=== PATIENT | female | born 1935 | race Caucasian/White ===

== ENCOUNTER 2018-02-08 17:06 | Inpatient (IN) | payer MEDICARE, OTHER ==
--- NOTE | 2018-02-08 17:30 | ED Physician Chart ---
ED Chief Complaint/HPI - Patient Information Date Seen:: 02/08/18 Time Seen:: 17:00 Chief Complaint:: Agitation History of Present Illness:: onset x 3 days of agitation and hostile behavior; no SIs, trauma, H/as, neck pain, C/P, SOB, cough, Abd. Pain, A/N/V/D/C, fever, chills, or urinary s/s Allergies:: Allergies Allergy/AdvReac Type Severity Reaction Status Date / Time adhesive Allergy Verified 04/08/16 11:53 albuterol Allergy Verified 04/08/16 11:53 amiodarone Allergy Verified 04/08/16 11:53 bacitracin Allergy Verified 04/08/16 11:53 baclofen Allergy Verified 02/08/18 17:13 cephalexin Allergy Verified 04/08/16 11:53 doxycycline Allergy Verified 04/08/16 11:53 erythromycin base Allergy Verified 04/08/16 11:53 latex Allergy Verified 04/08/16 11:53 neomycin Allergy Verified 04/08/16 11:53 orphenadrine Allergy Verified 04/08/16 11:53 Penicillins [PCN] Allergy Verified 04/08/16 11:53 polymyxin B Allergy Verified 04/08/16 11:53 sulfamethoxazole Allergy Verified 04/08/16 11:53 [From Bactrim] tamsulosin Allergy Verified 04/08/16 11:53 tetracycline Allergy Verified 04/08/16 11:53 trimethoprim [From Bactrim] Allergy Verified 04/08/16 11:53 NATURAL RUBBER Allergy Uncoded 05/27/15 19:18 Historian:: Patient, EMS Review:: Nurse's Note Reviewed, Old Chart Reviewed, EMS run form Reviewed <Zachariah Canales - Last Filed: 02/08/18 17:25> - Patient Information Allergies:: Allergies Allergy/AdvReac Type Severity Reaction Status Date / Time adhesive Allergy Verified 04/08/16 11:53 albuterol Allergy Verified 04/08/16 11:53 amiodarone Allergy Verified 04/08/16 11:53 bacitracin Allergy Verified 04/08/16 11:53 baclofen Allergy Verified 02/08/18 17:13 cephalexin Allergy Verified 04/08/16 11:53 doxycycline Allergy Verified 04/08/16 11:53 erythromycin base Allergy Verified 04/08/16 11:53 latex Allergy Verified 04/08/16 11:53 neomycin Allergy Verified 04/08/16 11:53 orphenadrine Allergy Verified 04/08/16 11:53 Penicillins [PCN] Allergy Verified 04/08/16 11:53 polymyxin B Allergy Verified 04/08/16 11:53 sulfamethoxazole Allergy Verified 02/08/18 17:28 [From Bactrim] tamsulosin Allergy Verified 04/08/16 11:53 tetracycline Allergy Verified 04/08/16 11:53 trimethoprim [From Bactrim] Allergy Verified 02/08/18 17:28 NATURAL RUBBER Allergy Uncoded 05/27/15 19:18 Vitals:: Vital Signs - 8 hr 02/08/18 17:15 Temp 97.0 F HR 100 RR 21 BP 132/73 O2 Sat % 95 <Kurtis Haywood - Last Filed: 02/08/18 19:31> ED Review of Systems - Review of Systems General/Constitutional: No fever, No chills, No weight loss, No weakness, No diaphoresis, No edema, No loss of appetite Skin: No skin lesions, No rash, No bruising Head: No headache, No light-headedness Eyes: No loss of vision, No pain, No diplopia ENT: No earache, No nasal drainage, No sore throat, No tinnitus Neck: No neck pain, No swelling, No thyromegaly, No stiffness, No mass noted Cardio Vascular: No chest pain, No palpitations, No PND, No orthopnea, No edema Pulmonary: No SOB, No cough, No sputum, No wheezing GI: No nausea, No vomiting, No diarrhea, No pain, No melena, No hematochezia, No constipation, No hematemesis G/U: No dysuria, No frequency, No hematuria, No nacturia Electrical Prospector: No vaginal discharge, No abnormal vaginal bleed, No contraction Musculoskeletal: No bone or joint pain, No back pain, No muscle pain Endocrine: No polyuria, No polydipsia Psychiatric: Prior psych history, Depression, Anxiety, No suicidal ideation, No homicidal ideation, No auditory hallucination, No visual hallucination Hematopoietic: No bruising, No lymphadenopathy Allergic/Immuno: No urticaria, No angioedema Neurological: No syncope, No focal symptoms, No weakness, No paresthesia, No headache, No seizure, No dizziness, No confusion, No vertigo <Zachariah Canales - Last Filed: 02/08/18 17:25> ED Past Medical History - Past Medical History Obtainable: Yes Past Medical History: HTN, CAD, Dyslipidemia, Arthritis Family History: Heart disease, HTN Social History: Non Smoker, No Alcohol, No Drug Use, Single, Care Facility Surgical History: None Psychiatricy History: Depression, Bipolar Medication: Reviewed <AllyZachariah Last Filed: 02/08/18 17:25> Family Medical History - Family Member Brother History Unknown: Yes Ethnicity: Non- Living Status: Hx Family Cancer: Yes (SKIN CANCER) Hx Family Stroke: Yes Father History Unknown: Yes <Zachariah Canales Filed: 02/08/18 17:25> ED Physical Exam - Physical Examination General/Constitutional: Awake, Well-developed, well-nourished, Alert, No distress, GCS 15, Non-toxic appearing, Ambulatory Head: Atraumatic Eyes: Lids, conjuctiva normal, PERRL, EOMI Skin: Nl inspection, No rash, No skin lesions, No ecchymosis, Well hydrated, No lymphadenopathy ENMT: External ears, nose nl, TM canals nl, Nasal exam nl, Lips, teeth, gums nl , Oropharynx nl, Tonsils nl Neck: Nontender, Full ROM w/o pain, No JVD, No nuchal rigidity, No bruit, No mass, No stridor Respiratory: Nl effort/Exclusion, Clear to Auscultation, No Wheeze/Rhonchi/Rales Cardio Vascular: RRR, No murmur, gallop, rubs, NL S1 S2, Carotid/Femoral/Distal pulses equal bilaterally GI: No tenderness/rebounding/guarding, No organomegaly, No hernia, Normal BS's, Nondistended, No mass/bruits, No McBurney tenderness : No CVA tenderness Extremities: No tenderness or effusion, Full ROM, normal strength in all extremities, No edema, Normal digits & nails Neuro/Psych: Alert/oriented, DTR's symmetric, Normal sensory exam, Normal motor strength, Judgement/insight normal, Mood normal, Normal gait, No focal deficits Misc: Normal back, No paraspinal tenderness <AllyZachariah - Last Filed: 02/08/18 17:25> ED Assessment - Assessment General Assessment: Patient has had aggressive behavior for the last 5 days at her [facility] facility. 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 Surgeries hysterectomy and possible ankle surgery. Habits patient never smoked but may Use alcohol. Family history positive for hypertension. Patient is well- developed well-nourished no acute distress. She is loud, angry, uses profanity. When asked the correct year she states she knows but declined to say. Patient's well-developed well-nourished no acute distress. HEENT grossly normal. Patient is normally. Anterior chest clear to auscultate. Heart regular rhythm with no murmur or extra sound abdomen is protuberant, soft and without guarding.. <Kurtis Haywood - Last Filed: 02/08/18 19:31> ED Septic Shock - . Is Septic Shock (SBP<90, OR Lactate>4 mmol\L) present?: No <Zachariah Canales - Last Filed: 02/08/18 17:25> - <6hrs of presentation: Vital Signs: Vital Signs - 8 hr 02/08/18 17:15 Temp 97.0 F HR 100 RR 21 BP 132/73 O2 Sat % 95 <Kurtis Haywood - Last Filed: 02/08/18 19:31> ED Reassessment (Disposition) - Diagnosis Diagnosis:: Agitation; aggressive behavior - Patient Disposition Admitting Medical Physician:: Emiliano Ann Admitting Psych Physician:: Adelso Aldana <Kurtis Haywood - Last Filed: 02/08/18 19:31>
[2018-02-08] MEDS ORDERED: Haloperidol Lactate 5 mg/mL 1mL Vial IM STA ×2 (17:39→19:37)
[2018-02-08] MEDS ORDERED: Haloperidol Lactate 5 mg/mL 1mL Vial ONE ×2 (17:44→19:22)
[2018-02-08 22:19] LABS: % BASOPHILS 0.6 % (0.0-2.0); % LYMPHOCYTES 24.1 % (20.0-50.0); % MONOCYTES 12.1 % (2.0-10.0); % NEUTROPHILS 60.2 % (40.0-80.0); EOSINOPHILE ABSOLUTE 0.2 Th/cmm (0.1-0.4); HEMATOCRIT 37.9 % (41.0-60); HEMOGLOBIN 12.5 gm/dL (12-16); LYMPHOCYTE ABSOLUTE 1.9 Th/cmm (1.5-3.0); MEAN CELL VOLUME 88.8 fl (81-100); MEAN CORPUSCULAR HEMOGLOBIN 29.3 pg (27.0-31.0); MEAN PLATELET VOLUME 9.6 fl; MONOCYTE ABSOLUTE 0.9 Th/cmm (0.3-1.0); NEUTROPHILE ABSOLUTE 4.8 Th/cmm (1.8-8.0); PLATELET COUNT 151 Th/cmm (150-400); RED BLOOD COUNT 4.27 Mil/cmm (3.80-5.20); RED CELL DISTRIBUTION WIDTH 13.1 % (11.5-20.0); WHITE BLOOD COUNT 7.8 Th/cmm (4.8-10.8)
[2018-02-08 22:38] LABS: ACETAMINOPHEN < 10.0 ug/mL (10.0-30.0); ALB/GLOB RATIO 1.2 (1.0-1.8); ALBUMIN 3.4 gm/dL (3.7-5.3); ALKALINE PHOSPHATASE 88 U/L (34-104); ANION GAP 11.1 (7.0-16.0); BILIRUBIN,TOTAL 0.5 mg/dL (0.3-1.0); BUN - UREA NITROGEN 33 mg/dL (7-25); CARBON DIOXIDE 25.9 mEq/L (21.0-31.0); CHLORIDE 100 mEq/L (98-107); CHOLESTEROL 120 mg/dL (<200); CREATININE - SERUM 1.3 mg/dL (0.6-1.2); GLUCOSE 138 mg/dL (70-105); HDL -HIGH DENSITY LIPOPROTEIN 34 mg/dL (23-92); SALICYLATES (ASPIRIN) < 25.0 mg/L (30.0-100.0); SGOT 13 U/L (13-39); SGPT/ALT 11 U/L (7-52); SODIUM SERUM 133 mEq/L (136-145); TOTAL PROTEIN,SERUM 6.3 gm/dL (6.0-8.3); TRIGLYCERIDES 107 mg/dL (<150)
[2018-02-09 01:46] VITALS: BP 119/90
[2018-02-09] MEDS ORDERED: Maalox 30 mL Cup PO PRN (01:57)
[2018-02-09] MEDS ORDERED: APAP/Oxycodone 5/325mg Oral Tab PO PRN ×2 (01:57→03:18)
[2018-02-09] MEDS ORDERED: Ipratropium Neb 0.5 mg/2.5 mL UD HHN PRN (06:45)
[2018-02-09] MEDS ORDERED: Diltiazem CD 120 mg 24H PO SCH (07:30)
[2018-02-09] MEDS ORDERED: INSULIN ASPART, RECOMBINANT 100 UNITS/ML SUBQ SCH (07:30)
[2018-02-09] MEDS: Aspirin 81mg Chewable Tab PO SCH (08:00)
[2018-02-09] MEDS: Diltiazem 30 mg Tab PO SCH ×2 (08:00→16:05)
[2018-02-09] MEDS: Fish Oil 1,000 MG SGL PO SCH ×2 (08:00→16:05)
[2018-02-09] MEDS: Pantoprazole 40 mg EC Tab PO SCH (08:01)
[2018-02-09] MEDS: Multivitamin w/ Minerals Tab PO SCH (08:01)
--- NOTE | 2018-02-09 09:22 | History and Physical ---
History of Present Illness - HPI Chief Complaint: Increased in agitation HPI: Patient is a permanent resident of a SNF, she was send for evaluation due to increased in agitation. 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 OPERATOR: Report: No Pertinent Hx GI: Report: No Pertinent Hx Psych: Report: Psychosis, Schizophrenia Musculoskeletal: Report: No Pertinent Hx Rheumatologic: Report: No pertinent Hx Infectious Disease: Report: No Pertinent Hx Renal/: Report: No Pertinent Hx Endocrine: Report: Diabetes, Hypothyroidism Dermatology: Report: No Pertinent Hx - Past Surgical History Past Surgical History: No pertinent Hx Family Medical History - Family Member Brother History Unknown: Yes Ethnicity: Unknown Living Status: Unknown Hx Family Cancer: Yes (SKIN CANCER) Hx Family Stroke: Yes Father History Unknown: Yes Ethnicity: Unknown Living Status: Unknown Social History Smoke: No Alcohol: None Drugs: None Lives: Shelter Domestic Violence: Negative - Medications Home Medications: Home Medication Medication Instructions Recorded Type Aspirin [Aspirin Chewable] 81 mg PO DAILY 05/27/15 History Carvedilol [Coreg] 3.125 mg PO BID 05/27/15 History Docusate Sodium [Colace] 100 mg PO DAILY 05/27/15 History Furosemide [Lasix] 20 mg PO DAILY 05/27/15 History Insulin Glargine, Recombinan 40 units SUBQ Q12HR 05/27/15 History [Lantus] Lactobac/Bifidobac/Glob Pr Con 1 each PO QPM #0 05/27/15 History [Ultra Alannah Plus Capsule] Cyanocobalamin/Folic Acid [Vitamin 1,000 mcg PO DAILY 04/16/16 History Q27-Xelig Acid Tablet] Fluocinonide 0.05% Cream [Lidex 1 appl TP Q12HR PRN 04/16/16 History 0.05%] APAP/Oxycodone 5/325mg Oraltab 1 tab PO Q6H PRN #0 tab 04/21/16 Rx [Percocet 5/325Mg Oral Tab] Lorazepam [Ativan] 0.5 mg PO Q6H PRN #0 tab 04/21/16 Rx Diltiazem [Cardizem*] 60 mg PO DAILY #0 tab 04/27/16 Rx Atorvastatin Calcium [Lipitor] 40 mg PO HS 02/08/18 History Cranberry Fruit Extract [Cranberry] 425 mg PO DAILY 02/08/[address] [Depakote DR] 125 mg PO BID 02/08/18 History Fish Oil [Kaplan 3] 1,000 mg PO BID 02/08/18 History Folic Acid 0.8 mg PO DAILY 02/08/18 History Gabapentin [Neurontin] 400 mg PO Q8HR 02/08/18 History Insulin Aspart, Recombinant 5 units SUBQ ACHS 02/08/18 History [NovoLOG] Ipratropium Neb 0.5 mg/2.5 mL 0.5 mg HHN Q6HR PRN 02/08/18 History [Atrovent Neb 0.5MG/2.5ML] Losartan Potassium [Cozaar] 50 mg PO DAILY 02/08/18 History Magnesium Oxide [Mag-Oxide] 500 mg PO DAILY 02/08/18 History Montelukast [Singulair] 10 mg PO HS 02/08/18 History Multivitamin w/ Minerals 1 tab PO DAILY 02/08/18 History [Theragran M] Pantoprazole Sodium 40 mg PO DAILY 02/08/18 History Propafenone HCl [Rythmol] 325 mg PO Q12H 02/08/18 History QUEtiapine Fumarate [SEROquel] 150 mg PO BID 02/08/18 History Spironolactone [Aldactone] 25 mg PO DAILY 02/08/18 History - Allergies Allergies/Adverse Reactions: Allergies Allergy/AdvReac Type Severity Reaction Status Date / Time adhesive Allergy Verified 04/08/16 11:53 albuterol Allergy Verified 04/08/16 11:53 amiodarone Allergy Verified 04/08/16 11:53 bacitracin Allergy Verified 04/08/16 11:53 baclofen Allergy Verified 02/08/18 17:13 cephalexin Allergy Verified 04/08/16 11:53 doxycycline Allergy Verified 04/08/16 11:53 erythromycin base Allergy Verified 04/08/16 11:53 latex Allergy Verified 04/08/16 11:53 neomycin Allergy Verified 04/08/16 11:53 orphenadrine Allergy Verified 04/08/16 11:53 Penicillins [PCN] Allergy Verified 04/08/16 11:53 polymyxin B Allergy Verified 04/08/16 11:53 sulfamethoxazole Allergy Verified 02/08/18 17:28 [From Bactrim] tamsulosin Allergy Verified 04/08/16 11:53 tetracycline Allergy Verified 04/08/16 11:53 trimethoprim [From Bactrim] Allergy Verified 02/08/18 17:28 NATURAL RUBBER Allergy Uncoded 05/27/15 19:18 Review of Systems - Review of Systems Constitutional: Report: Weakness Eyes: Report: No Significant ENT: Report: No Significant Respiratory: Report: No Significant Cardiovascular: Report: No Significant Gastrointestinal: Report: No Significant Genitourinary: Report: No Significant Musculoskeletal: Report: No Significant Skin: Report: No Significant Neurological: Report: No Significant Physical Exam - Physical Exam HEENT: Report: Ears Nose Throat within normal limits Neck: Report: Within normal limits Cardiovascular Systems: Report: Regular, Rate and Rhythm Respiratory: Report: Breath Sounds are within normal limits Abdomen: Report: Non-tender to palpation Back: Report: Inspection of back is within normal limits. Extremities: Report: Non-tender to palpation. Skin: Report: Color of skin is within normal limits, Warm, Dry Neuro/Psych: Report: Disoriented to name time or place - Lab Results All Lab Results last 24 hours: Laboratory Results - last 24 hr 02/08/18 02/08/18 02/08/18 21:54 21:54 21:54 WBC 7.8 RBC 4.27 Hgb 12.5 Hct 37.9 L MCV 88.8 MCH 29.3 MCHC Differential 33.0 RDW 13.1 Plt Count 151 MPV 9.6 Neutrophils % 60.2 Lymphocytes % 24.1 Monocytes % 12.1 H Eosinophils % 3.0 Basophils % 0.6 Sodium 133 L Potassium 4.0 Chloride 100 Carbon Dioxide 25.9 Anion Gap 11.1 BUN 33 H Creatinine 1.3 H Est GFR ( Amer) TNP Est GFR (Non-Af Amer) TNP BUN/Creatinine Ratio 25.4 Glucose 138 H Calcium 9.0 Total Bilirubin 0.5 AST 13 ALT 11 Alkaline Phosphatase 88 Total Protein 6.3 Albumin 3.4 L Globulin 2.9 Albumin/Globulin Ratio 1.2 Triglycerides 107 Cholesterol 120 LDL Cholesterol Direct 68 L HDL Cholesterol 34 TSH 4.07 Salicylates < 25.0 L Acetaminophen < 10.0 L Valproic Acid Ethyl Alcohol < 10 02/08/18 21:54 WBC RBC Hgb Hct MCV MCH MCHC Differential RDW Plt Count MPV Neutrophils % Lymphocytes % Monocytes % Eosinophils % Basophils % Sodium Potassium Chloride Carbon Dioxide Anion Gap BUN Creatinine Est GFR ( Amer) Est GFR (Non-Af Amer) BUN/Creatinine Ratio Glucose Calcium Total Bilirubin AST ALT Alkaline Phosphatase Total Protein Albumin Globulin Albumin/Globulin Ratio Triglycerides Cholesterol LDL Cholesterol Direct HDL Cholesterol TSH Salicylates Acetaminophen Valproic Acid < 10.0 L Ethyl Alcohol - Assessment Assessment: Patient is awake, alert, confused, not oriented. Dx: Increased in agitation, schizophrenia, DM, CAD, A-fib, HTN - Plan Plan: Patient under psychiatric care, will continue with SNF meds.
[2018-02-09] MEDS: Insulin Detemir 100 units/mL 10mL Vial SUBQ SCH ×2 (10:37→20:51)
[2018-02-09] MEDS: INSULIN ASPART SLIDING SCALE 100 UNITS/ML UNIT SUBQ SCH ×3 (11:07→20:50)
[2018-02-09] MEDS ORDERED: Haloperidol Lactate 5 mg/mL 1mL Vial IM ONE (16:02)
[2018-02-09] MEDS ORDERED: Haloperidol Lactate 5 mg/mL 1mL Vial ONE (16:03)
--- NOTE | 2018-02-09 19:40 | Psychosocial Evaluation ---
DATE OF SERVICE: 02/09/2018 IDENTIFYING DATA: The patient is an 82-year-old woman, resident of [facility]. Information obtained by directly interviewing the patient as well as reviewing the admission papers and they are reliable. DISPOSITION HOSPITALIZATION: The patient is admitted 5150 as a danger to others and being gravely disabled. CHIEF COMPLAINT: "I should not be in here to get me out of here." HISTORY OF PRESENT ILLNESS: This is one of multiple psychiatric hospitalizations for this patient who was under my care in 2016. The patient is reported to have been diagnosed to have psychosis and is out of control, screaming and yelling. The patient has been yelling, screaming and striking out at the staff members. On that basis, the patient has been placed on a 5150 and admitted over here for stabilization. PAST PSYCHIATRIC HISTORY: Sleep and appetite prior to the hospitalization are reported to be poor. The patient is reported to have been having major problem for the past 1B and could not be contained at a lower level of care. PAST PSYCHIATRIC HISTORY: The patient has a long history of psychiatric problems and patient had been medicated in the past. MEDICAL HISTORY AND PHYSICAL EXAMINATION: Requested to be done by Dr. Ann. SUBSTANCE ABUSE HISTORY: None. PHYSICAL OR SEXUAL ABUSE HISTORY: None. LEGAL PROBLEMS: None at this time. 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 The patient is reporting that her a long time ago. The patient has three adopted children, all of them are trying to kill her for no reason. MENTAL STATUS EXAMINATION: The patient is an 82-year-old woman looking her stated age, superficially cooperative. Eye contact is poor. Mood is irritable. Affect is constricted. The patient has been screaming and yelling and has been verbally abusive towards the staff members. The patient is alert and awake. Insight and judgment are very much impaired. Impulse control is very poor. The patient has paranoia, but denies any command hallucinations. The patient has no impulse control at this time. The patient's short term memory is noted to be poor. Long-term memory seems to be fair. DIAGNOSTIC IMPRESSION: AXIS I: Psychotic disorder, not otherwise specified. AXIS II: None. AXIS III: As per Dr. Ann. IMMEDIATE TREATMENT PLAN: The patient is going to be observed on inpatient unit, provided with supportive psychotherapy. The patient is going to be closely monitored. We encouraged to participate in the groups and verbalize the concerns. The patient is going to be continued on her valproic acid 120 mg twice a day and the patient is going to be continued with the Seroquel, which is going to be 50 mg twice a day, which is going to be gradually increased. Estimated length of stay 5-7 days. DISCHARGE CRITERIA: When she no longer a threat to self or others and be able to cope up with the stress. Please note that the patient is to be discharged to a lower level of care yet. [facility]# [id number]
[2018-02-09 20:13] LABS: A1C % 9.5 % (4.0-6.0)
[2018-02-10] MEDS: INSULIN ASPART SLIDING SCALE 100 UNITS/ML UNIT SUBQ SCH ×4 (06:29→21:08)
[2018-02-10] MEDS: Aspirin 81mg Chewable Tab PO SCH (08:15)
[2018-02-10] MEDS: Diltiazem 30 mg Tab PO SCH ×2 (08:16→17:24)
[2018-02-10] MEDS: Fish Oil 1,000 MG SGL PO SCH ×2 (08:16→17:25)
[2018-02-10] MEDS: Pantoprazole 40 mg EC Tab PO SCH (08:17)
[2018-02-10] MEDS: Insulin Detemir 100 units/mL 10mL Vial SUBQ SCH ×2 (08:17→21:09)
[2018-02-10] MEDS: Multivitamin w/ Minerals Tab PO SCH (08:17)
--- NOTE | 2018-02-10 09:51 | General Progress Note ---
Subjective - Review of Systems Service Date: 02/10/18 Subjective: Confused Objective - Results Result Diagrams: 02/08/18 21:54 02/08/18 21:54 Recent Labs: Laboratory Last Values WBC 7.8 Th/cmm (4.8-10.8) 02/08/18 21:54 RBC 4.27 Mil/cmm (3.80-5.20) 02/08/18 21:54 Hgb 12.5 gm/dL (12-16) 02/08/18 21:54 Hct 37.9 % (41.0-60) L 02/08/18 21:54 MCV 88.8 fl (81-100) 02/08/18 21:54 MCH 29.3 pg (27.0-31.0) 02/08/18 21:54 MCHC Differential 33.0 pg (28.0-36.0) 02/08/18 21:54 RDW 13.1 % (11.5-20.0) 02/08/18 21:54 Plt Count 151 Th/cmm (150-400) 02/08/18 21:54 MPV 9.6 fl 02/08/18 21:54 Neutrophils % 60.2 % (40.0-80.0) 02/08/18 21:54 Lymphocytes % 24.1 % (20.0-50.0) 02/08/18 21:54 Monocytes % 12.1 % (2.0-10.0) H 02/08/18 21:54 Eosinophils % 3.0 % (0.0-5.0) 02/08/18 21:54 Basophils % 0.6 % (0.0-2.0) 02/08/18 21:54 Sodium 133 mEq/L (136-145) L 02/08/18 21:54 Potassium 4.0 mEq/L (3.5-5.1) 02/08/18 21:54 Chloride 100 mEq/L (98-107) 02/08/18 21:54 Carbon Dioxide 25.9 mEq/L (21.0-31.0) 02/08/18 21:54 Anion Gap 11.1 (7.0-16.0) 02/08/18 21:54 BUN 33 mg/dL (7-25) H 02/08/18 21:54 Creatinine 1.3 mg/dL (0.6-1.2) H 02/08/18 21:54 Est GFR ( Amer) TNP 02/08/18 21:54 Est GFR (Non-Af Amer) TNP 02/08/18 21:54 BUN/Creatinine Ratio 25.4 02/08/18 21:54 Glucose 138 mg/dL (70-105) H 02/08/18 21:54 POC Glucose 221 MG/DL (70 - 105) H 02/10/18 05:51 Hemoglobin A1c % 9.5 % (4.0-6.0) H 02/08/18 21:54 Calcium 9.0 mg/dL (8.6-10.3) 02/08/18 21:54 Total Bilirubin 0.5 mg/dL (0.3-1.0) 02/08/18 21:54 AST 13 U/L (13-39) 02/08/18 21:54 ALT 11 U/L (7-52) 02/08/18 21:54 Alkaline Phosphatase 88 U/L (34-104) 02/08/18 21:54 Total Protein 6.3 gm/dL (6.0-8.3) 02/08/18 21:54 Albumin 3.4 gm/dL (3.7-5.3) L 02/08/18 21:54 Globulin 2.9 gm/dL 02/08/18 21:54 Albumin/Globulin Ratio 1.2 (1.0-1.8) 02/08/18 21:54 Triglycerides 107 mg/dL (<150) 02/08/18 21:54 Cholesterol 120 mg/dL (<200) 02/08/18 21:54 LDL Cholesterol Direct 68 mg/dL (75-193) L 02/08/18 21:54 HDL Cholesterol 34 mg/dL (23-92) 02/08/18 21:54 TSH 4.07 uIU/ml (0.34-5.60) 02/08/18 21:54 Salicylates < 25.0 mg/L (30.0-100.0) L 02/08/18 21:54 Acetaminophen < 10.0 ug/mL (10.0-30.0) L 02/08/18 21:54 Valproic Acid < 10.0 ug/mL (50.0-100.0) L 02/08/18 21:54 Ethyl Alcohol < 10 mg/dL (0-10) 02/08/18 21:54 - Physical Exam Vitals and I&O: Vital Signs Temp 97.2 F 02/09/18 14:00 Pulse 84 02/10/18 07:03 Resp 20 02/10/18 07:03 BP 108/66 02/09/18 14:00 Pulse Ox 95 02/10/18 07:03 Intake & Output 02/09/18 02/10/18 02/10/18 18:59 06:59 18:59 Intake Total 900 120 Balance 900 120 Intake: Oral 900 120 Other: # Voids 3 3 # Bowel Movements 1 Active Medications: Current Medications Acetaminophen (Tylenol) 650 mg PO Q4HR PRN PRN Reason: Mild Pain / Temp above 100 Stop: 04/10/18 01:56 Al Hydrox/Mg Hydrox/Simethicone (Maalox) 30 ml PO Q4HR PRN PRN Reason: GI DISTRESS Stop: 04/10/18 01:56 Aspirin (Aspirin Chewable) 81 mg PO DAILY [facility] Stop: 04/10/18 08:59 Last Admin: 02/10/18 08:15 Dose: Not Given Atorvastatin Calcium (Lipitor) 40 mg PO HS [facility] PRN Reason: Protocol Stop: 04/10/18 20:59 Last Admin: 02/09/18 20:50 Dose: Not Given Carvedilol (Coreg) 3.125 mg PO BID [facility] Stop: 04/10/18 08:59 Last Admin: 02/10/18 08:15 Dose: Not Given Diltiazem HCl (Cardizem) 30 mg PO BID [facility] Stop: 04/10/18 08:59 Last Admin: 02/10/18 08:16 Dose: Not Given Divalproex Sodium (Depakote Dr) 125 mg PO BID [facility] PRN Reason: Protocol Stop: 04/10/18 08:59 Last Admin: 02/10/18 08:16 Dose: Not Given Docusate Sodium (Colace) 100 mg PO DAILY [facility] Stop: 04/10/18 08:59 Last Admin: 02/10/18 08:16 Dose: Not Given Fish Oil ([place] 3) 1,000 mg PO BID [facility] Stop: 04/10/18 08:59 Last Admin: 02/10/18 08:16 Dose: Not Given Folic Acid (Folate) 1 mg PO DAILY [facility] Stop: 04/10/18 08:59 Last Admin: 02/10/18 08:17 Dose: Not Given Furosemide (Lasix) 20 mg PO DAILY [facility] Stop: 04/10/18 08:59 Last Admin: 02/10/18 08:17 Dose: Not Given Gabapentin (Neurontin) 400 mg PO Q8H [facility] Stop: 04/10/18 01:59 Last Admin: 02/10/18 02:00 Dose: Not Given Insulin Aspart (Novolog Insulin Sliding Scale) 0 units SUBQ ACHS [facility] PRN Reason: Protocol Stop: 04/10/18 11:29 Last Admin: 02/10/18 06:29 Dose: 4 units Insulin Detemir (Levemir Insulin) 40 units SUBQ Q12HR [facility] PRN Reason: Protocol Stop: 04/10/18 08:59 Last Admin: 02/10/18 08:17 Dose: Not Given Ipratropium [place] (Atrovent Neb 0.5mg/2.5ml) 0.5 mg HHN Q6HRT PRN PRN Reason: Shortness of Breath Stop: 04/10/18 06:44 Lorazepam (Ativan) 0.5 mg PO Q6HR PRN; Protocol PRN Reason: Anxiety Stop: 03/11/18 01:56 Losartan Potassium (Cozaar) 50 mg PO DAILY [facility] Stop: 04/10/18 08:59 Last Admin: 02/10/18 08:17 Dose: Not Given Magnesium Oxide (Mag-Oxide) 400 mg PO DAILY [facility] Stop: 04/10/18 08:59 Last Admin: 02/10/18 08:17 Dose: Not Given Montelukast Sodium (Singulair) 10 mg PO HS [facility] Stop: 04/10/18 20:59 Last Admin: 02/09/18 20:52 Dose: Not Given Oxycodone/Acetaminophen (Percocet 5/325mg Oral Tab) 1 tab PO Q6H PRN PRN Reason: moderate pain 4-6 Stop: 04/10/18 03:14 Pantoprazole Sodium (Protonix) 40 mg PO DAILY [facility] Stop: 04/10/18 08:59 Last Admin: 02/10/18 08:17 Dose: Not Given Propafenone HCl (Rythmol) 225 mg PO Q8HR [facility] Stop: 04/10/18 12:59 Last Admin: 02/10/18 05:45 Dose: Not Given Quetiapine Fumarate (Seroquel) 50 mg PO BID [facility] PRN Reason: Protocol Stop: 04/10/18 08:59 Last Admin: 02/10/18 08:17 Dose: Not Given Spironolactone (Aldactone) 25 mg PO DAILY [facility] Stop: 04/10/18 08:59 Last Admin: 02/10/18 08:17 Dose: Not Given Zolpidem Tartrate (Ambien) 5 mg PO PRN PRN Reason: Insomnia Stop: 04/10/18 01:56 General: Alert, No acute distress HEENT: Atraumatic Neck: Supple Cardiovascular: Regular rate Lungs: Clear to auscultation Abdomen: Bowel sounds, Soft Extremities: Other (No edema) Neurological: Other (Unstable gait) Skin: Other (warm and dry) Psych/Mental Status: Other (Confused, not oriented) - Procedures Procedures: Procedures Procedure Code Date DRAINAGE OF RIGHT AXILLA, OPEN APPROACH [id number] 04/21/16 DRAINAGE OF SKIN ABSCESS 03303 04/21/16 OTHER GROUP THERAPY 94.44 05/27/15 Assessment/Plan - Assessment Assessment: Patient is awake, alert, confused, not oriented. Dx: Increased in agitation, schizophrenia, DM, CAD, A-fib, HTN - Plan Plan: Patient under psychiatric care, will continue with SNF meds.
--- NOTE | 2018-02-10 20:54 | Progress Notes ---
DATE: 02/10/2018 SUBJECTIVE: Staff was spoken to. The patient is interviewed. Mood is irritable. Affect is constricted. Coping skills at this time are noted to be very poor. The patient has been screaming and yelling and is insisting that she should be discharged. The patient has paranoid delusions. Mood swings are still noted. Coping skills are noted to be very poor. The patient has been stating that there is no reason for her to be in here. The patient has been noted to have both short and long-term memory deficits. ASSESSMENT: The patient is still psychotic and impulsive. PLAN: To continue the patient with the current medications. I encouraged the patient to verbalize the concerns rather than to act out. [facility]# [id number]
[2018-02-11] MEDS: INSULIN ASPART SLIDING SCALE 100 UNITS/ML UNIT SUBQ SCH ×4 (06:58→20:23)
[2018-02-11 07:47] LABS: % BASOPHILS 0.6 % (0.0-2.0); % LYMPHOCYTES 23.9 % (20.0-50.0); % MONOCYTES 10.7 % (2.0-10.0); % NEUTROPHILS 57.8 % (40.0-80.0); EOSINOPHILE ABSOLUTE 0.5 Th/cmm (0.1-0.4); LYMPHOCYTE ABSOLUTE 1.6 Th/cmm (1.5-3.0); MEAN CELL VOLUME 87.2 fl (81-100); MEAN CORPUSCULAR HEMOGLOBIN 29.7 pg (27.0-31.0); MEAN PLATELET VOLUME 9.2 fl; MONOCYTE ABSOLUTE 0.7 Th/cmm (0.3-1.0); NEUTROPHILE ABSOLUTE 3.7 Th/cmm (1.8-8.0); PLATELET COUNT 178 Th/cmm (150-400); RED BLOOD COUNT 4.36 Mil/cmm (3.80-5.20); RED CELL DISTRIBUTION WIDTH 13.2 % (11.5-20.0); WHITE BLOOD COUNT 6.5 Th/cmm (4.8-10.8)
[2018-02-11 08:09] LABS: ALB/GLOB RATIO 1.1 (1.0-1.8); ALBUMIN 3.6 gm/dL (3.7-5.3); ALKALINE PHOSPHATASE 95 U/L (34-104); ANION GAP 10.1 (7.0-16.0); BILIRUBIN,TOTAL 0.7 mg/dL (0.3-1.0); BUN - UREA NITROGEN 20 mg/dL (7-25); CALCIUM SERUM 9.2 mg/dL (8.6-10.3); CARBON DIOXIDE 26.3 mEq/L (21.0-31.0); CHLORIDE 103 mEq/L (98-107); CREATININE - SERUM 0.9 mg/dL (0.6-1.2); GLUCOSE 213 mg/dL (70-105); POTASSIUM SERUM 3.4 mEq/L (3.5-5.1); SGOT 12 U/L (13-39); SGPT/ALT 9 U/L (7-52); SODIUM SERUM 136 mEq/L (136-145); TOTAL PROTEIN,SERUM 6.9 gm/dL (6.0-8.3)
--- NOTE | 2018-02-11 08:54 | General Progress Note ---
Subjective - Review of Systems Service Date: 02/11/18 Subjective: Confused Objective - Results Result Diagrams: 02/11/18 07:17 02/11/18 07:17 Recent Labs: Laboratory Last Values WBC 6.5 Th/cmm (4.8-10.8) 02/11/18 07:17 RBC 4.36 Mil/cmm (3.80-5.20) 02/11/18 07:17 Hgb 13.0 gm/dL (12-16) 02/11/18 07:17 Hct 38.0 % (41.0-60) L 02/11/18 07:17 MCV 87.2 fl (81-100) 02/11/18 07:17 MCH 29.7 pg (27.0-31.0) 02/11/18 07:17 MCHC Differential 34.0 pg (28.0-36.0) 02/11/18 07:17 RDW 13.2 % (11.5-20.0) 02/11/18 07:17 Plt Count 178 Th/cmm (150-400) 02/11/18 07:17 MPV 9.2 fl 02/11/18 07:17 Neutrophils % 57.8 % (40.0-80.0) 02/11/18 07:17 Lymphocytes % 23.9 % (20.0-50.0) 02/11/18 07:17 Monocytes % 10.7 % (2.0-10.0) H 02/11/18 07:17 Eosinophils % 7.0 % (0.0-5.0) H 02/11/18 07:17 Basophils % 0.6 % (0.0-2.0) 02/11/18 07:17 Sodium 136 mEq/L (136-145) 02/11/18 07:17 Potassium 3.4 mEq/L (3.5-5.1) L 02/11/18 07:17 Chloride 103 mEq/L (98-107) 02/11/18 07:17 Carbon Dioxide 26.3 mEq/L (21.0-31.0) 02/11/18 07:17 Anion Gap 10.1 (7.0-16.0) 02/11/18 07:17 BUN 20 mg/dL (7-25) 02/11/18 07:17 Creatinine 0.9 mg/dL (0.6-1.2) 02/11/18 07:17 Est GFR ( Amer) TNP 02/11/18 07:17 Est GFR (Non-Af Amer) TNP 02/11/18 07:17 BUN/Creatinine Ratio 22.2 02/11/18 07:17 Glucose 213 mg/dL (70-105) H 02/11/18 07:17 POC Glucose 199 MG/DL (70 - 105) H 02/11/18 06:08 Hemoglobin A1c % 9.5 % (4.0-6.0) H 02/08/18 21:54 Calcium 9.2 mg/dL (8.6-10.3) 02/11/18 07:17 Total Bilirubin 0.7 mg/dL (0.3-1.0) 02/11/18 07:17 AST 12 U/L (13-39) L 02/11/18 07:17 ALT 9 U/L (7-52) 02/11/18 07:17 Alkaline Phosphatase 95 U/L (34-104) 02/11/18 07:17 Total Protein 6.9 gm/dL (6.0-8.3) 02/11/18 07:17 Albumin 3.6 gm/dL (3.7-5.3) L 02/11/18 07:17 Globulin 3.3 gm/dL 02/11/18 07:17 Albumin/Globulin Ratio 1.1 (1.0-1.8) 02/11/18 07:17 Triglycerides 107 mg/dL (<150) 02/08/18 21:54 Cholesterol 120 mg/dL (<200) 02/08/18 21:54 LDL Cholesterol Direct 68 mg/dL (75-193) L 02/08/18 21:54 HDL Cholesterol 34 mg/dL (23-92) 02/08/18 21:54 TSH 4.07 uIU/ml (0.34-5.60) 02/08/18 21:54 Salicylates < 25.0 mg/L (30.0-100.0) L 02/08/18 21:54 Acetaminophen < 10.0 ug/mL (10.0-30.0) L 02/08/18 21:54 Valproic Acid < 10.0 ug/mL (50.0-100.0) L 02/08/18 21:54 Ethyl Alcohol < 10 mg/dL (0-10) 02/08/18 21:54 RPR NONREACTIVE (NONREACTIVE) 02/08/18 21:54 - Physical Exam Vitals and I&O: Vital Signs Temp 97.3 F 02/10/18 14:30 Pulse 74 02/11/18 07:36 Resp 20 02/11/18 07:36 BP 132/75 02/10/18 17:24 Pulse Ox 95 02/11/18 07:36 Active Medications: Current Medications Acetaminophen (Tylenol) 650 mg PO Q4HR PRN PRN Reason: Mild Pain / Temp above 100 Stop: 04/10/18 01:56 Al Hydrox/Mg Hydrox/Simethicone (Maalox) 30 ml PO Q4HR PRN PRN Reason: GI DISTRESS Stop: 04/10/18 01:56 Last Admin: 02/10/18 12:08 Dose: 30 ml Aspirin (Aspirin Chewable) 81 mg PO DAILY [facility] Stop: 04/10/18 08:59 Last Admin: 02/10/18 08:15 Dose: Not Given Atorvastatin Calcium (Lipitor) 40 mg PO [facility] PRN Reason: Protocol Stop: 04/10/18 20:59 Last Admin: 02/10/18 21:04 Dose: 40 mg Carvedilol (Coreg) 3.125 mg PO BID [facility] Stop: 04/10/18 08:59 Last Admin: 02/10/18 17:24 Dose: 3.125 mg Diltiazem HCl (Cardizem) 30 mg PO BID [facility] Stop: 04/10/18 08:59 Last Admin: 02/10/18 17:24 Dose: 30 mg Divalproex Sodium (Depakote Dr) 125 mg PO BID [facility] PRN Reason: Protocol Stop: 04/10/18 08:59 Last Admin: 02/10/18 17:25 Dose: 125 mg Docusate Sodium (Colace) 100 mg PO DAILY [facility] Stop: 04/10/18 08:59 Last Admin: 02/10/18 08:16 Dose: Not Given Fish Oil ([place] 3) 1,000 mg PO BID [facility] Stop: 04/10/18 08:59 Last Admin: 02/10/18 17:25 Dose: 1,000 mg Folic Acid (Folate) 1 mg PO DAILY [facility] Stop: 04/10/18 08:59 Last Admin: 02/10/18 08:17 Dose: Not Given Furosemide (Lasix) 20 mg PO DAILY [facility] Stop: 04/10/18 08:59 Last Admin: 02/10/18 08:17 Dose: Not Given Gabapentin (Neurontin) 400 mg PO Q8H [facility] Stop: 04/10/18 01:59 Last Admin: 02/11/18 02:00 Dose: Not Given Insulin Aspart (Novolog Insulin Sliding Scale) 0 units SUBQ ACHS [facility] PRN Reason: Protocol Stop: 04/10/18 11:29 Last Admin: 02/11/18 06:58 Dose: Not Given Insulin Detemir (Levemir Insulin) 40 units SUBQ Q12HR [facility] PRN Reason: Protocol Stop: 04/10/18 08:59 Last Admin: 02/10/18 21:09 Dose: 40 units Ipratropium [place] (Atrovent Neb 0.5mg/2.5ml) 0.5 mg HHN Q6HRT PRN PRN Reason: Shortness of Breath Stop: 04/10/18 06:44 Lorazepam (Ativan) 0.5 mg PO Q6HR PRN; Protocol PRN Reason: Anxiety Stop: 03/11/18 01:56 Last Admin: 02/10/18 22:00 Dose: 0.5 mg Losartan Potassium (Cozaar) 50 mg PO DAILY [facility] Stop: 04/10/18 08:59 Last Admin: 02/10/18 08:17 Dose: Not Given Magnesium Oxide (Mag-Oxide) 400 mg PO DAILY [facility] Stop: 04/10/18 08:59 Last Admin: 02/10/18 08:17 Dose: Not Given Montelukast Sodium (Singulair) 10 mg PO HS [facility] Stop: 04/10/18 20:59 Last Admin: 02/10/18 21:05 Dose: 10 mg Oxycodone/Acetaminophen (Percocet 5/325mg Oral Tab) 1 tab PO Q6H PRN PRN Reason: moderate pain 4-6 Stop: 04/10/18 03:14 Pantoprazole Sodium (Protonix) 40 mg PO DAILY [facility] Stop: 04/10/18 08:59 Last Admin: 02/10/18 08:17 Dose: Not Given Propafenone HCl (Rythmol) 225 mg PO Q8HR [facility] Stop: 04/10/18 12:59 Last Admin: 02/11/18 06:00 Dose: 225 mg Quetiapine Fumarate (Seroquel) 50 mg PO BID [facility] PRN Reason: Protocol Stop: 04/10/18 08:59 Last Admin: 02/10/18 17:24 Dose: 50 mg Spironolactone (Aldactone) 25 mg PO DAILY [facility] Stop: 04/10/18 08:59 Last Admin: 02/10/18 08:17 Dose: Not Given Zolpidem Tartrate (Ambien) 5 mg PO PRN PRN Reason: Insomnia Stop: 04/10/18 01:56 Last Admin: 02/10/18 21:00 Dose: 5 mg General: Alert, No acute distress HEENT: Atraumatic Neck: Supple Cardiovascular: Regular rate Lungs: Clear to auscultation Abdomen: Bowel sounds, Soft Extremities: Other (No edema) Neurological: Other (Unstable gait) Skin: Other (warm and dry) Psych/Mental Status: Other (Confused, not oriented) - Procedures Procedures: Procedures Procedure Code Date DRAINAGE OF RIGHT AXILLA, OPEN APPROACH [id number] 04/21/16 DRAINAGE OF SKIN ABSCESS 13125 04/21/16 OTHER GROUP THERAPY 94.44 05/27/15 Assessment/Plan - Assessment Assessment: Patient is awake, alert, confused, not oriented. Dx: Increased in agitation, schizophrenia, DM, CAD, A-fib, HTN - Plan Plan: Patient under psychiatric care, will continue with SNF meds.
[2018-02-11] MEDS: Pantoprazole 40 mg EC Tab PO SCH (10:37)
[2018-02-11] MEDS: Aspirin 81mg Chewable Tab PO SCH (10:37)
[2018-02-11] MEDS: Multivitamin w/ Minerals Tab PO SCH (10:38)
[2018-02-11] MEDS: Fish Oil 1,000 MG SGL PO SCH ×2 (10:38→17:19)
[2018-02-11] MEDS: Insulin Detemir 100 units/mL 10mL Vial SUBQ SCH ×2 (10:58→20:22)
[2018-02-11] MEDS: Diltiazem 30 mg Tab PO SCH ×2 (10:58→17:18)
--- NOTE | 2018-02-12 03:43 | Progress Notes ---
DATE: 02/11/2018 PSYCHIATRIC PROGRESS NOTE Staff was spoken to. Patient is interviewed. Mood is noted irritable. Affect is constricted. Insight and judgment at this time are noted to be impaired. Impulse control seems to be poor. Coping skills are also noted to be very poor. The patient is currently on Seroquel and Depakote and has been able to tolerate the medication. The patient continues to be verbally abusive and agitated and the patient is not ready to be discharged to a lower level of care yet. JOB# [id number]
[2018-02-12] MEDS: INSULIN ASPART SLIDING SCALE 100 UNITS/ML UNIT SUBQ SCH ×4 (06:34→21:12)
[2018-02-12] MEDS: Multivitamin w/ Minerals Tab PO SCH (09:00)
--- NOTE | 2018-02-12 09:32 | General Progress Note ---
Subjective - Review of Systems Service Date: 02/12/18 Subjective: Confused Objective - Results Result Diagrams: 02/11/18 07:17 02/11/18 07:17 Recent Labs: Laboratory Last Values WBC 6.5 Th/cmm (4.8-10.8) 02/11/18 07:17 RBC 4.36 Mil/cmm (3.80-5.20) 02/11/18 07:17 Hgb 13.0 gm/dL (12-16) 02/11/18 07:17 Hct 38.0 % (41.0-60) L 02/11/18 07:17 MCV 87.2 fl (81-100) 02/11/18 07:17 MCH 29.7 pg (27.0-31.0) 02/11/18 07:17 MCHC Differential 34.0 pg (28.0-36.0) 02/11/18 07:17 RDW 13.2 % (11.5-20.0) 02/11/18 07:17 Plt Count 178 Th/cmm (150-400) 02/11/18 07:17 MPV 9.2 fl 02/11/18 07:17 Neutrophils % 57.8 % (40.0-80.0) 02/11/18 07:17 Lymphocytes % 23.9 % (20.0-50.0) 02/11/18 07:17 Monocytes % 10.7 % (2.0-10.0) H 02/11/18 07:17 Eosinophils % 7.0 % (0.0-5.0) H 02/11/18 07:17 Basophils % 0.6 % (0.0-2.0) 02/11/18 07:17 Sodium 136 mEq/L (136-145) 02/11/18 07:17 Potassium 3.4 mEq/L (3.5-5.1) L 02/11/18 07:17 Chloride 103 mEq/L (98-107) 02/11/18 07:17 Carbon Dioxide 26.3 mEq/L (21.0-31.0) 02/11/18 07:17 Anion Gap 10.1 (7.0-16.0) 02/11/18 07:17 BUN 20 mg/dL (7-25) 02/11/18 07:17 Creatinine 0.9 mg/dL (0.6-1.2) 02/11/18 07:17 Est GFR ( Amer) TNP 02/11/18 07:17 Est GFR (Non-Af Amer) TNP 02/11/18 07:17 BUN/Creatinine Ratio 22.2 02/11/18 07:17 Glucose 213 mg/dL (70-105) H 02/11/18 07:17 POC Glucose 118 MG/DL (70 - 105) H 02/12/18 05:55 Hemoglobin A1c % 9.5 % (4.0-6.0) H 02/08/18 21:54 Calcium 9.2 mg/dL (8.6-10.3) 02/11/18 07:17 Total Bilirubin 0.7 mg/dL (0.3-1.0) 02/11/18 07:17 AST 12 U/L (13-39) L 02/11/18 07:17 ALT 9 U/L (7-52) 02/11/18 07:17 Alkaline Phosphatase 95 U/L (34-104) 02/11/18 07:17 Total Protein 6.9 gm/dL (6.0-8.3) 02/11/18 07:17 Albumin 3.6 gm/dL (3.7-5.3) L 02/11/18 07:17 Globulin 3.3 gm/dL 02/11/18 07:17 Albumin/Globulin Ratio 1.1 (1.0-1.8) 02/11/18 07:17 Triglycerides 107 mg/dL (<150) 02/08/18 21:54 Cholesterol 120 mg/dL (<200) 02/08/18 21:54 LDL Cholesterol Direct 68 mg/dL (75-193) L 02/08/18 21:54 HDL Cholesterol 34 mg/dL (23-92) 02/08/18 21:54 TSH 4.07 uIU/ml (0.34-5.60) 02/08/18 21:54 Salicylates < 25.0 mg/L (30.0-100.0) L 02/08/18 21:54 Acetaminophen < 10.0 ug/mL (10.0-30.0) L 02/08/18 21:54 Valproic Acid < 10.0 ug/mL (50.0-100.0) L 02/08/18 21:54 Ethyl Alcohol < 10 mg/dL (0-10) 02/08/18 21:54 RPR NONREACTIVE (NONREACTIVE) 02/08/18 21:54 - Physical Exam Vitals and I&O: Vital Signs Temp 97.9 F 02/11/18 20:10 Pulse 67 02/12/18 08:05 Resp 14 02/12/18 08:05 BP 107/66 02/11/18 20:10 Pulse Ox 97 02/12/18 08:05 Intake & Output 02/11/18 02/12/18 02/12/18 18:59 06:59 18:59 Intake Total 850 240 Balance 850 240 Intake: Oral 850 240 Other: # Voids 4 1 # Bowel Movements 1 Active Medications: Current Medications Acetaminophen (Tylenol) 650 mg PO Q4HR PRN PRN Reason: Mild Pain / Temp above 100 Stop: 04/10/18 01:56 Al Hydrox/Mg Hydrox/Simethicone (Maalox) 30 ml PO Q4HR PRN PRN Reason: GI DISTRESS Stop: 04/10/18 01:56 Last Admin: 02/10/18 12:08 Dose: 30 ml Aspirin (Aspirin Chewable) 81 mg PO DAILY [facility] Stop: 04/10/18 08:59 Last Admin: 02/11/18 10:37 Dose: 81 mg Atorvastatin Calcium (Lipitor) 40 mg PO HS [facility] PRN Reason: Protocol Stop: 04/10/18 20:59 Last Admin: 02/11/18 20:19 Dose: 40 mg Carvedilol (Coreg) 3.125 mg PO BID [facility] Stop: 04/10/18 08:59 Last Admin: 02/11/18 17:18 Dose: Not Given Diltiazem HCl (Cardizem) 30 mg PO BID [facility] Stop: 04/10/18 08:59 Last Admin: 02/11/18 17:18 Dose: Not Given Divalproex Sodium (Depakote Dr) 125 mg PO BID [facility] PRN Reason: Protocol Stop: 04/10/18 08:59 Last Admin: 02/11/18 17:19 Dose: 125 mg Docusate Sodium (Colace) 100 mg PO DAILY [facility] Stop: 04/10/18 08:59 Last Admin: 02/11/18 10:37 Dose: 100 mg Fish Oil ([place] 3) 1,000 mg PO BID [facility] Stop: 04/10/18 08:59 Last Admin: 02/11/18 17:19 Dose: 1,000 mg Folic Acid (Folate) 1 mg PO DAILY [facility] Stop: 04/10/18 08:59 Last Admin: 02/11/18 10:37 Dose: 1 mg Furosemide (Lasix) 20 mg PO DAILY [facility] Stop: 04/10/18 08:59 Last Admin: 02/11/18 10:41 Dose: 20 mg Gabapentin (Neurontin) 400 mg PO Q8H [facility] Stop: 04/10/18 01:59 Last Admin: 02/12/18 03:00 Dose: Not Given Insulin Aspart (Novolog Insulin Sliding Scale) 0 units SUBQ ACHS [facility] PRN Reason: Protocol Stop: 04/10/18 11:29 Last Admin: 02/12/18 06:34 Dose: Not Given Insulin Detemir (Levemir Insulin) 40 units SUBQ Q12HR [facility] PRN Reason: Protocol Stop: 04/10/18 08:59 Last Admin: 02/11/18 20:22 Dose: 40 units Ipratropium [place] (Atrovent Neb 0.5mg/2.5ml) 0.5 mg HHN Q6HRT PRN PRN Reason: Shortness of Breath Stop: 04/10/18 06:44 Lorazepam (Ativan) 0.5 mg PO Q6HR PRN; Protocol PRN Reason: Anxiety Stop: 03/11/18 01:56 Last Admin: 02/11/18 20:20 Dose: 0.5 mg Losartan Potassium (Cozaar) 50 mg PO DAILY [facility] Stop: 04/10/18 08:59 Last Admin: 02/11/18 10:40 Dose: 50 mg Magnesium Oxide (Mag-Oxide) 400 mg PO DAILY [facility] Stop: 04/10/18 08:59 Last Admin: 02/11/18 10:36 Dose: 400 mg Montelukast Sodium (Singulair) 10 mg PO HS [facility] Stop: 04/10/18 20:59 Last Admin: 02/11/18 20:20 Dose: 10 mg Oxycodone/Acetaminophen (Percocet 5/325mg Oral Tab) 1 tab PO Q6H PRN PRN Reason: moderate pain 4-6 Stop: 04/10/18 03:14 Pantoprazole Sodium (Protonix) 40 mg PO DAILY [facility] Stop: 04/10/18 08:59 Last Admin: 02/11/18 10:37 Dose: 40 mg Propafenone HCl (Rythmol) 225 mg PO Q8HR [facility] Stop: 04/10/18 12:59 Last Admin: 02/12/18 06:33 Dose: Not Given Quetiapine Fumarate (Seroquel) 50 mg PO BID [facility] PRN Reason: Protocol Stop: 04/10/18 08:59 Last Admin: 02/11/18 17:19 Dose: 50 mg Spironolactone (Aldactone) 25 mg PO DAILY [facility] Stop: 04/10/18 08:59 Last Admin: 02/11/18 10:41 Dose: 25 mg Zolpidem Tartrate (Ambien) 5 mg PO HS PRN PRN Reason: Insomnia Stop: 04/10/18 01:56 Last Admin: 02/11/18 20:20 Dose: 5 mg General: Alert, No acute distress HEENT: Atraumatic Neck: Supple Cardiovascular: Regular rate Lungs: Clear to auscultation Abdomen: Bowel sounds, Soft Extremities: Other (No edema) Neurological: Other (Unstable gait) Skin: Other (warm and dry) Psych/Mental Status: Other (Confused, not oriented) - Procedures Procedures: Procedures Procedure Code Date DRAINAGE OF RIGHT AXILLA, OPEN APPROACH [id number] 04/21/16 DRAINAGE OF SKIN ABSCESS 23593 04/21/16 OTHER GROUP THERAPY 94.44 05/27/15 Assessment/Plan - Assessment Assessment: Patient is awake, alert, confused, not oriented. Dx: Increased in agitation, schizophrenia, DM, CAD, A-fib, HTN - Plan Plan: Patient under psychiatric care, will continue with SNF meds.
--- NOTE | 2018-02-12 10:15 | Consultation ---
DATE OF CONSULTATION: 02/11/2018 REQUESTING PHYSICIAN: Adelso Aldana M.D. TYPE OF CONSULTATION: Psychology. HISTORY OF PRESENT ILLNESS: The patient is an 82-year-old female who is a resident of [facility]. The following is by review of the medical record and by the patient's self report. The patient is being admitted on a 5150 hold as being gravely disabled and a possible danger to others. According to record review, the patient has had previous psychiatric hospitalizations and this patient is also known to this senior mortgage underwriter from those previous hospitalizations. The patient presents as actively psychotic as well as screaming and yelling and striking out at staff members. The staff at the patient's facility corroborated this behavior and that the patient has been uncontrollable. The patient stated that she wanted to be discharged and to "get me out of here." The patient was unable to verbally contract for safety. The patient did not answer questions about suicidal ideation, plan or intention. PAST MEDICAL HISTORY: Please see history and physical by Dr. Ann. PAST PSYCHIATRIC HISTORY: The patient has had multiple previous hospitalizations and a long history of severe mental illness. The patient is under the care of a psychiatrist at [facility]. The patient is known to this senior mortgage underwriter from previous hospitalizations. SUBSTANCE ABUSE HISTORY: None. CURRENT MEDICATIONS: Please see admission medication reconciliation. PSYCHOSOCIAL HISTORY: The patient is a resident of [facility]. The patient did not answer questions about anglican affiliation or about any legal problems. The patient denies history of physical and sexual abuse. 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 The patient states that her many years ago and that she has 3 children. The patient stated that all of her family have been trying to kill her for no reason. MENTAL STATUS EXAMINATION: The patient appears to be her stated age. The patient's attitude is mostly uncooperative. Mood is irritable. Affect is constricted. The patient has had episodes of screaming and yelling and verbally abusive towards staff members on the unit thus far. The patient denied any auditory or visual hallucinations. Thought process shows to be perseverating and fixated on being discharged. The patient is verbalizing paranoid ideation and is guarded and resistant to the clinical interview questions. Impulse control is inadequate. Concentration is poor. The patient's immediate memory is intact. Short term memory is impaired. Long-term memory seems to be grossly intact. Sensorium is alert and oriented to person and place, but not date or time. The patient did not participate in the interpretation of proverbs. Insight is impaired. Judgment is impaired. DIAGNOSTIC IMPRESSION: AXIS I: Psychotic disorder, not otherwise specified. AXIS II: Deferred. AXIS III: Please see history and physical by Dr. Ann. PLAN: The patient has been seen by Dr. Aldana for psychiatric evaluation and for the management of the patient's psychotropic medications. The patient is being observed very closely. We will provide a simple de-escalation skill for the patient to respond to both cognitive and behavioral redirection while on the unit. We will provide limit setting regarding the patient's striking out behaviors. We will encourage the patient to verbalize her concerns versus acting out and striking out. We will provide reality orientation, reality integration, and reality differentiation. We will provide coping strategies for chronic long-term illness. We will encourage the patient through motivational enhancement to become compliant and stay compliant with all aspects of her care and treatment. According to Dr. Aldana, the patient is continued on valproic acid 120 mg twice a day and continued with Seroquel at 50 mg twice a day. We will encourage the patient to verbally contract for no self-harm or harm to others. Thank you, Dr. Aldana for this consult and the opportunity to participate with you in this patient's care. [facility]# [id number] HIRAM
[2018-02-12] MEDS: Aspirin 81mg Chewable Tab PO SCH (10:42)
[2018-02-12] MEDS: Insulin Detemir 100 units/mL 10mL Vial SUBQ SCH ×2 (10:43→21:05)
[2018-02-12] MEDS: Fish Oil 1,000 MG SGL PO SCH ×2 (10:45→17:13)
[2018-02-12] MEDS: Diltiazem 30 mg Tab PO SCH ×2 (10:45→17:15)
[2018-02-12] MEDS: Pantoprazole 40 mg EC Tab PO SCH (13:00)
--- NOTE | 2018-02-12 16:29 | Progress Notes ---
DATE: 02/12/2018 PSYCHIATRIC PROGRESS NOTE SUBJECTIVE: Staff was spoken to. The patient is interviewed. Mood is noted to be irritable. Affect is constricted. Coping skills are noted to be still poor. The patient has been having acute mood swings. Insight and judgment are also noted to be very much impaired. The patient has been currently on a low dose of the day valproic acid 125 mg, which is going to be increased to 250 mg twice a day and the patient is going to be closely monitored. The patient is also on low dose of Seroquel and has been able to tolerate the medication. ASSESSMENT: The patient is still having acute mood swings. PLAN: To continue the patient with the supportive therapy and continue the patient with a 250 mg twice a day of the Depakote and 50 mg twice a day of the Seroquel, and follow the patient up with the supportive therapy. JOB# [id number]
[2018-02-13] MEDS: INSULIN ASPART SLIDING SCALE 100 UNITS/ML UNIT SUBQ SCH ×2 (07:03→20:58)
[2018-02-13] MEDS: Insulin Detemir 100 units/mL 10mL Vial SUBQ SCH ×2 (08:54→21:04)
[2018-02-13] MEDS: Fish Oil 1,000 MG SGL PO SCH ×2 (09:53→17:14)
[2018-02-13] MEDS: Multivitamin w/ Minerals Tab PO SCH (09:53)
[2018-02-13] MEDS: Aspirin 81mg Chewable Tab PO SCH (09:55)
[2018-02-13] MEDS: Pantoprazole 40 mg EC Tab PO SCH (09:56)
[2018-02-13] MEDS: Diltiazem 30 mg Tab PO SCH ×2 (09:57→17:14)
--- NOTE | 2018-02-13 11:48 | General Progress Note ---
Subjective - Review of Systems Service Date: 02/13/18 Subjective: Confused Objective - Results Result Diagrams: 02/11/18 07:17 02/11/18 07:17 Recent Labs: Laboratory Last Values WBC 6.5 Th/cmm (4.8-10.8) 02/11/18 07:17 RBC 4.36 Mil/cmm (3.80-5.20) 02/11/18 07:17 Hgb 13.0 gm/dL (12-16) 02/11/18 07:17 Hct 38.0 % (41.0-60) L 02/11/18 07:17 MCV 87.2 fl (81-100) 02/11/18 07:17 MCH 29.7 pg (27.0-31.0) 02/11/18 07:17 MCHC Differential 34.0 pg (28.0-36.0) 02/11/18 07:17 RDW 13.2 % (11.5-20.0) 02/11/18 07:17 Plt Count 178 Th/cmm (150-400) 02/11/18 07:17 MPV 9.2 fl 02/11/18 07:17 Neutrophils % 57.8 % (40.0-80.0) 02/11/18 07:17 Lymphocytes % 23.9 % (20.0-50.0) 02/11/18 07:17 Monocytes % 10.7 % (2.0-10.0) H 02/11/18 07:17 Eosinophils % 7.0 % (0.0-5.0) H 02/11/18 07:17 Basophils % 0.6 % (0.0-2.0) 02/11/18 07:17 Sodium 136 mEq/L (136-145) 02/11/18 07:17 Potassium 3.4 mEq/L (3.5-5.1) L 02/11/18 07:17 Chloride 103 mEq/L (98-107) 02/11/18 07:17 Carbon Dioxide 26.3 mEq/L (21.0-31.0) 02/11/18 07:17 Anion Gap 10.1 (7.0-16.0) 02/11/18 07:17 BUN 20 mg/dL (7-25) 02/11/18 07:17 Creatinine 0.9 mg/dL (0.6-1.2) 02/11/18 07:17 Est GFR ( Amer) TNP 02/11/18 07:17 Est GFR (Non-Af Amer) TNP 02/11/18 07:17 BUN/Creatinine Ratio 22.2 02/11/18 07:17 Glucose 213 mg/dL (70-105) H 02/11/18 07:17 POC Glucose 191 MG/DL (70 - 105) H 02/13/18 06:59 Hemoglobin A1c % 9.5 % (4.0-6.0) H 02/08/18 21:54 Calcium 9.2 mg/dL (8.6-10.3) 02/11/18 07:17 Total Bilirubin 0.7 mg/dL (0.3-1.0) 02/11/18 07:17 AST 12 U/L (13-39) L 02/11/18 07:17 ALT 9 U/L (7-52) 02/11/18 07:17 Alkaline Phosphatase 95 U/L (34-104) 02/11/18 07:17 Total Protein 6.9 gm/dL (6.0-8.3) 02/11/18 07:17 Albumin 3.6 gm/dL (3.7-5.3) L 02/11/18 07:17 Globulin 3.3 gm/dL 02/11/18 07:17 Albumin/Globulin Ratio 1.1 (1.0-1.8) 02/11/18 07:17 Triglycerides 107 mg/dL (<150) 02/08/18 21:54 Cholesterol 120 mg/dL (<200) 02/08/18 21:54 LDL Cholesterol Direct 68 mg/dL (75-193) L 02/08/18 21:54 HDL Cholesterol 34 mg/dL (23-92) 02/08/18 21:54 TSH 4.07 uIU/ml (0.34-5.60) 02/08/18 21:54 Salicylates < 25.0 mg/L (30.0-100.0) L 02/08/18 21:54 Acetaminophen < 10.0 ug/mL (10.0-30.0) L 02/08/18 21:54 Valproic Acid < 10.0 ug/mL (50.0-100.0) L 02/08/18 21:54 Ethyl Alcohol < 10 mg/dL (0-10) 02/08/18 21:54 RPR NONREACTIVE (NONREACTIVE) 02/08/18 21:54 - Physical Exam Vitals and I&O: Vital Signs Temp 98 F 02/12/18 20:00 Pulse 82 02/13/18 09:57 Resp 14 02/13/18 07:27 BP 112/74 02/13/18 09:56 Pulse Ox 98 02/13/18 07:27 Intake & Output 02/12/18 02/13/18 02/13/18 18:59 06:59 18:59 Intake Total 480 120 Output Total 0 Balance 480 120 Intake: Oral 480 120 Output: Urine 0 Other: # Voids 3 Active Medications: Current Medications Acetaminophen (Tylenol) 650 mg PO Q4HR PRN PRN Reason: Mild Pain / Temp above 100 Stop: 04/10/18 01:56 Al Hydrox/Mg Hydrox/Simethicone (Maalox) 30 ml PO Q4HR PRN PRN Reason: GI DISTRESS Stop: 04/10/18 01:56 Last Admin: 02/10/18 12:08 Dose: 30 ml Aspirin (Aspirin Chewable) 81 mg PO DAILY [facility] Stop: 04/10/18 08:59 Last Admin: 02/13/18 09:55 Dose: 81 mg Atorvastatin Calcium (Lipitor) 40 mg PO HS [facility] PRN Reason: Protocol Stop: 04/10/18 20:59 Last Admin: 02/12/18 20:56 Dose: 40 mg Carvedilol (Coreg) 3.125 mg PO BID [facility] Stop: 04/10/18 08:59 Last Admin: 02/13/18 09:53 Dose: 3.125 mg Diltiazem HCl (Cardizem) 30 mg PO BID [facility] Stop: 04/10/18 08:59 Last Admin: 02/13/18 09:57 Dose: 30 mg Divalproex Sodium (Depakote Dr) 250 mg PO BID [facility] PRN Reason: Protocol Stop: 04/13/18 16:59 Last Admin: 02/13/18 09:53 Dose: 250 mg Docusate Sodium (Colace) 100 mg PO DAILY [facility] Stop: 04/10/18 08:59 Last Admin: 02/13/18 09:53 Dose: 100 mg Fish Oil ([place] 3) 1,000 mg PO BID [facility] Stop: 04/10/18 08:59 Last Admin: 02/13/18 09:53 Dose: 1,000 mg Folic Acid (Folate) 1 mg PO DAILY [facility] Stop: 04/10/18 08:59 Last Admin: 02/13/18 09:55 Dose: 1 mg Furosemide (Lasix) 20 mg PO DAILY [facility] Stop: 04/10/18 08:59 Last Admin: 02/13/18 09:54 Dose: 20 mg Gabapentin (Neurontin) 400 mg PO Q8H [facility] Stop: 04/14/18 05:59 Last Admin: 02/13/18 06:44 Dose: 400 mg Insulin Aspart (Novolog Insulin Sliding Scale) 0 units SUBQ ACHS [facility] PRN Reason: Protocol Stop: 04/10/18 11:29 Last Admin: 02/13/18 07:03 Dose: 2 units Insulin Detemir (Levemir Insulin) 40 units SUBQ Q12HR [facility] PRN Reason: Protocol Stop: 04/10/18 08:59 Last Admin: 02/12/18 21:05 Dose: 40 units Ipratropium [place] (Atrovent Neb 0.5mg/2.5ml) 0.5 mg HHN Q6HRT PRN PRN Reason: Shortness of Breath Stop: 04/10/18 06:44 Lorazepam (Ativan) 0.5 mg PO Q6HR PRN; Protocol PRN Reason: Anxiety Stop: 03/11/18 01:56 Last Admin: 02/12/18 20:57 Dose: 0.5 mg Losartan Potassium (Cozaar) 50 mg PO DAILY [facility] Stop: 04/10/18 08:59 Last Admin: 02/13/18 09:56 Dose: 50 mg Magnesium Oxide (Mag-Oxide) 400 mg PO DAILY [facility] Stop: 04/10/18 08:59 Last Admin: 02/13/18 09:56 Dose: 400 mg Montelukast Sodium (Singulair) 10 mg PO HS [facility] Stop: 04/10/18 20:59 Last Admin: 02/12/18 20:57 Dose: 10 mg Oxycodone/Acetaminophen (Percocet 5/325mg Oral Tab) 1 tab PO Q6H PRN PRN Reason: moderate pain 4-6 Stop: 04/10/18 03:14 Pantoprazole Sodium (Protonix) 40 mg PO DAILY [facility] Stop: 04/10/18 08:59 Last Admin: 02/13/18 09:56 Dose: 40 mg Propafenone HCl (Rythmol) 225 mg PO Q8HR [facility] Stop: 04/10/18 12:59 Last Admin: 02/13/18 06:00 Dose: 225 mg Quetiapine Fumarate (Seroquel) 50 mg PO BID [facility] PRN Reason: Protocol Stop: 04/10/18 08:59 Last Admin: 02/13/18 09:55 Dose: 50 mg Spironolactone (Aldactone) 25 mg PO DAILY [facility] Stop: 04/10/18 08:59 Last Admin: 02/13/18 09:56 Dose: 25 mg Zolpidem Tartrate (Ambien) 5 mg PO HS PRN PRN Reason: Insomnia Stop: 04/10/18 01:56 Last Admin: 02/12/18 20:57 Dose: 5 mg General: Alert, No acute distress HEENT: Atraumatic Neck: Supple Cardiovascular: Regular rate Lungs: Clear to auscultation Abdomen: Bowel sounds, Soft Extremities: Other (No edema) Neurological: Other (Unstable gait) Skin: Other (warm and dry) Psych/Mental Status: Other (Confused, not oriented) - Procedures Procedures: Procedures Procedure Code Date DRAINAGE OF RIGHT AXILLA, OPEN APPROACH [id number] 04/21/16 DRAINAGE OF SKIN ABSCESS 26359 04/21/16 OTHER GROUP THERAPY 94.44 05/27/15 Assessment/Plan - Assessment Assessment: Patient is awake, alert, confused, not oriented. Dx: Increased in agitation, schizophrenia, DM, CAD, A-fib, HTN. - Plan Plan: Patient under psychiatric care, will continue with SNF meds. Nutritional Asmnt/Malnutr-PDOC - Dietary Evaluation Malnutrition Findings (Please click <Entered> for more info): Nutritional Asmnt/Malnutrition Start: 02/12/18 14: 02 Text: Status: Active Freq: Document 02/12/18 14:02 BECKY (Rec: 02/12/18 14:12 [email or web address]) Nutritional Asmnt/Malnutrition Patient General Information Nutritional Screening Moderate Risk Diagnosis psychosis Pertinent Medical Hx/Surgical Hx CAD, CHF, HTN, psychosis, schizophrenia, DM, hypothyroidism Subjective Information Pt seen sitting up in bed having lunch, awake and alert. Pt reported good appetite and no known food allergy. Per EMR, PO intake 75-100%. Current Diet Order/ Nutrition Support cardiac Pertinent Medications colace, omega 3, folate, lasix , novolog, levemir, mag-oxide, protonix, seroquel Pertinent Labs 02/11 K 3.4, glucose 213, POC 98 -118 4/3 glucose 138, POC 152, A1c 9.5 Nutritional Hx/Data Height 1.73 m Height (Calculated Centimeters) 172.7 Current Weight (lbs) 95.254 kg Weight (Calculated Kilograms) 95.3 Weight (Calculated Grams) 31559.4 [place] Body Weight 140 Body Mass Index (BMI) 31.9 Weight Status Obese GI Symptoms GI Symptoms None Last BM 02/11 Difficult in: None Usual diet at home pt stated no diet restriction. But pt came from care facility noted from H&P. Skin Integrity/Comment: intact, dryness, bruises Current %PO Good (75-100%) Estimated Nutritional Goals BEE in Kcals: Adj wt of IBW Calories/Kcals/Kg 25-30 Kcals Calculated 6119-6846 Protein: Adj wt of IBW Protein g/k-1.2 Protein Calculated 72-86 Fluid: ml 1800-2160ml (1ml/kcal) Nutritional Problem 1. Problem Problem altered nutrition related lab values Etiology hx of DM Signs/Symptoms: glucose 138-213, POC 98-347, A1c 9.5 Malnutrition Alert Protein-Calorie Malnutrition N/A Is there a minimum of two criteria No selected? Query Text:Check all the applicable criteria. A minimum of two criteria are recommended for diagnosis of either severe or non-severe malnutrition. Intervention/Recommendation Comments 1. Recommend adding CCHO-60gm diet for better glycemic control. RN notified. Explained diabetic diet to pt and pt is willing to follow it . 2. Monitor PO intake, wt, labs and skin integrity 3. F/U as moderate risk in 3-5 days, 02/15-02/17 Expected Outcomes/Goals Expected Outcomes/Goals 1. PO intake to meet at least 75% of nutritional needs. 2. Wt stability, skin to remain intact, labs to approach WNL.
--- NOTE | 2018-02-13 17:06 | Progress Notes ---
DATE: 02/13/2018 SUBJECTIVE: Staff was spoken to. The patient is interviewed. Mood is noted to be irritable. Affect is constricted. Mood swings are still a problem. The patient tends to scream and yell and the patient's coping skills are noted to be poor. Sleep is noted to be improving. Appetite is noted to be fair at this time. No side effects to the medications are noted. ASSESSMENT: The patient is still having confusion and mood swings. PLAN: To continue the patient with the current medications and follow. JOB# [id number]
[2018-02-14] MEDS: INSULIN ASPART SLIDING SCALE 100 UNITS/ML UNIT SUBQ SCH ×4 (06:34→21:21)
--- NOTE | 2018-02-14 08:47 | General Progress Note ---
Subjective - Review of Systems Service Date: 02/14/18 Subjective: Confused Objective - Results Result Diagrams: 02/11/18 07:17 02/11/18 07:17 Recent Labs: Laboratory Last Values WBC 6.5 Th/cmm (4.8-10.8) 02/11/18 07:17 RBC 4.36 Mil/cmm (3.80-5.20) 02/11/18 07:17 Hgb 13.0 gm/dL (12-16) 02/11/18 07:17 Hct 38.0 % (41.0-60) L 02/11/18 07:17 MCV 87.2 fl (81-100) 02/11/18 07:17 MCH 29.7 pg (27.0-31.0) 02/11/18 07:17 MCHC Differential 34.0 pg (28.0-36.0) 02/11/18 07:17 RDW 13.2 % (11.5-20.0) 02/11/18 07:17 Plt Count 178 Th/cmm (150-400) 02/11/18 07:17 MPV 9.2 fl 02/11/18 07:17 Neutrophils % 57.8 % (40.0-80.0) 02/11/18 07:17 Lymphocytes % 23.9 % (20.0-50.0) 02/11/18 07:17 Monocytes % 10.7 % (2.0-10.0) H 02/11/18 07:17 Eosinophils % 7.0 % (0.0-5.0) H 02/11/18 07:17 Basophils % 0.6 % (0.0-2.0) 02/11/18 07:17 Sodium 136 mEq/L (136-145) 02/11/18 07:17 Potassium 3.4 mEq/L (3.5-5.1) L 02/11/18 07:17 Chloride 103 mEq/L (98-107) 02/11/18 07:17 Carbon Dioxide 26.3 mEq/L (21.0-31.0) 02/11/18 07:17 Anion Gap 10.1 (7.0-16.0) 02/11/18 07:17 BUN 20 mg/dL (7-25) 02/11/18 07:17 Creatinine 0.9 mg/dL (0.6-1.2) 02/11/18 07:17 Est GFR ( Amer) TNP 02/11/18 07:17 Est GFR (Non-Af Amer) TNP 02/11/18 07:17 BUN/Creatinine Ratio 22.2 02/11/18 07:17 Glucose 213 mg/dL (70-105) H 02/11/18 07:17 POC Glucose 222 MG/DL (70-105) H 02/14/18 05:59 Hemoglobin A1c % 9.5 % (4.0-6.0) H 02/08/18 21:54 Calcium 9.2 mg/dL (8.6-10.3) 02/11/18 07:17 Total Bilirubin 0.7 mg/dL (0.3-1.0) 02/11/18 07:17 AST 12 U/L (13-39) L 02/11/18 07:17 ALT 9 U/L (7-52) 02/11/18 07:17 Alkaline Phosphatase 95 U/L (34-104) 02/11/18 07:17 Total Protein 6.9 gm/dL (6.0-8.3) 02/11/18 07:17 Albumin 3.6 gm/dL (3.7-5.3) L 02/11/18 07:17 Globulin 3.3 gm/dL 02/11/18 07:17 Albumin/Globulin Ratio 1.1 (1.0-1.8) 02/11/18 07:17 Triglycerides 107 mg/dL (<150) 02/08/18 21:54 Cholesterol 120 mg/dL (<200) 02/08/18 21:54 LDL Cholesterol Direct 68 mg/dL (75-193) L 02/08/18 21:54 HDL Cholesterol 34 mg/dL (23-92) 02/08/18 21:54 TSH 4.07 uIU/ml (0.34-5.60) 02/08/18 21:54 Salicylates < 25.0 mg/L (30.0-100.0) L 02/08/18 21:54 Acetaminophen < 10.0 ug/mL (10.0-30.0) L 02/08/18 21:54 Valproic Acid < 10.0 ug/mL (50.0-100.0) L 02/08/18 21:54 Ethyl Alcohol < 10 mg/dL (0-10) 02/08/18 21:54 RPR NONREACTIVE (NONREACTIVE) 02/08/18 21:54 - Physical Exam Vitals and I&O: Vital Signs Temp 96.8 F 02/14/18 06:24 Pulse 75 02/14/18 08:38 Resp 16 02/14/18 08:38 BP 132/61 02/14/18 06:24 Pulse Ox 96 02/14/18 08:38 Intake & Output 02/13/18 02/14/18 02/14/18 18:59 06:59 18:59 Intake Total 240 Balance 240 Weight (lbs) 95.254 kg Intake: Oral 240 Other: # Voids 3 # Bowel Movements 0 Weight Source Bedscale Active Medications: Current Medications Acetaminophen (Tylenol) 650 mg PO Q4HR PRN PRN Reason: Mild Pain / Temp above 100 Stop: 04/10/18 01:56 Al Hydrox/Mg Hydrox/Simethicone (Maalox) 30 ml PO Q4HR PRN PRN Reason: GI DISTRESS Stop: 04/10/18 01:56 Last Admin: 02/10/18 12:08 Dose: 30 ml Aspirin (Aspirin Chewable) 81 mg PO DAILY [facility] Stop: 04/10/18 08:59 Last Admin: 02/13/18 09:55 Dose: 81 mg Atorvastatin Calcium (Lipitor) 40 mg PO HS [facility] PRN Reason: Protocol Stop: 04/10/18 20:59 Last Admin: 02/13/18 20:59 Dose: 40 mg Carvedilol (Coreg) 3.125 mg PO BID [facility] Stop: 04/10/18 08:59 Last Admin: 02/13/18 17:16 Dose: 3.125 mg Diltiazem HCl (Cardizem) 30 mg PO BID [facility] Stop: 04/10/18 08:59 Last Admin: 02/13/18 17:14 Dose: 30 mg Divalproex Sodium (Depakote Dr) 250 mg PO BID [facility] PRN Reason: Protocol Stop: 04/13/18 16:59 Last Admin: 02/13/18 17:16 Dose: 250 mg Docusate Sodium (Colace) 100 mg PO DAILY [facility] Stop: 04/10/18 08:59 Last Admin: 02/13/18 09:53 Dose: 100 mg Fish Oil ([place] 3) 1,000 mg PO BID [facility] Stop: 04/10/18 08:59 Last Admin: 02/13/18 17:14 Dose: 1,000 mg Folic Acid (Folate) 1 mg PO DAILY [facility] Stop: 04/10/18 08:59 Last Admin: 02/13/18 09:55 Dose: 1 mg Furosemide (Lasix) 20 mg PO DAILY [facility] Stop: 04/10/18 08:59 Last Admin: 02/13/18 09:54 Dose: 20 mg Gabapentin (Neurontin) 400 mg PO Q8H [facility] Stop: 04/14/18 05:59 Last Admin: 02/14/18 05:13 Dose: Not Given Insulin Aspart (Novolog Insulin Sliding Scale) 0 units SUBQ ACHS [facility] PRN Reason: Protocol Stop: 04/10/18 11:29 Last Admin: 02/14/18 06:34 Dose: Not Given Insulin Detemir (Levemir Insulin) 40 units SUBQ Q12HR [facility] PRN Reason: Protocol Stop: 04/10/18 08:59 Last Admin: 02/13/18 21:04 Dose: 40 units Ipratropium [place] (Atrovent Neb 0.5mg/2.5ml) 0.5 mg HHN Q6HRT PRN PRN Reason: Shortness of Breath Stop: 04/10/18 06:44 Lorazepam (Ativan) 0.5 mg PO Q6HR PRN; Protocol PRN Reason: Anxiety Stop: 03/11/18 01:56 Last Admin: 02/13/18 21:02 Dose: 0.5 mg Losartan Potassium (Cozaar) 50 mg PO DAILY [facility] Stop: 04/10/18 08:59 Last Admin: 02/13/18 09:56 Dose: 50 mg Magnesium Oxide (Mag-Oxide) 400 mg PO DAILY [facility] Stop: 04/10/18 08:59 Last Admin: 02/13/18 09:56 Dose: 400 mg Montelukast Sodium (Singulair) 10 mg PO HS [facility] Stop: 04/10/18 20:59 Last Admin: 02/13/18 20:59 Dose: 10 mg Oxycodone/Acetaminophen (Percocet 5/325mg Oral Tab) 1 tab PO Q6H PRN PRN Reason: moderate pain 4-6 Stop: 04/10/18 03:14 Pantoprazole Sodium (Protonix) 40 mg PO DAILY [facility] Stop: 04/10/18 08:59 Last Admin: 02/13/18 09:56 Dose: 40 mg Propafenone HCl (Rythmol) 225 mg PO Q8HR [facility] Stop: 04/10/18 12:59 Last Admin: 02/14/18 05:12 Dose: Not Given Quetiapine Fumarate (Seroquel) 50 mg PO BID [facility] PRN Reason: Protocol Stop: 04/10/18 08:59 Last Admin: 02/13/18 17:15 Dose: 50 mg Spironolactone (Aldactone) 25 mg PO DAILY [facility] Stop: 04/10/18 08:59 Last Admin: 02/13/18 09:56 Dose: 25 mg Zolpidem Tartrate (Ambien) 5 mg PO HS PRN PRN Reason: Insomnia Stop: 04/10/18 01:56 Last Admin: 02/13/18 21:02 Dose: 5 mg General: Alert, No acute distress HEENT: Atraumatic Neck: Supple Cardiovascular: Regular rate Lungs: Clear to auscultation Abdomen: Bowel sounds, Soft Extremities: Other (No edema) Neurological: Other (Unstable gait) Skin: Other (warm and dry) Psych/Mental Status: Other (Confused, not oriented) - Procedures Procedures: Procedures Procedure Code Date DRAINAGE OF RIGHT AXILLA, OPEN APPROACH [id number] 04/21/16 DRAINAGE OF SKIN ABSCESS 75122 04/21/16 OTHER GROUP THERAPY 94.44 05/27/15 Assessment/Plan - Assessment Assessment: Patient is awake, alert, confused, not oriented. Dx: Increased in agitation, schizophrenia, DM, CAD, A-fib, HTN. - Plan Plan: Patient under psychiatric care, will continue with SNF meds. Nutritional Asmnt/Malnutr-PDOC - Dietary Evaluation Malnutrition Findings (Please click <Entered> for more info): Nutritional Asmnt/Malnutrition Start: 02/12/18 14: 02 Text: Status: Active Freq: Document 02/12/18 14:02 BECKY (Rec: 02/12/18 14:12 [email or web address]) Nutritional Asmnt/Malnutrition Patient General Information Nutritional Screening Moderate Risk Diagnosis psychosis Pertinent Medical Hx/Surgical Hx CAD, CHF, HTN, psychosis, schizophrenia, DM, hypothyroidism Subjective Information Pt seen sitting up in bed having lunch, awake and alert. Pt reported good appetite and no known food allergy. Per EMR, PO intake 75-100%. Current Diet Order/ Nutrition Support cardiac Pertinent Medications colace, omega 3, folate, lasix , novolog, levemir, mag-oxide, protonix, seroquel Pertinent Labs 02/11 K 3.4, glucose 213, POC 98 -118 4/ glucose 138, POC 152, A1c 9.5 Nutritional Hx/Data Height 1.73 m Height (Calculated Centimeters) 172.7 Current Weight (lbs) 95.254 kg Weight (Calculated Kilograms) 95.3 Weight (Calculated Grams) 49014.4 [place] Body Weight 140 Body Mass Index (BMI) 31.9 Weight Status Obese GI Symptoms GI Symptoms None Last BM / Difficult in: None Usual diet at home pt stated no diet restriction. But pt came from care facility noted from H&P. Skin Integrity/Comment: intact, dryness, bruises Current %PO Good (75-100%) Estimated Nutritional Goals BEE in Kcals: Adj wt of IBW Calories/Kcals/Kg 25-30 Kcals Calculated 4733-3824 Protein: Adj wt of IBW Protein g/k-1.2 Protein Calculated 72-86 Fluid: ml 1800-2160ml (1ml/kcal) Nutritional Problem 1. Problem Problem altered nutrition related lab values Etiology hx of DM Signs/Symptoms: glucose 138-213, POC 98-347, A1c 9.5 Malnutrition Alert Protein-Calorie Malnutrition N/A Is there a minimum of two criteria No selected? Query Text:Check all the applicable criteria. A minimum of two criteria are recommended for diagnosis of either severe or non-severe malnutrition. Intervention/Recommendation Comments 1. Recommend adding CCHO-60gm diet for better glycemic control. RN notified. Explained diabetic diet to pt and pt is willing to follow it . 2. Monitor PO intake, wt, labs and skin integrity 3. F/U as moderate risk in 3-5 days, 02/15-02/17 Expected Outcomes/Goals Expected Outcomes/Goals 1. PO intake to meet at least 75% of nutritional needs. 2. Wt stability, skin to remain intact, labs to approach WNL.
[2018-02-14] MEDS: Fish Oil 1,000 MG SGL PO SCH ×2 (08:51→16:28)
[2018-02-14] MEDS: Pantoprazole 40 mg EC Tab PO SCH (08:51)
[2018-02-14] MEDS: Aspirin 81mg Chewable Tab PO SCH (08:51)
[2018-02-14] MEDS: Multivitamin w/ Minerals Tab PO SCH (08:54)
[2018-02-14] MEDS: Insulin Detemir 100 units/mL 10mL Vial SUBQ SCH ×2 (08:56→21:24)
[2018-02-14] MEDS: Diltiazem 30 mg Tab PO SCH ×2 (08:56→17:07)
--- NOTE | 2018-02-15 01:58 | Progress Notes ---
DATE: 02/14/2018 SUBJECTIVE: Staff was spoken to. The patient is interviewed. Mood is noted to be anxious. The patient is isolative and withdrawn today. The patient's insight and judgment are noted to be still impaired. Impulse control is noted to be poor. Screaming and yelling still continues. Also, the effect of the medications are noted. Mood swings are noted, but the patient is very quiet today. Paranoia is noted, but no command hallucinations are reported. ASSESSMENT: The patient is still impulsive and having mood swings. PLAN: To continue the patient with the supportive therapy. I encouraged the patient to verbalize the concerns rather than to act out. JOB# [id number]
[2018-02-15] MEDS: INSULIN ASPART SLIDING SCALE 100 UNITS/ML UNIT SUBQ SCH ×5 (06:42→20:50)
--- NOTE | 2018-02-15 08:38 | General Progress Note ---
Subjective - Review of Systems Service Date: 02/15/18 Subjective: Confused Objective - Results Result Diagrams: 02/11/18 07:17 02/11/18 07:17 Recent Labs: Laboratory Last Values WBC 6.5 Th/cmm (4.8-10.8) 02/11/18 07:17 RBC 4.36 Mil/cmm (3.80-5.20) 02/11/18 07:17 Hgb 13.0 gm/dL (12-16) 02/11/18 07:17 Hct 38.0 % (41.0-60) L 02/11/18 07:17 MCV 87.2 fl (81-100) 02/11/18 07:17 MCH 29.7 pg (27.0-31.0) 02/11/18 07:17 MCHC Differential 34.0 pg (28.0-36.0) 02/11/18 07:17 RDW 13.2 % (11.5-20.0) 02/11/18 07:17 Plt Count 178 Th/cmm (150-400) 02/11/18 07:17 MPV 9.2 fl 02/11/18 07:17 Neutrophils % 57.8 % (40.0-80.0) 02/11/18 07:17 Lymphocytes % 23.9 % (20.0-50.0) 02/11/18 07:17 Monocytes % 10.7 % (2.0-10.0) H 02/11/18 07:17 Eosinophils % 7.0 % (0.0-5.0) H 02/11/18 07:17 Basophils % 0.6 % (0.0-2.0) 02/11/18 07:17 Sodium 136 mEq/L (136-145) 02/11/18 07:17 Potassium 3.4 mEq/L (3.5-5.1) L 02/11/18 07:17 Chloride 103 mEq/L (98-107) 02/11/18 07:17 Carbon Dioxide 26.3 mEq/L (21.0-31.0) 02/11/18 07:17 Anion Gap 10.1 (7.0-16.0) 02/11/18 07:17 BUN 20 mg/dL (7-25) 02/11/18 07:17 Creatinine 0.9 mg/dL (0.6-1.2) 02/11/18 07:17 Est GFR ( Amer) TNP 02/11/18 07:17 Est GFR (Non-Af Amer) TNP 02/11/18 07:17 BUN/Creatinine Ratio 22.2 02/11/18 07:17 Glucose 213 mg/dL (70-105) H 02/11/18 07:17 POC Glucose 198 MG/DL (70 - 105) H 02/15/18 06:39 Hemoglobin A1c % 9.5 % (4.0-6.0) H 02/08/18 21:54 Calcium 9.2 mg/dL (8.6-10.3) 02/11/18 07:17 Total Bilirubin 0.7 mg/dL (0.3-1.0) 02/11/18 07:17 AST 12 U/L (13-39) L 02/11/18 07:17 ALT 9 U/L (7-52) 02/11/18 07:17 Alkaline Phosphatase 95 U/L (34-104) 02/11/18 07:17 Total Protein 6.9 gm/dL (6.0-8.3) 02/11/18 07:17 Albumin 3.6 gm/dL (3.7-5.3) L 02/11/18 07:17 Globulin 3.3 gm/dL 02/11/18 07:17 Albumin/Globulin Ratio 1.1 (1.0-1.8) 02/11/18 07:17 Triglycerides 107 mg/dL (<150) 02/08/18 21:54 Cholesterol 120 mg/dL (<200) 02/08/18 21:54 LDL Cholesterol Direct 68 mg/dL (75-193) L 02/08/18 21:54 HDL Cholesterol 34 mg/dL (23-92) 02/08/18 21:54 TSH 4.07 uIU/ml (0.34-5.60) 02/08/18 21:54 Salicylates < 25.0 mg/L (30.0-100.0) L 02/08/18 21:54 Acetaminophen < 10.0 ug/mL (10.0-30.0) L 02/08/18 21:54 Valproic Acid < 10.0 ug/mL (50.0-100.0) L 02/08/18 21:54 Ethyl Alcohol < 10 mg/dL (0-10) 02/08/18 21:54 RPR NONREACTIVE (NONREACTIVE) 02/08/18 21:54 - Physical Exam Vitals and I&O: Vital Signs Temp 96.9 F 02/15/18 06:20 Pulse 72 02/15/18 06:20 Resp 18 02/15/18 06:20 BP 123/56 02/15/18 06:20 Pulse Ox 98 02/15/18 06:20 Intake & Output 02/14/18 02/15/18 02/15/18 18:59 06:59 18:59 Intake Total 800 120 Balance 800 120 Weight (lbs) 95.254 kg Intake: Oral 800 120 Other: # Voids 4 3 # Bowel Movements 1 0 Weight Source Bedscale Active Medications: Current Medications Acetaminophen (Tylenol) 650 mg PO Q4HR PRN PRN Reason: Mild Pain / Temp above 100 Stop: 04/10/18 01:56 Al Hydrox/Mg Hydrox/Simethicone (Maalox) 30 ml PO Q4HR PRN PRN Reason: GI DISTRESS Stop: 04/10/18 01:56 Last Admin: 02/10/18 12:08 Dose: 30 ml Aspirin (Aspirin Chewable) 81 mg PO DAILY [facility] Stop: 04/10/18 08:59 Last Admin: 02/14/18 08:51 Dose: 81 mg Atorvastatin Calcium (Lipitor) 40 mg PO HS [facility] PRN Reason: Protocol Stop: 04/10/18 20:59 Last Admin: 02/14/18 21:14 Dose: 40 mg Carvedilol (Coreg) 3.125 mg PO BID [facility] Stop: 04/10/18 08:59 Last Admin: 02/14/18 16:27 Dose: 3.125 mg Diltiazem HCl (Cardizem) 30 mg PO BID [facility] Stop: 04/10/18 08:59 Last Admin: 02/14/18 17:07 Dose: Not Given Divalproex Sodium (Depakote Dr) 250 mg PO BID [facility] PRN Reason: Protocol Stop: 04/13/18 16:59 Last Admin: 02/14/18 16:28 Dose: 250 mg Docusate Sodium (Colace) 100 mg PO DAILY [facility] Stop: 04/10/18 08:59 Last Admin: 02/14/18 08:51 Dose: 100 mg Fish Oil (Backus 3) 1,000 mg PO BID [facility] Stop: 04/10/18 08:59 Last Admin: 02/14/18 16:28 Dose: 1,000 mg Folic Acid (Folate) 1 mg PO DAILY [facility] Stop: 04/10/18 08:59 Last Admin: 02/14/18 08:52 Dose: 1 mg Furosemide (Lasix) 20 mg PO DAILY [facility] Stop: 04/10/18 08:59 Last Admin: 02/14/18 08:54 Dose: 20 mg Gabapentin (Neurontin) 400 mg PO Q8H [facility] Stop: 04/14/18 05:59 Last Admin: 02/15/18 06:11 Dose: 400 mg Insulin Aspart (Novolog Insulin Sliding Scale) 0 units SUBQ ACHS [facility] PRN Reason: Protocol Stop: 04/10/18 11:29 Last Admin: 02/15/18 06:42 Dose: 2 units Insulin Detemir (Levemir Insulin) 40 units SUBQ Q12HR [facility] PRN Reason: Protocol Stop: 04/10/18 08:59 Last Admin: 02/14/18 21:24 Dose: 40 units Ipratropium [place] (Atrovent Neb 0.5mg/2.5ml) 0.5 mg HHN Q6HRT PRN PRN Reason: Shortness of Breath Stop: 04/10/18 06:44 Lorazepam (Ativan) 0.5 mg PO Q6HR PRN; Protocol PRN Reason: Anxiety Stop: 03/11/18 01:56 Last Admin: 02/14/18 21:42 Dose: 0.5 mg Losartan Potassium (Cozaar) 50 mg PO DAILY [facility] Stop: 04/10/18 08:59 Last Admin: 02/14/18 08:55 Dose: 50 mg Magnesium Oxide (Mag-Oxide) 400 mg PO DAILY [facility] Stop: 04/10/18 08:59 Last Admin: 02/14/18 08:52 Dose: 400 mg Montelukast Sodium (Singulair) 10 mg PO HS [facility] Stop: 04/10/18 20:59 Last Admin: 02/14/18 21:15 Dose: 10 mg Oxycodone/Acetaminophen (Percocet 5/325mg Oral Tab) 1 tab PO Q6H PRN PRN Reason: moderate pain 4-6 Stop: 04/10/18 03:14 Pantoprazole Sodium (Protonix) 40 mg PO DAILY [facility] Stop: 04/10/18 08:59 Last Admin: 02/14/18 08:51 Dose: 40 mg Propafenone HCl (Rythmol) 225 mg PO Q8HR [facility] Stop: 04/10/18 12:59 Last Admin: 02/15/18 04:11 Dose: 225 mg Quetiapine Fumarate (Seroquel) 50 mg PO BID [facility] PRN Reason: Protocol Stop: 04/10/18 08:59 Last Admin: 02/14/18 16:28 Dose: 50 mg Spironolactone (Aldactone) 25 mg PO DAILY [facility] Stop: 04/10/18 08:59 Last Admin: 02/14/18 08:55 Dose: 25 mg Zolpidem Tartrate (Ambien) 5 mg PO HS PRN PRN Reason: Insomnia Stop: 04/10/18 01:56 Last Admin: 02/14/18 21:16 Dose: 5 mg General: Alert, No acute distress HEENT: Atraumatic Neck: Supple Cardiovascular: Regular rate Lungs: Clear to auscultation Abdomen: Bowel sounds, Soft Extremities: Other (No edema) Neurological: Other (Unstable gait) Skin: Other (warm and dry) Psych/Mental Status: Other (Confused, not oriented) - Procedures Procedures: Procedures Procedure Code Date DRAINAGE OF RIGHT AXILLA, OPEN APPROACH [id number] 04/21/16 DRAINAGE OF SKIN ABSCESS 72587 04/21/16 OTHER GROUP THERAPY 94.44 05/27/15 Assessment/Plan - Assessment Assessment: Patient is awake, alert, confused, not oriented. Dx: Increased in agitation, schizophrenia, DM, CAD, A-fib, HTN. - Plan Plan: Patient under psychiatric care, will continue with SNF meds. Nutritional Asmnt/Malnutr-PDOC - Dietary Evaluation Malnutrition Findings (Please click <Entered> for more info): Nutritional Asmnt/Malnutrition Start: 02/12/18 14: 02 Text: Status: Active Freq: Document 02/12/18 14:02 [email or web address] (Rec: 02/12/18 14:12 [email or web address] Nutritional Asmnt/Malnutrition Patient General Information Nutritional Screening Moderate Risk Diagnosis psychosis Pertinent Medical Hx/Surgical Hx CAD, CHF, HTN, psychosis, schizophrenia, DM, hypothyroidism Subjective Information Pt seen sitting up in bed having lunch, awake and alert. Pt reported good appetite and no known food allergy. Per EMR, PO intake 75-100%. Current Diet Order/ Nutrition Support cardiac Pertinent Medications colace, omega 3, folate, lasix , novolog, levemir, mag-oxide, protonix, seroquel Pertinent Labs 02/11 K 3.4, glucose 213, POC 98 -118 02/08 glucose 138, POC 152, A1c 9.5 Nutritional Hx/Data Height 1.73 m Height (Calculated Centimeters) 172.7 Current Weight (lbs) 95.254 kg Weight (Calculated Kilograms) 95.3 Weight (Calculated Grams) 60837.4 [place] Body Weight 140 Body Mass Index (BMI) 31.9 Weight Status Obese GI Symptoms GI Symptoms None Last BM 02/11 Difficult in: None Usual diet at home pt stated no diet restriction. But pt came from care facility noted from H&P. Skin Integrity/Comment: intact, dryness, bruises Current %PO Good (75-100%) Estimated Nutritional Goals BEE in Kcals: Adj wt of IBW Calories/Kcals/Kg 25-30 Kcals Calculated 3883-9224 Protein: Adj wt of IBW Protein g/k-1.2 Protein Calculated 72-86 Fluid: ml 1800-2160ml (1ml/kcal) Nutritional Problem 1. Problem Problem altered nutrition related lab values Etiology hx of DM Signs/Symptoms: glucose 138-213, POC 98-347, A1c 9.5 Malnutrition Alert Protein-Calorie Malnutrition N/A Is there a minimum of two criteria No selected? Query Text:Check all the applicable criteria. A minimum of two criteria are recommended for diagnosis of either severe or non-severe malnutrition. Intervention/Recommendation Comments 1. Recommend adding CCHO-60gm diet for better glycemic control. RN notified. Explained diabetic diet to pt and pt is willing to follow it . 2. Monitor PO intake, wt, labs and skin integrity 3. F/U as moderate risk in 3-5 days, 02/15-02/17 Expected Outcomes/Goals Expected Outcomes/Goals 1. PO intake to meet at least 75% of nutritional needs. 2. Wt stability, skin to remain intact, labs to approach WNL.
[2018-02-15] MEDS: Fish Oil 1,000 MG SGL PO SCH ×2 (08:48→16:46)
[2018-02-15] MEDS: Multivitamin w/ Minerals Tab PO SCH (08:49)
[2018-02-15] MEDS: Pantoprazole 40 mg EC Tab PO SCH (08:49)
[2018-02-15] MEDS: Aspirin 81mg Chewable Tab PO SCH (08:51)
[2018-02-15] MEDS: Diltiazem 30 mg Tab PO SCH ×2 (08:54→16:48)
[2018-02-15] MEDS: Insulin Detemir 100 units/mL 10mL Vial SUBQ SCH ×2 (08:56→20:51)
--- NOTE | 2018-02-15 20:48 | Progress Notes ---
DATE: 02/15/2018 SUBJECTIVE: Staff was spoken to. The patient is interviewed. Mood is noted to be irritable. Affect is constricted. Insight and judgment are noted to be still impaired. Coping skills are noted to be poor. The patient has been having difficult time to cope with the stress. No side effects to the medications are noted. The patient is isolative and withdrawn. The patient does not want to be bothered for most of the time. The patient gets frustrated when asked a question. The patient has been having acute mood swings and paranoia. The patient has been currently on 250 mg twice a day of the Depakote and is also on 50 mg twice a day of the Seroquel. PLAN: To continue the patient with the supportive therapy. I encouraged the patient to verbalize the concerns rather than to act out. JOB# [id number]
[2018-02-16] MEDS: INSULIN ASPART SLIDING SCALE 100 UNITS/ML UNIT SUBQ SCH ×5 (06:39→20:42)
[2018-02-16] MEDS: Insulin Detemir 100 units/mL 10mL Vial SUBQ SCH ×2 (08:49→20:51)
[2018-02-16] MEDS: Fish Oil 1,000 MG SGL PO SCH ×2 (08:53→16:27)
[2018-02-16] MEDS: Multivitamin w/ Minerals Tab PO SCH (08:53)
[2018-02-16] MEDS: Aspirin 81mg Chewable Tab PO SCH (08:55)
[2018-02-16] MEDS: APAP/Oxycodone 5/325mg Oral Tab PO PRN ×2 (08:56→20:12)
[2018-02-16] MEDS: Pantoprazole 40 mg EC Tab PO SCH (08:56)
--- NOTE | 2018-02-16 09:11 | General Progress Note ---
Subjective - Review of Systems Service Date: 02/16/18 Subjective: Confused Objective - Results Result Diagrams: 02/11/18 07:17 02/11/18 07:17 Recent Labs: Laboratory Last Values WBC 6.5 Th/cmm (4.8-10.8) 02/11/18 07:17 RBC 4.36 Mil/cmm (3.80-5.20) 02/11/18 07:17 Hgb 13.0 gm/dL (12-16) 02/11/18 07:17 Hct 38.0 % (41.0-60) L 02/11/18 07:17 MCV 87.2 fl (81-100) 02/11/18 07:17 MCH 29.7 pg (27.0-31.0) 02/11/18 07:17 MCHC Differential 34.0 pg (28.0-36.0) 02/11/18 07:17 RDW 13.2 % (11.5-20.0) 02/11/18 07:17 Plt Count 178 Th/cmm (150-400) 02/11/18 07:17 MPV 9.2 fl 02/11/18 07:17 Neutrophils % 57.8 % (40.0-80.0) 02/11/18 07:17 Lymphocytes % 23.9 % (20.0-50.0) 02/11/18 07:17 Monocytes % 10.7 % (2.0-10.0) H 02/11/18 07:17 Eosinophils % 7.0 % (0.0-5.0) H 02/11/18 07:17 Basophils % 0.6 % (0.0-2.0) 02/11/18 07:17 Sodium 136 mEq/L (136-145) 02/11/18 07:17 Potassium 3.4 mEq/L (3.5-5.1) L 02/11/18 07:17 Chloride 103 mEq/L (98-107) 02/11/18 07:17 Carbon Dioxide 26.3 mEq/L (21.0-31.0) 02/11/18 07:17 Anion Gap 10.1 (7.0-16.0) 02/11/18 07:17 BUN 20 mg/dL (7-25) 02/11/18 07:17 Creatinine 0.9 mg/dL (0.6-1.2) 02/11/18 07:17 Est GFR ( Amer) TNP 02/11/18 07:17 Est GFR (Non-Af Amer) TNP 02/11/18 07:17 BUN/Creatinine Ratio 22.2 02/11/18 07:17 Glucose 213 mg/dL (70-105) H 02/11/18 07:17 POC Glucose 142 MG/DL (70 - 105) H 02/16/18 05:44 Hemoglobin A1c % 9.5 % (4.0-6.0) H 02/08/18 21:54 Calcium 9.2 mg/dL (8.6-10.3) 02/11/18 07:17 Total Bilirubin 0.7 mg/dL (0.3-1.0) 02/11/18 07:17 AST 12 U/L (13-39) L 02/11/18 07:17 ALT 9 U/L (7-52) 02/11/18 07:17 Alkaline Phosphatase 95 U/L (34-104) 02/11/18 07:17 Total Protein 6.9 gm/dL (6.0-8.3) 02/11/18 07:17 Albumin 3.6 gm/dL (3.7-5.3) L 02/11/18 07:17 Globulin 3.3 gm/dL 02/11/18 07:17 Albumin/Globulin Ratio 1.1 (1.0-1.8) 02/11/18 07:17 Triglycerides 107 mg/dL (<150) 02/08/18 21:54 Cholesterol 120 mg/dL (<200) 02/08/18 21:54 LDL Cholesterol Direct 68 mg/dL (75-193) L 02/08/18 21:54 HDL Cholesterol 34 mg/dL (23-92) 02/08/18 21:54 TSH 4.07 uIU/ml (0.34-5.60) 02/08/18 21:54 Salicylates < 25.0 mg/L (30.0-100.0) L 02/08/18 21:54 Acetaminophen < 10.0 ug/mL (10.0-30.0) L 02/08/18 21:54 Valproic Acid < 10.0 ug/mL (50.0-100.0) L 02/08/18 21:54 Ethyl Alcohol < 10 mg/dL (0-10) 02/08/18 21:54 RPR NONREACTIVE (NONREACTIVE) 02/08/18 21:54 - Physical Exam Vitals and I&O: Vital Signs Temp 96.9 F 02/16/18 06:11 Pulse 60 02/16/18 08:55 Resp 18 02/16/18 07:51 BP 132/69 02/16/18 08:55 Pulse Ox 96 02/16/18 07:51 Intake & Output 02/15/18 02/16/18 02/16/18 18:59 06:59 18:59 Intake Total 800 420 Balance 800 420 Intake: Oral 800 420 Other: # Voids 3 2 # Bowel Movements 1 1 Active Medications: Current Medications Acetaminophen (Tylenol) 650 mg PO Q4HR PRN PRN Reason: Mild Pain / Temp above 100 Stop: 04/10/18 01:56 Al Hydrox/Mg Hydrox/Simethicone (Maalox) 30 ml PO Q4HR PRN PRN Reason: GI DISTRESS Stop: 04/10/18 01:56 Last Admin: 02/10/18 12:08 Dose: 30 ml Aspirin (Aspirin Chewable) 81 mg PO DAILY [facility] Stop: 04/10/18 08:59 Last Admin: 02/16/18 08:55 Dose: 81 mg Atorvastatin Calcium (Lipitor) 40 mg PO HS [facility] PRN Reason: Protocol Stop: 04/10/18 20:59 Last Admin: 02/15/18 20:51 Dose: 40 mg Carvedilol (Coreg) 3.125 mg PO BID [facility] Stop: 04/10/18 08:59 Last Admin: 02/16/18 08:55 Dose: 3.125 mg Diltiazem HCl (Cardizem) 30 mg PO BID [facility] Stop: 04/10/18 08:59 Last Admin: 02/15/18 16:48 Dose: 30 mg Divalproex Sodium (Depakote Dr) 250 mg PO BID [facility] PRN Reason: Protocol Stop: 04/13/18 16:59 Last Admin: 02/16/18 08:55 Dose: 250 mg Docusate Sodium (Colace) 100 mg PO DAILY [facility] Stop: 04/10/18 08:59 Last Admin: 02/16/18 08:56 Dose: 100 mg Fish Oil ([place] 3) 1,000 mg PO BID [facility] Stop: 04/10/18 08:59 Last Admin: 02/16/18 08:53 Dose: 1,000 mg Folic Acid (Folate) 1 mg PO DAILY [facility] Stop: 04/10/18 08:59 Last Admin: 02/16/18 08:56 Dose: 1 mg Furosemide (Lasix) 20 mg PO DAILY [facility] Stop: 04/10/18 08:59 Last Admin: 02/16/18 08:53 Dose: 20 mg Gabapentin (Neurontin) 400 mg PO Q8H [facility] Stop: 04/14/18 05:59 Last Admin: 02/16/18 06:39 Dose: 400 mg Insulin Aspart (Novolog Insulin Sliding Scale) 0 units SUBQ ACHS [facility] PRN Reason: Protocol Stop: 04/10/18 11:29 Last Admin: 02/16/18 06:39 Dose: Not Given Insulin Detemir (Levemir Insulin) 40 units SUBQ Q12HR [facility] PRN Reason: Protocol Stop: 04/10/18 08:59 Last Admin: 02/16/18 08:49 Dose: 40 units Ipratropium [place] (Atrovent Neb 0.5mg/2.5ml) 0.5 mg HHN Q6HRT PRN PRN Reason: Shortness of Breath Stop: 04/10/18 06:44 Lorazepam (Ativan) 0.5 mg PO Q6HR PRN; Protocol PRN Reason: Anxiety Stop: 03/11/18 01:56 Last Admin: 02/15/18 20:53 Dose: 0.5 mg Losartan Potassium (Cozaar) 50 mg PO DAILY [facility] Stop: 04/10/18 08:59 Last Admin: 02/16/18 08:53 Dose: 50 mg Magnesium Oxide (Mag-Oxide) 400 mg PO DAILY [facility] Stop: 04/10/18 08:59 Last Admin: 02/15/18 08:52 Dose: 400 mg Montelukast Sodium (Singulair) 10 mg PO HS [facility] Stop: 04/10/18 20:59 Last Admin: 02/15/18 20:51 Dose: 10 mg Oxycodone/Acetaminophen (Percocet 5/325mg Oral Tab) 1 tab PO Q6H PRN PRN Reason: moderate pain 4-6 Stop: 04/10/18 03:14 Last Admin: 02/16/18 08:56 Dose: 1 tab Pantoprazole Sodium (Protonix) 40 mg PO DAILY [facility] Stop: 04/10/18 08:59 Last Admin: 02/16/18 08:56 Dose: 40 mg Propafenone HCl (Rythmol) 225 mg PO Q8HR [facility] Stop: 04/10/18 12:59 Last Admin: 02/16/18 05:32 Dose: Not Given Quetiapine Fumarate (Seroquel) 50 mg PO BID [facility] Stop: 04/16/18 16:59 Last Admin: 02/16/18 08:53 Dose: 50 mg Spironolactone (Aldactone) 25 mg PO DAILY [facility] Stop: 04/10/18 08:59 Last Admin: 02/16/18 08:55 Dose: 25 mg Zolpidem Tartrate (Ambien) 5 mg PO HS PRN PRN Reason: Insomnia Stop: 04/10/18 01:56 Last Admin: 02/14/18 21:16 Dose: 5 mg General: Alert, No acute distress HEENT: Atraumatic Neck: Supple Cardiovascular: Regular rate Lungs: Clear to auscultation Abdomen: Bowel sounds, Soft Extremities: Other (No edema) Neurological: Other (Unstable gait) Skin: Other (warm and dry) Psych/Mental Status: Other (Confused, not oriented) - Procedures Procedures: Procedures Procedure Code Date DRAINAGE OF RIGHT AXILLA, OPEN APPROACH [id number] 04/21/16 DRAINAGE OF SKIN ABSCESS 62029 04/21/16 OTHER GROUP THERAPY 94.44 05/27/15 Assessment/Plan - Assessment Assessment: Patient is awake, alert, confused, not oriented. Dx: Increased in agitation, schizophrenia, DM, CAD, A-fib, HTN. - Plan Plan: Patient under psychiatric care, will continue with SNF meds. Nutritional Asmnt/Malnutr-PDOC - Dietary Evaluation Malnutrition Findings (Please click <Entered> for more info): Nutritional Asmnt/Malnutrition Start: 02/12/18 14: 02 Text: Status: Active Freq: Document 02/12/18 14:02 [email or web address] (Rec: 02/12/18 14:12 [email or web address]) Nutritional Asmnt/Malnutrition Patient General Information Nutritional Screening Moderate Risk Diagnosis psychosis Pertinent Medical Hx/Surgical Hx CAD, CHF, HTN, psychosis, schizophrenia, DM, hypothyroidism Subjective Information Pt seen sitting up in bed having lunch, awake and alert. Pt reported good appetite and no known food allergy. Per EMR, PO intake 75-100%. Current Diet Order/ Nutrition Support cardiac Pertinent Medications colace, omega 3, folate, lasix , novolog, levemir, mag-oxide, protonix, seroquel Pertinent Labs 02/11 K 3.4, glucose 213, POC 98 -118 02/08 glucose 138, POC 152, A1c 9.5 Nutritional Hx/Data Height 1.73 m Height (Calculated Centimeters) 172.7 Current Weight (lbs) 95.254 kg Weight (Calculated Kilograms) 95.3 Weight (Calculated Grams) 93029.4 [place] Body Weight 140 Body Mass Index (BMI) 31.9 Weight Status Obese GI Symptoms GI Symptoms None Last BM 02/11 Difficult in: None Usual diet at home pt stated no diet restriction. But pt came from care facility noted from H&P. Skin Integrity/Comment: intact, dryness, bruises Current %PO Good (75-100%) Estimated Nutritional Goals BEE in Kcals: Adj wt of IBW Calories/Kcals/Kg 25-30 Kcals Calculated 2764-1036 Protein: Adj wt of IBW Protein g/k-1.2 Protein Calculated 72-86 Fluid: ml 1800-2160ml (1ml/kcal) Nutritional Problem 1. Problem Problem altered nutrition related lab values Etiology hx of DM Signs/Symptoms: glucose 138-213, POC 98-347, A1c 9.5 Malnutrition Alert Protein-Calorie Malnutrition N/A Is there a minimum of two criteria No selected? Query Text:Check all the applicable criteria. A minimum of two criteria are recommended for diagnosis of either severe or non-severe malnutrition. Intervention/Recommendation Comments 1. Recommend adding CCHO-60gm diet for better glycemic control. RN notified. Explained diabetic diet to pt and pt is willing to follow it . 2. Monitor PO intake, wt, labs and skin integrity 3. F/U as moderate risk in 3-5 days, 02/15-02/17 Expected Outcomes/Goals Expected Outcomes/Goals 1. PO intake to meet at least 75% of nutritional needs. 2. Wt stability, skin to remain intact, labs to approach WNL.
[2018-02-16] MEDS: Diltiazem 30 mg Tab PO SCH ×2 (10:39→16:28)
--- NOTE | 2018-02-17 05:13 | Progress Notes ---
DATE: 02/16/2018 SUBJECTIVE: Staff was spoken to. The patient is interviewed. Mood is noted to be irritable. Affect is constricted. The patient is still having difficult time to cope with the stress. The patient is currently on 250 mg of the Depakote and 50 mg twice a day of the Seroquel and has been able to tolerate the medications. No side effects to the medications are noted. ASSESSMENT: The patient has mood swings that is the major concern at this time. PLAN: To continue the patient with supportive therapy. I encouraged the patient to verbalize the concerns rather than to act out. JOB# [id number]
[2018-02-17] MEDS: INSULIN ASPART SLIDING SCALE 100 UNITS/ML UNIT SUBQ SCH ×4 (06:37→21:53)
[2018-02-17] MEDS: Insulin Detemir 100 units/mL 10mL Vial SUBQ SCH ×2 (10:06→21:55)
[2018-02-17] MEDS: Fish Oil 1,000 MG SGL PO SCH ×2 (10:07→16:56)
[2018-02-17] MEDS: Multivitamin w/ Minerals Tab PO SCH (10:09)
[2018-02-17] MEDS: Aspirin 81mg Chewable Tab PO SCH (10:09)
[2018-02-17] MEDS: Pantoprazole 40 mg EC Tab PO SCH (10:09)
[2018-02-17] MEDS: Diltiazem 30 mg Tab PO SCH ×2 (10:10→16:58)
--- NOTE | 2018-02-17 14:34 | General Progress Note ---
Subjective - Review of Systems Service Date: 02/17/18 Subjective: Confused Objective - Results Result Diagrams: 02/11/18 07:17 02/11/18 07:17 Recent Labs: Laboratory Last Values WBC 6.5 Th/cmm (4.8-10.8) 02/11/18 07:17 RBC 4.36 Mil/cmm (3.80-5.20) 02/11/18 07:17 Hgb 13.0 gm/dL (12-16) 02/11/18 07:17 Hct 38.0 % (41.0-60) L 02/11/18 07:17 MCV 87.2 fl (81-100) 02/11/18 07:17 MCH 29.7 pg (27.0-31.0) 02/11/18 07:17 MCHC Differential 34.0 pg (28.0-36.0) 02/11/18 07:17 RDW 13.2 % (11.5-20.0) 02/11/18 07:17 Plt Count 178 Th/cmm (150-400) 02/11/18 07:17 MPV 9.2 fl 02/11/18 07:17 Neutrophils % 57.8 % (40.0-80.0) 02/11/18 07:17 Lymphocytes % 23.9 % (20.0-50.0) 02/11/18 07:17 Monocytes % 10.7 % (2.0-10.0) H 02/11/18 07:17 Eosinophils % 7.0 % (0.0-5.0) H 02/11/18 07:17 Basophils % 0.6 % (0.0-2.0) 02/11/18 07:17 Sodium 136 mEq/L (136-145) 02/11/18 07:17 Potassium 3.4 mEq/L (3.5-5.1) L 02/11/18 07:17 Chloride 103 mEq/L (98-107) 02/11/18 07:17 Carbon Dioxide 26.3 mEq/L (21.0-31.0) 02/11/18 07:17 Anion Gap 10.1 (7.0-16.0) 02/11/18 07:17 BUN 20 mg/dL (7-25) 02/11/18 07:17 Creatinine 0.9 mg/dL (0.6-1.2) 02/11/18 07:17 Est GFR ( Amer) TNP 02/11/18 07:17 Est GFR (Non-Af Amer) TNP 02/11/18 07:17 BUN/Creatinine Ratio 22.2 02/11/18 07:17 Glucose 213 mg/dL (70-105) H 02/11/18 07:17 POC Glucose 219 MG/DL (70 - 105) H 02/16/18 11:14 Hemoglobin A1c % 9.5 % (4.0-6.0) H 02/08/18 21:54 Calcium 9.2 mg/dL (8.6-10.3) 02/11/18 07:17 Total Bilirubin 0.7 mg/dL (0.3-1.0) 02/11/18 07:17 AST 12 U/L (13-39) L 02/11/18 07:17 ALT 9 U/L (7-52) 02/11/18 07:17 Alkaline Phosphatase 95 U/L (34-104) 02/11/18 07:17 Total Protein 6.9 gm/dL (6.0-8.3) 02/11/18 07:17 Albumin 3.6 gm/dL (3.7-5.3) L 02/11/18 07:17 Globulin 3.3 gm/dL 02/11/18 07:17 Albumin/Globulin Ratio 1.1 (1.0-1.8) 02/11/18 07:17 Triglycerides 107 mg/dL (<150) 02/08/18 21:54 Cholesterol 120 mg/dL (<200) 02/08/18 21:54 LDL Cholesterol Direct 68 mg/dL (75-193) L 02/08/18 21:54 HDL Cholesterol 34 mg/dL (23-92) 02/08/18 21:54 TSH 4.07 uIU/ml (0.34-5.60) 02/08/18 21:54 Salicylates < 25.0 mg/L (30.0-100.0) L 02/08/18 21:54 Acetaminophen < 10.0 ug/mL (10.0-30.0) L 02/08/18 21:54 Valproic Acid < 10.0 ug/mL (50.0-100.0) L 02/08/18 21:54 Ethyl Alcohol < 10 mg/dL (0-10) 02/08/18 21:54 RPR NONREACTIVE (NONREACTIVE) 02/08/18 21:54 - Physical Exam Vitals and I&O: Vital Signs Temp 98.4 F 02/17/18 06:50 Pulse 67 02/17/18 13:54 Resp 18 02/17/18 07:43 BP 120/69 02/17/18 10:09 Pulse Ox 96 02/17/18 07:43 Intake & Output 02/16/18 02/17/18 02/17/18 18:59 06:59 18:59 Intake Total 800 120 Balance 800 120 Intake: Oral 800 120 Other: # Voids 2 3 Active Medications: Current Medications Acetaminophen (Tylenol) 650 mg PO Q4HR PRN PRN Reason: Mild Pain / Temp above 100 Stop: 04/10/18 01:56 Al Hydrox/Mg Hydrox/Simethicone (Maalox) 30 ml PO Q4HR PRN PRN Reason: GI DISTRESS Stop: 04/10/18 01:56 Last Admin: 02/10/18 12:08 Dose: 30 ml Aspirin (Aspirin Chewable) 81 mg PO DAILY [facility] Stop: 04/10/18 08:59 Last Admin: 02/17/18 10:09 Dose: 81 mg Atorvastatin Calcium (Lipitor) 40 mg PO HS JAYDEN PRN Reason: Protocol Stop: 04/10/18 20:59 Last Admin: 02/16/18 20:11 Dose: 40 mg Carvedilol (Coreg) 3.125 mg PO BID JAYDEN Stop: 04/10/18 08:59 Last Admin: 02/17/18 10:08 Dose: 3.125 mg Diltiazem HCl (Cardizem) 30 mg PO BID JAYDEN Stop: 04/10/18 08:59 Last Admin: 02/17/18 10:10 Dose: 30 mg Divalproex Sodium (Depakote Dr) 250 mg PO BID [facility] PRN Reason: Protocol Stop: 04/13/18 16:59 Last Admin: 02/17/18 10:09 Dose: 250 mg Docusate Sodium (Colace) 100 mg PO DAILY JAYDEN Stop: 04/10/18 08:59 Last Admin: 02/17/18 10:08 Dose: 100 mg Fish Oil ([place] 3) 1,000 mg PO BID JAYDEN Stop: 04/10/18 08:59 Last Admin: 02/17/18 10:07 Dose: 1,000 mg Folic Acid (Folate) 1 mg PO DAILY JAYDEN Stop: 04/10/18 08:59 Last Admin: 02/17/18 10:08 Dose: 1 mg Furosemide (Lasix) 20 mg PO DAILY J[facility]DEN Stop: 04/10/18 08:59 Last Admin: 02/17/18 10:08 Dose: 20 mg Gabapentin (Neurontin) 400 mg PO Q8H JAYDEN Stop: 04/14/18 05:59 Last Admin: 02/17/18 14:02 Dose: 400 mg Insulin Aspart (Novolog Insulin Sliding Scale) 0 units SUBQ ACHS JAYDEN PRN Reason: Protocol Stop: 04/10/18 11:29 Last Admin: 02/17/18 11:36 Dose: 2 units Insulin Detemir (Levemir Insulin) 40 units SUBQ Q12HR JAYDEN PRN Reason: Protocol Stop: 04/10/18 08:59 Last Admin: 02/17/18 10:06 Dose: 40 units Ipratropium [place] (Atrovent Neb 0.5mg/2.5ml) 0.5 mg HHN Q6HRT PRN PRN Reason: Shortness of Breath Stop: 04/10/18 06:44 Lorazepam (Ativan) 0.5 mg PO Q6HR PRN; Protocol PRN Reason: Anxiety Stop: 03/11/18 01:56 Last Admin: 02/16/18 20:11 Dose: 0.5 mg Losartan Potassium (Cozaar) 50 mg PO DAILY JAYDEN Stop: 04/10/18 08:59 Last Admin: 02/17/18 10:07 Dose: 50 mg Magnesium Oxide (Mag-Oxide) 400 mg PO DAILY [facility]AYDEN Stop: 04/10/18 08:59 Last Admin: 02/17/18 10:08 Dose: 400 mg Montelukast Sodium (Singulair) 10 mg PO HS JAYDEN Stop: 04/10/18 20:59 Last Admin: 02/16/18 20:11 Dose: 10 mg Oxycodone/Acetaminophen (Percocet 5/325mg Oral Tab) 1 tab PO Q6H PRN PRN Reason: moderate pain 4-6 Stop: 04/10/18 03:14 Last Admin: 02/16/18 20:12 Dose: 1 tab Pantoprazole Sodium (Protonix) 40 mg PO DAILY [facility] Stop: 04/10/18 08:59 Last Admin: 02/17/18 10:09 Dose: 40 mg Propafenone HCl (Rythmol) 225 mg PO Q8HR [facility] Stop: 04/10/18 12:59 Last Admin: 02/17/18 13:54 Dose: 225 mg Quetiapine Fumarate (Seroquel) 50 mg PO BID [facility] Stop: 04/16/18 16:59 Last Admin: 02/17/18 10:09 Dose: 50 mg Spironolactone (Aldactone) 25 mg PO DAILY [facility] Stop: 04/10/18 08:59 Last Admin: 02/17/18 10:09 Dose: 25 mg Zolpidem Tartrate (Ambien) 5 mg PO HS PRN PRN Reason: Insomnia Stop: 04/10/18 01:56 Last Admin: 02/16/18 21:00 Dose: 5 mg General: Alert, No acute distress HEENT: Atraumatic Neck: Supple Cardiovascular: Regular rate Lungs: Clear to auscultation Abdomen: Bowel sounds, Soft Extremities: Other (No edema) Neurological: Other (Unstable gait) Skin: Other (warm and dry) Psych/Mental Status: Other (Confused, not oriented) - Procedures Procedures: Procedures Procedure Code Date DRAINAGE OF RIGHT AXILLA, OPEN APPROACH [id number] 04/21/16 DRAINAGE OF SKIN ABSCESS 82274 04/21/16 OTHER GROUP THERAPY 94.44 05/27/15 Assessment/Plan - Assessment Assessment: Patient is awake, alert, confused, not oriented. Dx: Increased in agitation, schizophrenia, DM, CAD, A-fib, HTN. - Plan Plan: Patient under psychiatric care, will continue with SNF meds. Nutritional Asmnt/Malnutr-PDOC - Dietary Evaluation Malnutrition Findings (Please click <Entered> for more info): Nutritional Asmnt/Malnutrition Start: 02/12/18 14: 02 Text: Status: Active Freq: Document 02/12/18 14:02 BECKY (Rec: 02/12/18 14:12 [email or web address]) Nutritional Asmnt/Malnutrition Patient General Information Nutritional Screening Moderate Risk Diagnosis psychosis Pertinent Medical Hx/Surgical Hx CAD, CHF, HTN, psychosis, schizophrenia, DM, hypothyroidism Subjective Information Pt seen sitting up in bed having lunch, awake and alert. Pt reported good appetite and no known food allergy. Per EMR, PO intake 75-100%. Current Diet Order/ Nutrition Support cardiac Pertinent Medications colace, omega 3, folate, lasix , novolog, levemir, mag-oxide, protonix, seroquel Pertinent Labs 02/11 K 3.4, glucose 213, POC 98 -118 4/ glucose 138, POC 152, A1c 9.5 Nutritional Hx/Data Height 1.73 m Height (Calculated Centimeters) 172.7 Current Weight (lbs) 95.254 kg Weight (Calculated Kilograms) 95.3 Weight (Calculated Grams) 40136.4 [place] Body Weight 140 Body Mass Index (BMI) 31.9 Weight Status Obese GI Symptoms GI Symptoms None Last BM 02/11 Difficult in: None Usual diet at home pt stated no diet restriction. But pt came from care facility noted from H&P. Skin Integrity/Comment: intact, dryness, bruises Current %PO Good (75-100%) Estimated Nutritional Goals BEE in Kcals: Adj wt of IBW Calories/Kcals/Kg 25-30 Kcals Calculated 2581-8721 Protein: Adj wt of IBW Protein g/k-1.2 Protein Calculated 72-86 Fluid: ml 1800-2160ml (1ml/kcal) Nutritional Problem 1. Problem Problem altered nutrition related lab values Etiology hx of DM Signs/Symptoms: glucose 138-213, POC 98-347, A1c 9.5 Malnutrition Alert Protein-Calorie Malnutrition N/A Is there a minimum of two criteria No selected? Query Text:Check all the applicable criteria. A minimum of two criteria are recommended for diagnosis of either severe or non-severe malnutrition. Intervention/Recommendation Comments 1. Recommend adding CCHO-60gm diet for better glycemic control. RN notified. Explained diabetic diet to pt and pt is willing to follow it . 2. Monitor PO intake, wt, labs and skin integrity 3. F/U as moderate risk in 3-5 days, 02/15-02/17 Expected Outcomes/Goals Expected Outcomes/Goals 1. PO intake to meet at least 75% of nutritional needs. 2. Wt stability, skin to remain intact, labs to approach WNL.
--- NOTE | 2018-02-17 23:35 | Progress Notes ---
DATE: 02/17/2018 SUBJECTIVE: Staff was spoken to. The patient is interviewed. Mood is noted to be irritable. Affect is constricted. The patient's coping skills are noted to be poor. Sleep and appetite are also noted to be poor today. The patient is reported to have been screaming and yelling yesterday, but this morning, the patient has been able to verbalize concerns. The patient is currently on Seroquel 100 mg b.i.d. and has been also getting the valproic acid 250 mg twice a day. No side effects to the medications are noted. ASSESSMENT: The patient is stabilizing. PLAN: To continue the patient with the supportive therapy. Encouraged the patient to verbalize the concerns rather than to act out. [facility]# [id number]
[2018-02-18] MEDS: INSULIN ASPART SLIDING SCALE 100 UNITS/ML UNIT SUBQ SCH ×4 (06:43→21:04)
--- NOTE | 2018-02-18 09:04 | General Progress Note ---
Subjective - Review of Systems Service Date: 02/18/18 Subjective: I have pain in my toe. Objective - Results Result Diagrams: 02/11/18 07:17 02/11/18 07:17 Recent Labs: Laboratory Last Values WBC 6.5 Th/cmm (4.8-10.8) 02/11/18 07:17 RBC 4.36 Mil/cmm (3.80-5.20) 02/11/18 07:17 Hgb 13.0 gm/dL (12-16) 02/11/18 07:17 Hct 38.0 % (41.0-60) L 02/11/18 07:17 MCV 87.2 fl (81-100) 02/11/18 07:17 MCH 29.7 pg (27.0-31.0) 02/11/18 07:17 MCHC Differential 34.0 pg (28.0-36.0) 02/11/18 07:17 RDW 13.2 % (11.5-20.0) 02/11/18 07:17 Plt Count 178 Th/cmm (150-400) 02/11/18 07:17 MPV 9.2 fl 02/11/18 07:17 Neutrophils % 57.8 % (40.0-80.0) 02/11/18 07:17 Lymphocytes % 23.9 % (20.0-50.0) 02/11/18 07:17 Monocytes % 10.7 % (2.0-10.0) H 02/11/18 07:17 Eosinophils % 7.0 % (0.0-5.0) H 02/11/18 07:17 Basophils % 0.6 % (0.0-2.0) 02/11/18 07:17 Sodium 136 mEq/L (136-145) 02/11/18 07:17 Potassium 3.4 mEq/L (3.5-5.1) L 02/11/18 07:17 Chloride 103 mEq/L (98-107) 02/11/18 07:17 Carbon Dioxide 26.3 mEq/L (21.0-31.0) 02/11/18 07:17 Anion Gap 10.1 (7.0-16.0) 02/11/18 07:17 BUN 20 mg/dL (7-25) 02/11/18 07:17 Creatinine 0.9 mg/dL (0.6-1.2) 02/11/18 07:17 Est GFR ( Amer) TNP 02/11/18 07:17 Est GFR (Non-Af Amer) TNP 02/11/18 07:17 BUN/Creatinine Ratio 22.2 02/11/18 07:17 Glucose 213 mg/dL (70-105) H 02/11/18 07:17 POC Glucose 219 MG/DL (70 - 105) H 02/16/18 11:14 Hemoglobin A1c % 9.5 % (4.0-6.0) H 02/08/18 21:54 Calcium 9.2 mg/dL (8.6-10.3) 02/11/18 07:17 Total Bilirubin 0.7 mg/dL (0.3-1.0) 02/11/18 07:17 AST 12 U/L (13-39) L 02/11/18 07:17 ALT 9 U/L (7-52) 02/11/18 07:17 Alkaline Phosphatase 95 U/L (34-104) 02/11/18 07:17 Total Protein 6.9 gm/dL (6.0-8.3) 02/11/18 07:17 Albumin 3.6 gm/dL (3.7-5.3) L 02/11/18 07:17 Globulin 3.3 gm/dL 02/11/18 07:17 Albumin/Globulin Ratio 1.1 (1.0-1.8) 02/11/18 07:17 Triglycerides 107 mg/dL (<150) 02/08/18 21:54 Cholesterol 120 mg/dL (<200) 02/08/18 21:54 LDL Cholesterol Direct 68 mg/dL (75-193) L 02/08/18 21:54 HDL Cholesterol 34 mg/dL (23-92) 02/08/18 21:54 TSH 4.07 uIU/ml (0.34-5.60) 02/08/18 21:54 Salicylates < 25.0 mg/L (30.0-100.0) L 02/08/18 21:54 Acetaminophen < 10.0 ug/mL (10.0-30.0) L 02/08/18 21:54 Valproic Acid < 10.0 ug/mL (50.0-100.0) L 02/08/18 21:54 Ethyl Alcohol < 10 mg/dL (0-10) 02/08/18 21:54 RPR NONREACTIVE (NONREACTIVE) 02/08/18 21:54 - Physical Exam Vitals and I&O: Vital Signs Temp 97.7 F 02/18/18 07:32 Pulse 69 02/18/18 07:54 Resp 18 02/18/18 07:54 BP 107/65 02/18/18 07:32 Pulse Ox 98 02/18/18 07:54 Intake & Output 02/17/18 02/18/18 02/18/18 18:59 06:59 18:59 Intake Total 1600 240 Balance 1600 240 Intake: Oral 1600 240 Other: # Voids 4 2 # Bowel Movements 1 0 Active Medications: Current Medications Acetaminophen (Tylenol) 650 mg PO Q4HR PRN PRN Reason: Mild Pain / Temp above 100 Stop: 04/10/18 01:56 Al Hydrox/Mg Hydrox/Simethicone (Maalox) 30 ml PO Q4HR PRN PRN Reason: GI DISTRESS Stop: 04/10/18 01:56 Last Admin: 02/10/18 12:08 Dose: 30 ml Aspirin (Aspirin Chewable) 81 mg PO DAILY [facility] Stop: 04/10/18 08:59 Last Admin: 02/17/18 10:09 Dose: 81 mg Atorvastatin Calcium (Lipitor) 40 mg PO HS JAYDEN PRN Reason: Protocol Stop: 04/10/18 20:59 Last Admin: 02/17/18 21:16 Dose: 40 mg Carvedilol (Coreg) 3.125 mg PO BID [facility] Stop: 04/10/18 08:59 Last Admin: 02/17/18 16:57 Dose: Not Given Diltiazem HCl (Cardizem) 30 mg PO BID [facility] Stop: 04/10/18 08:59 Last Admin: 02/17/18 16:58 Dose: 30 mg Divalproex Sodium (Depakote Dr) 250 mg PO BID [facility] PRN Reason: Protocol Stop: 04/13/18 16:59 Last Admin: 02/17/18 16:56 Dose: 250 mg Docusate Sodium (Colace) 100 mg PO DAILY [facility] Stop: 04/10/18 08:59 Last Admin: 02/17/18 10:08 Dose: 100 mg Fish Oil ([place] 3) 1,000 mg PO BID [facility] Stop: 04/10/18 08:59 Last Admin: 02/17/18 16:56 Dose: 1,000 mg Folic Acid (Folate) 1 mg PO DAILY [facility] Stop: 04/10/18 08:59 Last Admin: 02/17/18 10:08 Dose: 1 mg Furosemide (Lasix) 20 mg PO DAILY [facility] Stop: 04/10/18 08:59 Last Admin: 02/17/18 10:08 Dose: 20 mg Gabapentin (Neurontin) 400 mg PO Q8H JAYDEN Stop: 04/14/18 05:59 Last Admin: 02/18/18 06:24 Dose: 400 mg Insulin Aspart (Novolog Insulin Sliding Scale) 0 units SUBQ ACHS JAYDEN PRN Reason: Protocol Stop: 04/10/18 11:29 Last Admin: 02/18/18 06:43 Dose: 2 units Insulin Detemir (Levemir Insulin) 40 units SUBQ Q12HR JAYDEN PRN Reason: Protocol Stop: 04/10/18 08:59 Last Admin: 02/17/18 21:55 Dose: 40 units Ipratropium [place] (Atrovent Neb 0.5mg/2.5ml) 0.5 mg HHN Q6HRT PRN PRN Reason: Shortness of Breath Stop: 04/10/18 06:44 Lorazepam (Ativan) 0.5 mg PO Q6HR PRN; Protocol PRN Reason: Anxiety Stop: 03/11/18 01:56 Last Admin: 02/16/18 20:11 Dose: 0.5 mg Losartan Potassium (Cozaar) 50 mg PO DAILY [facility] Stop: 04/10/18 08:59 Last Admin: 02/17/18 10:07 Dose: 50 mg Magnesium Oxide (Mag-Oxide) 400 mg PO DAILY [facility] Stop: 04/10/18 08:59 Last Admin: 02/17/18 10:08 Dose: 400 mg Montelukast Sodium (Singulair) 10 mg PO HS [facility] Stop: 04/10/18 20:59 Last Admin: 02/17/18 21:16 Dose: 10 mg Oxycodone/Acetaminophen (Percocet 5/325mg Oral Tab) 1 tab PO Q6H PRN PRN Reason: moderate pain 4-6 Stop: 04/10/18 03:14 Last Admin: 02/16/18 20:12 Dose: 1 tab Pantoprazole Sodium (Protonix) 40 mg PO DAILY [facility] Stop: 04/10/18 08:59 Last Admin: 02/17/18 10:09 Dose: 40 mg Propafenone HCl (Rythmol) 225 mg PO Q8HR [facility] Stop: 04/10/18 12:59 Last Admin: 02/18/18 06:00 Dose: 225 mg Quetiapine Fumarate (Seroquel) 50 mg PO BID JAYDEN Stop: 04/16/18 16:59 Last Admin: 02/17/18 16:58 Dose: 50 mg Spironolactone (Aldactone) 25 mg PO DAILY [facility] Stop: 04/10/18 08:59 Last Admin: 02/17/18 10:09 Dose: 25 mg Zolpidem Tartrate (Ambien) 5 mg PO HS PRN PRN Reason: Insomnia Stop: 04/10/18 01:56 Last Admin: 02/17/18 21:19 Dose: 5 mg General: Alert, No acute distress HEENT: Atraumatic Neck: Supple Cardiovascular: Regular rate Lungs: Clear to auscultation Abdomen: Bowel sounds, Soft Extremities: Other (No edema, 4th toe of right leg has a 2 cm red area. ) Neurological: Other (Unstable gait) Skin: Other (warm and dry) Psych/Mental Status: Other (Confused, not oriented) - Procedures Procedures: Procedures Procedure Code Date DRAINAGE OF RIGHT AXILLA, OPEN APPROACH [id number] 04/21/16 DRAINAGE OF SKIN ABSCESS 20881 04/21/16 OTHER GROUP THERAPY 94.44 05/27/15 Assessment/Plan - Assessment Assessment: Patient is awake, alert, confused, not oriented. Dx: Increased in agitation, Cellulitis of 4th right toe, schizophrenia, DM, CAD, A-fib, HTN. - Plan Plan: Patient under psychiatric care, Bactrim is added to treatment . will continue with SNF meds. Nutritional Asmnt/Malnutr-PDOC - Dietary Evaluation Malnutrition Findings (Please click <Entered> for more info): Nutritional Asmnt/Malnutrition Start: 02/12/18 14: 02 Text: Status: Complete Freq: Document 02/12/18 14:02 BECKY (Rec: 02/12/18 14:12 [email or web address]) Nutritional Asmnt/Malnutrition Patient General Information Nutritional Screening Moderate Risk Diagnosis psychosis Pertinent Medical Hx/Surgical Hx CAD, CHF, HTN, psychosis, schizophrenia, DM, hypothyroidism Subjective Information Pt seen sitting up in bed having lunch, awake and alert. Pt reported good appetite and no known food allergy. Per EMR, PO intake 75-100%. Current Diet Order/ Nutrition Support cardiac Pertinent Medications colace, omega 3, folate, lasix , novolog, levemir, mag-oxide, protonix, seroquel Pertinent Labs 02/11 K 3.4, glucose 213, POC 98 -118 02/08 glucose 138, POC 152, A1c 9.5 Nutritional Hx/Data Height 1.73 m Height (Calculated Centimeters) 172.7 Current Weight (lbs) 95.254 kg Weight (Calculated Kilograms) 95.3 Weight (Calculated Grams) 06174.4 [place] Body Weight 140 Body Mass Index (BMI) 31.9 Weight Status Obese GI Symptoms GI Symptoms None Last BM 02/11 Difficult in: None Usual diet at home pt stated no diet restriction. But pt came from care facility noted from H&P. Skin Integrity/Comment: intact, dryness, bruises Current %PO Good (75-100%) Estimated Nutritional Goals BEE in Kcals: Adj wt of IBW Calories/Kcals/Kg 25-30 Kcals Calculated 8556-5906 Protein: Adj wt of IBW Protein g/k-1.2 Protein Calculated 72-86 Fluid: ml 1800-2160ml (1ml/kcal) Nutritional Problem 1. Problem Problem altered nutrition related lab values Etiology hx of DM Signs/Symptoms: glucose 138-213, POC 98-347, A1c 9.5 Malnutrition Alert Protein-Calorie Malnutrition N/A Is there a minimum of two criteria No selected? Query Text:Check all the applicable criteria. A minimum of two criteria are recommended for diagnosis of either severe or non-severe malnutrition. Intervention/Recommendation Comments 1. Recommend adding CCHO-60gm diet for better glycemic control. RN notified. Explained diabetic diet to pt and pt is willing to follow it . 2. Monitor PO intake, wt, labs and skin integrity 3. F/U as moderate risk in 3-5 days, 02/15-02/17 Expected Outcomes/Goals Expected Outcomes/Goals 1. PO intake to meet at least 75% of nutritional needs. 2. Wt stability, skin to remain intact, labs to approach WNL.
[2018-02-18] MEDS: Multivitamin w/ Minerals Tab PO SCH (09:06)
[2018-02-18] MEDS: Fish Oil 1,000 MG SGL PO SCH ×2 (09:08→16:38)
[2018-02-18] MEDS: Pantoprazole 40 mg EC Tab PO SCH (09:08)
[2018-02-18] MEDS: Aspirin 81mg Chewable Tab PO SCH (09:09)
[2018-02-18] MEDS: Insulin Detemir 100 units/mL 10mL Vial SUBQ SCH ×2 (09:25→21:06)
[2018-02-18] MEDS: Diltiazem 30 mg Tab PO SCH ×2 (09:28→16:44)
[2018-02-18] MEDS ORDERED: Sulfamethoxazole/TMP 800/160mg Tab PO SCH (10:00)
[2018-02-18] MEDS: APAP/Oxycodone 5/325mg Oral Tab PO PRN (10:58)
--- NOTE | 2018-02-18 19:13 | Progress Notes ---
DATE: 02/18/2018 SUBJECTIVE: Staff was spoken to. The patient is interviewed, mood is noted to be irritable. Affect is constricted. The patient is isolative and withdrawn. Coping skills are noted to be still poor. The patient is able to tolerate the medication. The patient is currently on Depakote and Seroquel, able to tolerate medications. No side effects to the medications are noted. The patient has been able to verbalize the concerns rather than to act out. JOB# [id number]
[2018-02-19] MEDS: INSULIN ASPART SLIDING SCALE 100 UNITS/ML UNIT SUBQ SCH ×4 (06:40→21:07)
[2018-02-19] MEDS: Fish Oil 1,000 MG SGL PO SCH ×2 (08:42→17:19)
[2018-02-19] MEDS: Multivitamin w/ Minerals Tab PO SCH (08:42)
[2018-02-19] MEDS: Aspirin 81mg Chewable Tab PO SCH (08:43)
[2018-02-19] MEDS: Diltiazem 30 mg Tab PO SCH ×2 (08:47→17:24)
[2018-02-19] MEDS: Insulin Detemir 100 units/mL 10mL Vial SUBQ SCH ×2 (09:13→21:08)
--- NOTE | 2018-02-19 10:26 | General Progress Note ---
Subjective - Review of Systems Service Date: 02/19/18 Subjective: I have pain in my toe. Objective - Results Result Diagrams: 02/11/18 07:17 02/11/18 07:17 Recent Labs: Laboratory Last Values WBC 6.5 Th/cmm (4.8-10.8) 02/11/18 07:17 RBC 4.36 Mil/cmm (3.80-5.20) 02/11/18 07:17 Hgb 13.0 gm/dL (12-16) 02/11/18 07:17 Hct 38.0 % (41.0-60) L 02/11/18 07:17 MCV 87.2 fl (81-100) 02/11/18 07:17 MCH 29.7 pg (27.0-31.0) 02/11/18 07:17 MCHC Differential 34.0 pg (28.0-36.0) 02/11/18 07:17 RDW 13.2 % (11.5-20.0) 02/11/18 07:17 Plt Count 178 Th/cmm (150-400) 02/11/18 07:17 MPV 9.2 fl 02/11/18 07:17 Neutrophils % 57.8 % (40.0-80.0) 02/11/18 07:17 Lymphocytes % 23.9 % (20.0-50.0) 02/11/18 07:17 Monocytes % 10.7 % (2.0-10.0) H 02/11/18 07:17 Eosinophils % 7.0 % (0.0-5.0) H 02/11/18 07:17 Basophils % 0.6 % (0.0-2.0) 02/11/18 07:17 Sodium 136 mEq/L (136-145) 02/11/18 07:17 Potassium 3.4 mEq/L (3.5-5.1) L 02/11/18 07:17 Chloride 103 mEq/L (98-107) 02/11/18 07:17 Carbon Dioxide 26.3 mEq/L (21.0-31.0) 02/11/18 07:17 Anion Gap 10.1 (7.0-16.0) 02/11/18 07:17 BUN 20 mg/dL (7-25) 02/11/18 07:17 Creatinine 0.9 mg/dL (0.6-1.2) 02/11/18 07:17 Est GFR ( Amer) TNP 02/11/18 07:17 Est GFR (Non-Af Amer) TNP 02/11/18 07:17 BUN/Creatinine Ratio 22.2 02/11/18 07:17 Glucose 213 mg/dL (70-105) H 02/11/18 07:17 POC Glucose 112 MG/DL (70 - 105) H 02/19/18 05:51 Hemoglobin A1c % 9.5 % (4.0-6.0) H 02/08/18 21:54 Calcium 9.2 mg/dL (8.6-10.3) 02/11/18 07:17 Total Bilirubin 0.7 mg/dL (0.3-1.0) 02/11/18 07:17 AST 12 U/L (13-39) L 02/11/18 07:17 ALT 9 U/L (7-52) 02/11/18 07:17 Alkaline Phosphatase 95 U/L (34-104) 02/11/18 07:17 Total Protein 6.9 gm/dL (6.0-8.3) 02/11/18 07:17 Albumin 3.6 gm/dL (3.7-5.3) L 02/11/18 07:17 Globulin 3.3 gm/dL 02/11/18 07:17 Albumin/Globulin Ratio 1.1 (1.0-1.8) 02/11/18 07:17 Triglycerides 107 mg/dL (<150) 02/08/18 21:54 Cholesterol 120 mg/dL (<200) 02/08/18 21:54 LDL Cholesterol Direct 68 mg/dL (75-193) L 02/08/18 21:54 HDL Cholesterol 34 mg/dL (23-92) 02/08/18 21:54 TSH 4.07 uIU/ml (0.34-5.60) 02/08/18 21:54 Salicylates < 25.0 mg/L (30.0-100.0) L 02/08/18 21:54 Acetaminophen < 10.0 ug/mL (10.0-30.0) L 02/08/18 21:54 Valproic Acid < 10.0 ug/mL (50.0-100.0) L 02/08/18 21:54 Ethyl Alcohol < 10 mg/dL (0-10) 02/08/18 21:54 RPR NONREACTIVE (NONREACTIVE) 02/08/18 21:54 - Physical Exam Vitals and I&O: Vital Signs Temp 97.4 F 02/19/18 06:13 Pulse 72 02/19/18 08:47 Resp 12 02/19/18 07:00 BP 113/73 02/19/18 08:44 Pulse Ox 97 02/19/18 07:00 Intake & Output 02/18/18 02/19/18 02/19/18 18:59 06:59 18:59 Intake Total 960 240 Balance 960 240 Intake: Oral 960 240 Other: # Voids 3 2 # Bowel Movements 0 Active Medications: Current Medications Acetaminophen (Tylenol) 650 mg PO Q4HR PRN PRN Reason: Mild Pain / Temp above 100 Stop: 04/10/18 01:56 Al Hydrox/Mg Hydrox/Simethicone (Maalox) 30 ml PO Q4HR PRN PRN Reason: GI DISTRESS Stop: 04/10/18 01:56 Last Admin: 02/10/18 12:08 Dose: 30 ml Aspirin (Aspirin Chewable) 81 mg PO DAILY [facility] Stop: 04/10/18 08:59 Last Admin: 02/19/18 08:43 Dose: 81 mg Atorvastatin Calcium (Lipitor) 40 mg PO HS [facility] PRN Reason: Protocol Stop: 04/10/18 20:59 Last Admin: 02/18/18 21:03 Dose: 40 mg Azithromycin (Zithromax) 500 mg PO DAILY [facility] Stop: 02/22/18 09:01 Last Admin: 02/19/18 08:45 Dose: 500 mg Carvedilol (Coreg) 3.125 mg PO BID [facility] Stop: 04/10/18 08:59 Last Admin: 02/19/18 08:44 Dose: 3.125 mg Diltiazem HCl (Cardizem) 30 mg PO BID [facility] Stop: 04/10/18 08:59 Last Admin: 02/19/18 08:47 Dose: 30 mg Divalproex Sodium (Depakote Dr) 250 mg PO BID [facility] PRN Reason: Protocol Stop: 04/13/18 16:59 Last Admin: 02/19/18 08:42 Dose: 250 mg Docusate Sodium (Colace) 100 mg PO DAILY [facility] Stop: 04/10/18 08:59 Last Admin: 02/19/18 08:43 Dose: 100 mg Fish Oil ([place] 3) 1,000 mg PO BID [facility] Stop: 04/10/18 08:59 Last Admin: 02/19/18 08:42 Dose: 1,000 mg Folic Acid (Folate) 1 mg PO DAILY [facility] Stop: 04/10/18 08:59 Last Admin: 02/19/18 08:43 Dose: 1 mg Furosemide (Lasix) 20 mg PO DAILY [facility] Stop: 04/10/18 08:59 Last Admin: 02/19/18 08:44 Dose: 20 mg Gabapentin (Neurontin) 400 mg PO Q8H [facility] Stop: 04/14/18 05:59 Last Admin: 02/19/18 06:18 Dose: 400 mg Insulin Aspart (Novolog Insulin Sliding Scale) 0 units SUBQ ACHS [facility] PRN Reason: Protocol Stop: 04/10/18 11:29 Last Admin: 02/19/18 06:40 Dose: Not Given Insulin Detemir (Levemir Insulin) 40 units SUBQ Q12HR [facility] PRN Reason: Protocol Stop: 04/10/18 08:59 Last Admin: 02/19/18 09:13 Dose: 40 units Ipratropium [place] (Atrovent Neb 0.5mg/2.5ml) 0.5 mg HHN Q6HRT PRN PRN Reason: Shortness of Breath Stop: 04/10/18 06:44 Lorazepam (Ativan) 0.5 mg PO Q6HR PRN; Protocol PRN Reason: Anxiety Stop: 03/11/18 01:56 Last Admin: 02/16/18 20:11 Dose: 0.5 mg Losartan Potassium (Cozaar) 50 mg PO DAILY [facility] Stop: 04/10/18 08:59 Last Admin: 02/19/18 08:43 Dose: 50 mg Magnesium Oxide (Mag-Oxide) 400 mg PO DAILY [facility] Stop: 04/10/18 08:59 Last Admin: 02/19/18 08:43 Dose: 400 mg Montelukast Sodium (Singulair) 10 mg PO HS [facility] Stop: 04/10/18 20:59 Last Admin: 02/18/18 21:09 Dose: 10 mg Naproxen (Naprosyn) 500 mg PO BIDWM [facility] Stop: 04/19/18 17:59 Last Admin: 02/19/18 09:07 Dose: 500 mg Oxycodone/Acetaminophen (Percocet 5/325mg Oral Tab) 1 tab PO Q6H PRN PRN Reason: moderate pain 4-6 Stop: 04/10/18 03:14 Last Admin: 02/18/18 10:58 Dose: 1 tab Pantoprazole Sodium (Protonix) 40 mg PO DAILY [facility] Stop: 04/10/18 08:59 Last Admin: 02/18/18 09:08 Dose: 40 mg Propafenone HCl (Rythmol) 225 mg PO Q8HR [facility] Stop: 04/10/18 12:59 Last Admin: 02/19/18 06:17 Dose: 225 mg Quetiapine Fumarate (Seroquel) 50 mg PO BID [facility] Stop: 04/16/18 16:59 Last Admin: 02/19/18 08:44 Dose: 50 mg Spironolactone (Aldactone) 25 mg PO DAILY [facility] Stop: 04/10/18 08:59 Last Admin: 02/19/18 08:44 Dose: 25 mg Zolpidem Tartrate (Ambien) 5 mg PO HS PRN PRN Reason: Insomnia Stop: 04/10/18 01:56 Last Admin: 02/17/18 21:19 Dose: 5 mg General: Alert, No acute distress HEENT: Atraumatic Neck: Supple Cardiovascular: Regular rate Lungs: Clear to auscultation Abdomen: Bowel sounds, Soft Extremities: Other (No edema, 4th toe of right leg has a 2 cm red area. ) Neurological: Other (Unstable gait) Skin: Other (warm and dry) Psych/Mental Status: Other (Confused, not oriented) - Procedures Procedures: Procedures Procedure Code Date DRAINAGE OF RIGHT AXILLA, OPEN APPROACH [id number] 04/21/16 DRAINAGE OF SKIN ABSCESS 29076 04/21/16 OTHER GROUP THERAPY 94.44 05/27/15 Assessment/Plan - Assessment Assessment: Patient is awake, alert, confused, not oriented. Dx: Increased in agitation, Cellulitis of 4th right toe, schizophrenia, DM, CAD, A-fib, HTN. - Plan Plan: Patient under psychiatric care, Bactrim is added to treatment . will continue with SNF meds. Nutritional Asmnt/Malnutr-PDOC - Dietary Evaluation Malnutrition Findings (Please click <Entered> for more info): Nutritional Asmnt/Malnutrition Start: 02/12/18 14: 02 Text: Status: Complete Freq: Document 02/12/18 14:02 PATRICIAASAD (Rec: 02/12/18 14:12 BECKY [email or web address]) Nutritional Asmnt/Malnutrition Patient General Information Nutritional Screening Moderate Risk Diagnosis psychosis Pertinent Medical Hx/Surgical Hx CAD, CHF, HTN, psychosis, schizophrenia, DM, hypothyroidism Subjective Information Pt seen sitting up in bed having lunch, awake and alert. Pt reported good appetite and no known food allergy. Per EMR, PO intake 75-100%. Current Diet Order/ Nutrition Support cardiac Pertinent Medications colace, omega 3, folate, lasix , novolog, levemir, mag-oxide, protonix, seroquel Pertinent Labs 02/11 K 3.4, glucose 213, POC 98 -118 4/3 glucose 138, POC 152, A1c 9.5 Nutritional Hx/Data Height 1.73 m Height (Calculated Centimeters) 172.7 Current Weight (lbs) 95.254 kg Weight (Calculated Kilograms) 95.3 Weight (Calculated Grams) 51523.4 [place] Body Weight 140 Body Mass Index (BMI) 31.9 Weight Status Obese GI Symptoms GI Symptoms None Last BM 4/6 Difficult in: None Usual diet at home pt stated no diet restriction. But pt came from care facility noted from H&P. Skin Integrity/Comment: intact, dryness, bruises Current %PO Good (75-100%) Estimated Nutritional Goals BEE in Kcals: Adj wt of IBW Calories/Kcals/Kg 25-30 Kcals Calculated 2754-6205 Protein: Adj wt of IBW Protein g/k-1.2 Protein Calculated 72-86 Fluid: ml 1800-2160ml (1ml/kcal) Nutritional Problem 1. Problem Problem altered nutrition related lab values Etiology hx of DM Signs/Symptoms: glucose 138-213, POC 98-347, A1c 9.5 Malnutrition Alert Protein-Calorie Malnutrition N/A Is there a minimum of two criteria No selected? Query Text:Check all the applicable criteria. A minimum of two criteria are recommended for diagnosis of either severe or non-severe malnutrition. Intervention/Recommendation Comments 1. Recommend adding CCHO-60gm diet for better glycemic control. RN notified. Explained diabetic diet to pt and pt is willing to follow it . 2. Monitor PO intake, wt, labs and skin integrity 3. F/U as moderate risk in 3-5 days, 02/15-02/17 Expected Outcomes/Goals Expected Outcomes/Goals 1. PO intake to meet at least 75% of nutritional needs. 2. Wt stability, skin to remain intact, labs to approach WNL.
[2018-02-19] MEDS: Pantoprazole 40 mg EC Tab PO SCH (14:00)
--- NOTE | 2018-02-19 18:51 | Progress Notes ---
DATE: 02/19/2018 SUBJECTIVE: Staff was spoken to. The patient is interviewed. Mood is noted to be irritable. Affect is appropriate. Mood swings are coming under control. No side effects to the medications noted. The patient is currently on low dose valproic acid as well as the quetiapine 50 mg twice a day and the patient is going to be closely monitored. I encouraged the patient to verbalize the concerns rather than to act out. [facility]# [id number]
[2018-02-20] MEDS: INSULIN ASPART SLIDING SCALE 100 UNITS/ML UNIT SUBQ SCH ×4 (06:41→21:17)
--- NOTE | 2018-02-20 11:45 | General Progress Note ---
Subjective - Review of Systems Service Date: 02/20/18 Subjective: I have pain in my toe. Objective - Results Result Diagrams: 02/11/18 07:17 02/11/18 07:17 Recent Labs: Laboratory Last Values WBC 6.5 Th/cmm (4.8-10.8) 02/11/18 07:17 RBC 4.36 Mil/cmm (3.80-5.20) 02/11/18 07:17 Hgb 13.0 gm/dL (12-16) 02/11/18 07:17 Hct 38.0 % (41.0-60) L 02/11/18 07:17 MCV 87.2 fl (81-100) 02/11/18 07:17 MCH 29.7 pg (27.0-31.0) 02/11/18 07:17 MCHC Differential 34.0 pg (28.0-36.0) 02/11/18 07:17 RDW 13.2 % (11.5-20.0) 02/11/18 07:17 Plt Count 178 Th/cmm (150-400) 02/11/18 07:17 MPV 9.2 fl 02/11/18 07:17 Neutrophils % 57.8 % (40.0-80.0) 02/11/18 07:17 Lymphocytes % 23.9 % (20.0-50.0) 02/11/18 07:17 Monocytes % 10.7 % (2.0-10.0) H 02/11/18 07:17 Eosinophils % 7.0 % (0.0-5.0) H 02/11/18 07:17 Basophils % 0.6 % (0.0-2.0) 02/11/18 07:17 Sodium 136 mEq/L (136-145) 02/11/18 07:17 Potassium 3.4 mEq/L (3.5-5.1) L 02/11/18 07:17 Chloride 103 mEq/L (98-107) 02/11/18 07:17 Carbon Dioxide 26.3 mEq/L (21.0-31.0) 02/11/18 07:17 Anion Gap 10.1 (7.0-16.0) 02/11/18 07:17 BUN 20 mg/dL (7-25) 02/11/18 07:17 Creatinine 0.9 mg/dL (0.6-1.2) 02/11/18 07:17 Est GFR ( Amer) TNP 02/11/18 07:17 Est GFR (Non-Af Amer) TNP 02/11/18 07:17 BUN/Creatinine Ratio 22.2 02/11/18 07:17 Glucose 213 mg/dL (70-105) H 02/11/18 07:17 POC Glucose 162 MG/DL (70 - 105) H 02/20/18 06:13 Hemoglobin A1c % 9.5 % (4.0-6.0) H 02/08/18 21:54 Calcium 9.2 mg/dL (8.6-10.3) 02/11/18 07:17 Total Bilirubin 0.7 mg/dL (0.3-1.0) 02/11/18 07:17 AST 12 U/L (13-39) L 02/11/18 07:17 ALT 9 U/L (7-52) 02/11/18 07:17 Alkaline Phosphatase 95 U/L (34-104) 02/11/18 07:17 Total Protein 6.9 gm/dL (6.0-8.3) 02/11/18 07:17 Albumin 3.6 gm/dL (3.7-5.3) L 02/11/18 07:17 Globulin 3.3 gm/dL 02/11/18 07:17 Albumin/Globulin Ratio 1.1 (1.0-1.8) 02/11/18 07:17 Triglycerides 107 mg/dL (<150) 02/08/18 21:54 Cholesterol 120 mg/dL (<200) 02/08/18 21:54 LDL Cholesterol Direct 68 mg/dL (75-193) L 02/08/18 21:54 HDL Cholesterol 34 mg/dL (23-92) 02/08/18 21:54 TSH 4.07 uIU/ml (0.34-5.60) 02/08/18 21:54 Salicylates < 25.0 mg/L (30.0-100.0) L 02/08/18 21:54 Acetaminophen < 10.0 ug/mL (10.0-30.0) L 02/08/18 21:54 Valproic Acid < 10.0 ug/mL (50.0-100.0) L 02/08/18 21:54 Ethyl Alcohol < 10 mg/dL (0-10) 02/08/18 21:54 RPR NONREACTIVE (NONREACTIVE) 02/08/18 21:54 - Physical Exam Vitals and I&O: Vital Signs Temp 97.8 F 02/20/18 06:44 Pulse 68 02/20/18 08:00 Resp 12 02/20/18 08:00 BP 122/53 02/20/18 06:44 Pulse Ox 94 02/20/18 08:00 Intake & Output 02/19/18 02/20/18 02/20/18 18:59 06:59 18:59 Intake Total 1200 360 Balance 1200 360 Intake: Oral 1200 360 Other: # Voids 1 # Bowel Movements 1 Stool Characteristics Soft Formed Active Medications: Current Medications Acetaminophen (Tylenol) 650 mg PO Q4HR PRN PRN Reason: Mild Pain / Temp above 100 Stop: 04/10/18 01:56 Al Hydrox/Mg Hydrox/Simethicone (Maalox) 30 ml PO Q4HR PRN PRN Reason: GI DISTRESS Stop: 04/10/18 01:56 Last Admin: 02/10/18 12:08 Dose: 30 ml Aspirin (Aspirin Chewable) 81 mg PO DAILY [facility] Stop: 04/10/18 08:59 Last Admin: 02/19/18 08:43 Dose: 81 mg Atorvastatin Calcium (Lipitor) 40 mg PO HS [facility] PRN Reason: Protocol Stop: 04/10/18 20:59 Last Admin: 02/19/18 21:00 Dose: 40 mg Azithromycin (Zithromax) 500 mg PO DAILY [facility] Stop: 02/22/18 09:01 Last Admin: 02/19/18 08:45 Dose: 500 mg Carvedilol (Coreg) 3.125 mg PO BID [facility] Stop: 04/10/18 08:59 Last Admin: 02/19/18 17:18 Dose: 3.125 mg Diltiazem HCl (Cardizem) 30 mg PO BID [facility] Stop: 04/10/18 08:59 Last Admin: 02/19/18 17:24 Dose: 30 mg Divalproex Sodium (Depakote Dr) 250 mg PO BID [facility] PRN Reason: Protocol Stop: 04/13/18 16:59 Last Admin: 02/19/18 17:18 Dose: 250 mg Docusate Sodium (Colace) 100 mg PO DAILY [facility] Stop: 04/10/18 08:59 Last Admin: 02/19/18 08:43 Dose: 100 mg Fish Oil ([place] 3) 1,000 mg PO BID [facility] Stop: 04/10/18 08:59 Last Admin: 02/19/18 17:19 Dose: 1,000 mg Folic Acid (Folate) 1 mg PO DAILY [facility] Stop: 04/10/18 08:59 Last Admin: 02/19/18 08:43 Dose: 1 mg Furosemide (Lasix) 20 mg PO DAILY [facility] Stop: 04/10/18 08:59 Last Admin: 02/19/18 08:44 Dose: 20 mg Gabapentin (Neurontin) 400 mg PO Q8H [facility] Stop: 04/14/18 05:59 Last Admin: 02/20/18 06:39 Dose: 400 mg Insulin Aspart (Novolog Insulin Sliding Scale) 0 units SUBQ ACHS [facility] PRN Reason: Protocol Stop: 04/10/18 11:29 Last Admin: 02/20/18 06:41 Dose: 2 units Insulin Detemir (Levemir Insulin) 40 units SUBQ Q12HR [facility] PRN Reason: Protocol Stop: 04/10/18 08:59 Last Admin: 02/19/18 21:08 Dose: 40 100 Ipratropium [place] (Atrovent Neb 0.5mg/2.5ml) 0.5 mg HHN Q6HRT PRN PRN Reason: Shortness of Breath Stop: 04/10/18 06:44 Lorazepam (Ativan) 0.5 mg PO Q6HR PRN; Protocol PRN Reason: Anxiety Stop: 03/11/18 01:56 Last Admin: 02/19/18 13:58 Dose: 0.5 mg Losartan Potassium (Cozaar) 50 mg PO DAILY [facility] Stop: 04/10/18 08:59 Last Admin: 02/19/18 08:43 Dose: 50 mg Magnesium Oxide (Mag-Oxide) 400 mg PO DAILY [facility] Stop: 04/10/18 08:59 Last Admin: 02/19/18 08:43 Dose: 400 mg Montelukast Sodium (Singulair) 10 mg PO HS [facility] Stop: 04/10/18 20:59 Last Admin: 02/19/18 21:00 Dose: 10 mg Naproxen (Naprosyn) 500 mg PO BIDWM [facility] Stop: 04/19/18 17:59 Last Admin: 02/19/18 17:24 Dose: 500 mg Oxycodone/Acetaminophen (Percocet 5/325mg Oral Tab) 1 tab PO Q6H PRN PRN Reason: moderate pain 4-6 Stop: 04/10/18 03:14 Last Admin: 02/18/18 10:58 Dose: 1 tab Pantoprazole Sodium (Protonix) 40 mg PO DAILY [facility] Stop: 04/10/18 08:59 Last Admin: 02/19/18 14:00 Dose: Not Given Propafenone HCl (Rythmol) 225 mg PO Q8HR [facility] Stop: 04/10/18 12:59 Last Admin: 02/20/18 06:39 Dose: 225 mg Quetiapine Fumarate (Seroquel) 50 mg PO BID [facility] Stop: 04/16/18 16:59 Last Admin: 02/19/18 17:19 Dose: 50 mg Spironolactone (Aldactone) 25 mg PO DAILY [facility] Stop: 04/10/18 08:59 Last Admin: 02/19/18 08:44 Dose: 25 mg Zolpidem Tartrate (Ambien) 5 mg PO HS PRN PRN Reason: Insomnia Stop: 04/10/18 01:56 Last Admin: 02/17/18 21:19 Dose: 5 mg General: Alert, No acute distress HEENT: Atraumatic Neck: Supple Cardiovascular: Regular rate Lungs: Clear to auscultation Abdomen: Bowel sounds, Soft Extremities: Other (No edema, 4th toe of right leg has a 2 cm red area. ) Neurological: Other (Unstable gait) Skin: Other (warm and dry) Psych/Mental Status: Other (Confused, not oriented) - Procedures Procedures: Procedures Procedure Code Date DRAINAGE OF RIGHT AXILLA, OPEN APPROACH [id number] 04/21/16 DRAINAGE OF SKIN ABSCESS 40185 04/21/16 OTHER GROUP THERAPY 94.44 05/27/15 Assessment/Plan - Assessment Assessment: Patient is awake, alert, confused, not oriented. Dx: Increased in agitation, Cellulitis of 4th right toe, schizophrenia, DM, CAD, A-fib, HTN. - Plan Plan: Patient under psychiatric care, Bactrim is added to treatment . will continue with SNF meds. Nutritional Asmnt/Malnutr-PDOC - Dietary Evaluation Malnutrition Findings (Please click <Entered> for more info): Nutritional Asmnt/Malnutrition Start: 02/12/18 14: 02 Text: Status: Complete Freq: Document 02/12/18 14:02 PATRICIAASAD (Rec: 02/12/18 14:12 BECKY [email or web address]) Nutritional Asmnt/Malnutrition Patient General Information Nutritional Screening Moderate Risk Diagnosis psychosis Pertinent Medical Hx/Surgical Hx CAD, CHF, HTN, psychosis, schizophrenia, DM, hypothyroidism Subjective Information Pt seen sitting up in bed having lunch, awake and alert. Pt reported good appetite and no known food allergy. Per EMR, PO intake 75-100%. Current Diet Order/ Nutrition Support cardiac Pertinent Medications colace, omega 3, folate, lasix , novolog, levemir, mag-oxide, protonix, seroquel Pertinent Labs 02/11 K 3.4, glucose 213, POC 98 -118 4/3 glucose 138, POC 152, A1c 9.5 Nutritional Hx/Data Height 1.73 m Height (Calculated Centimeters) 172.7 Current Weight (lbs) 95.254 kg Weight (Calculated Kilograms) 95.3 Weight (Calculated Grams) 20070.4 [place] Body Weight 140 Body Mass Index (BMI) 31.9 Weight Status Obese GI Symptoms GI Symptoms None Last BM 4/6 Difficult in: None Usual diet at home pt stated no diet restriction. But pt came from care facility noted from H&P. Skin Integrity/Comment: intact, dryness, bruises Current %PO Good (75-100%) Estimated Nutritional Goals BEE in Kcals: Adj wt of IBW Calories/Kcals/Kg 25-30 Kcals Calculated 2897-7531 Protein: Adj wt of IBW Protein g/k-1.2 Protein Calculated 72-86 Fluid: ml 1800-2160ml (1ml/kcal) Nutritional Problem 1. Problem Problem altered nutrition related lab values Etiology hx of DM Signs/Symptoms: glucose 138-213, POC 98-347, A1c 9.5 Malnutrition Alert Protein-Calorie Malnutrition N/A Is there a minimum of two criteria No selected? Query Text:Check all the applicable criteria. A minimum of two criteria are recommended for diagnosis of either severe or non-severe malnutrition. Intervention/Recommendation Comments 1. Recommend adding CCHO-60gm diet for better glycemic control. RN notified. Explained diabetic diet to pt and pt is willing to follow it . 2. Monitor PO intake, wt, labs and skin integrity 3. F/U as moderate risk in 3-5 days, 02/15-02/17 Expected Outcomes/Goals Expected Outcomes/Goals 1. PO intake to meet at least 75% of nutritional needs. 2. Wt stability, skin to remain intact, labs to approach WNL.
[2018-02-20] MEDS: Diltiazem 30 mg Tab PO SCH (12:05)
[2018-02-20] MEDS: Fish Oil 1,000 MG SGL PO SCH (12:05)
[2018-02-20] MEDS: Multivitamin w/ Minerals Tab PO SCH (12:06)
[2018-02-20] MEDS: Pantoprazole 40 mg EC Tab PO SCH (12:06)
[2018-02-20] MEDS: Aspirin 81mg Chewable Tab PO SCH (12:06)
[2018-02-20] MEDS: Insulin Detemir 100 units/mL 10mL Vial SUBQ SCH ×2 (12:19→21:20)
[2018-02-20] MEDS: APAP/Oxycodone 5/325mg Oral Tab PO PRN (21:56)
--- NOTE | 2018-02-21 04:17 | Progress Notes ---
DATE: 02/20/2018 SUBJECTIVE: Staff was spoken to. Patient is interviewed. Mood is noted to be irritable. Affect is constricted. Coping skills are noted to be still poor. The patient has been having difficult time to cope with the stress. The patient is trying to get out of the bed and she is not realizing that she cannot do so. The patient has been having difficult time to cope with the stress. ASSESSMENT: The patient is still impulsive. PLAN: To continue the patient with the current medications and followup. JOB# [id number]
[2018-02-21] MEDS: INSULIN ASPART SLIDING SCALE 100 UNITS/ML UNIT SUBQ SCH ×4 (06:55→20:33)
[2018-02-21] MEDS: Fish Oil 1,000 MG SGL PO SCH ×2 (08:58→16:30)
[2018-02-21] MEDS: Aspirin 81mg Chewable Tab PO SCH (08:59)
[2018-02-21] MEDS: Multivitamin w/ Minerals Tab PO SCH (09:00)
[2018-02-21] MEDS: Pantoprazole 40 mg EC Tab PO SCH (09:02)
[2018-02-21] MEDS: Diltiazem 30 mg Tab PO SCH ×2 (09:06→16:29)
--- NOTE | 2018-02-21 09:07 | General Progress Note ---
Subjective - Review of Systems Service Date: 02/21/18 Subjective: I have pain in my toe. Objective - Results Result Diagrams: 02/11/18 07:17 02/11/18 07:17 Recent Labs: Laboratory Last Values WBC 6.5 Th/cmm (4.8-10.8) 02/11/18 07:17 RBC 4.36 Mil/cmm (3.80-5.20) 02/11/18 07:17 Hgb 13.0 gm/dL (12-16) 02/11/18 07:17 Hct 38.0 % (41.0-60) L 02/11/18 07:17 MCV 87.2 fl (81-100) 02/11/18 07:17 MCH 29.7 pg (27.0-31.0) 02/11/18 07:17 MCHC Differential 34.0 pg (28.0-36.0) 02/11/18 07:17 RDW 13.2 % (11.5-20.0) 02/11/18 07:17 Plt Count 178 Th/cmm (150-400) 02/11/18 07:17 MPV 9.2 fl 02/11/18 07:17 Neutrophils % 57.8 % (40.0-80.0) 02/11/18 07:17 Lymphocytes % 23.9 % (20.0-50.0) 02/11/18 07:17 Monocytes % 10.7 % (2.0-10.0) H 02/11/18 07:17 Eosinophils % 7.0 % (0.0-5.0) H 02/11/18 07:17 Basophils % 0.6 % (0.0-2.0) 02/11/18 07:17 Sodium 136 mEq/L (136-145) 02/11/18 07:17 Potassium 3.4 mEq/L (3.5-5.1) L 02/11/18 07:17 Chloride 103 mEq/L (98-107) 02/11/18 07:17 Carbon Dioxide 26.3 mEq/L (21.0-31.0) 02/11/18 07:17 Anion Gap 10.1 (7.0-16.0) 02/11/18 07:17 BUN 20 mg/dL (7-25) 02/11/18 07:17 Creatinine 0.9 mg/dL (0.6-1.2) 02/11/18 07:17 Est GFR ( Amer) TNP 02/11/18 07:17 Est GFR (Non-Af Amer) TNP 02/11/18 07:17 BUN/Creatinine Ratio 22.2 02/11/18 07:17 Glucose 213 mg/dL (70-105) H 02/11/18 07:17 POC Glucose 165 MG/DL (70 - 105) H 02/21/18 06:28 Hemoglobin A1c % 9.5 % (4.0-6.0) H 02/08/18 21:54 Calcium 9.2 mg/dL (8.6-10.3) 02/11/18 07:17 Total Bilirubin 0.7 mg/dL (0.3-1.0) 02/11/18 07:17 AST 12 U/L (13-39) L 02/11/18 07:17 ALT 9 U/L (7-52) 02/11/18 07:17 Alkaline Phosphatase 95 U/L (34-104) 02/11/18 07:17 Total Protein 6.9 gm/dL (6.0-8.3) 02/11/18 07:17 Albumin 3.6 gm/dL (3.7-5.3) L 02/11/18 07:17 Globulin 3.3 gm/dL 02/11/18 07:17 Albumin/Globulin Ratio 1.1 (1.0-1.8) 02/11/18 07:17 Triglycerides 107 mg/dL (<150) 02/08/18 21:54 Cholesterol 120 mg/dL (<200) 02/08/18 21:54 LDL Cholesterol Direct 68 mg/dL (75-193) L 02/08/18 21:54 HDL Cholesterol 34 mg/dL (23-92) 02/08/18 21:54 TSH 4.07 uIU/ml (0.34-5.60) 02/08/18 21:54 Salicylates < 25.0 mg/L (30.0-100.0) L 02/08/18 21:54 Acetaminophen < 10.0 ug/mL (10.0-30.0) L 02/08/18 21:54 Valproic Acid < 10.0 ug/mL (50.0-100.0) L 02/08/18 21:54 Ethyl Alcohol < 10 mg/dL (0-10) 02/08/18 21:54 RPR NONREACTIVE (NONREACTIVE) 02/08/18 21:54 - Physical Exam Vitals and I&O: Vital Signs Temp 96.9 F 02/21/18 06:40 Pulse 54 02/21/18 07:20 Resp 18 02/21/18 07:59 BP 98/55 02/21/18 06:40 Pulse Ox 97 02/21/18 07:20 Intake & Output 02/20/18 02/21/18 02/21/18 18:59 06:59 18:59 Intake Total 850 240 Balance 850 240 Weight (lbs) 95.254 kg Intake: Oral 850 240 Other: # Voids 4 3 # Bowel Movements 0 1 Stool Characteristics Soft Formed Formed Weight Source Bedscale Active Medications: Current Medications Acetaminophen (Tylenol) 650 mg PO Q4HR PRN PRN Reason: Mild Pain / Temp above 100 Stop: 04/10/18 01:56 Al Hydrox/Mg Hydrox/Simethicone (Maalox) 30 ml PO Q4HR PRN PRN Reason: GI DISTRESS Stop: 04/10/18 01:56 Last Admin: 02/10/18 12:08 Dose: 30 ml Aspirin (Aspirin Chewable) 81 mg PO DAILY [facility] Stop: 04/10/18 08:59 Last Admin: 02/20/18 12:06 Dose: 81 mg Atorvastatin Calcium (Lipitor) 40 mg PO HS [facility] PRN Reason: Protocol Stop: 04/10/18 20:59 Last Admin: 02/20/18 21:10 Dose: 40 mg Azithromycin (Zithromax) 500 mg PO DAILY [facility] Stop: 02/22/18 09:01 Last Admin: 02/20/18 12:11 Dose: 500 mg Carvedilol (Coreg) 3.125 mg PO BID [facility] Stop: 04/10/18 08:59 Last Admin: 02/20/18 12:08 Dose: 3.125 mg Clotrimazole (Lotrimin 1% Cream) 1 appl TP QSHIFT [facility] Stop: 04/21/18 19:59 Last Admin: 02/20/18 21:00 Dose: Not Given Diltiazem HCl (Cardizem) 30 mg PO BID [facility] Stop: 04/10/18 08:59 Last Admin: 02/20/18 12:05 Dose: 30 mg Divalproex Sodium (Depakote Dr) 250 mg PO BID [facility] PRN Reason: Protocol Stop: 04/13/18 16:59 Last Admin: 02/20/18 12:06 Dose: 250 mg Docusate Sodium (Colace) 100 mg PO DAILY [facility] Stop: 04/10/18 08:59 Last Admin: 02/20/18 12:10 Dose: 100 mg Fish Oil ([place] 3) 1,000 mg PO BID [facility] Stop: 04/10/18 08:59 Last Admin: 02/20/18 12:05 Dose: 1,000 mg Folic Acid (Folate) 1 mg PO DAILY [facility] Stop: 04/10/18 08:59 Last Admin: 02/20/18 12:10 Dose: 1 mg Furosemide (Lasix) 20 mg PO DAILY [facility] Stop: 04/10/18 08:59 Last Admin: 02/20/18 12:10 Dose: 20 mg Gabapentin (Neurontin) 400 mg PO Q8H [facility] Stop: 04/14/18 05:59 Last Admin: 02/21/18 06:21 Dose: 400 mg Insulin Aspart (Novolog Insulin Sliding Scale) 0 units SUBQ ACHS [facility] PRN Reason: Protocol Stop: 04/10/18 11:29 Last Admin: 02/21/18 06:55 Dose: 2 units Insulin Detemir (Levemir Insulin) 40 units SUBQ Q12HR [facility] PRN Reason: Protocol Stop: 04/10/18 08:59 Last Admin: 02/20/18 21:20 Dose: 40 units Ipratropium [place] (Atrovent Neb 0.5mg/2.5ml) 0.5 mg HHN Q6HRT PRN PRN Reason: Shortness of Breath Stop: 04/10/18 06:44 Lorazepam (Ativan) 0.5 mg PO Q6HR PRN; Protocol PRN Reason: Anxiety Stop: 03/11/18 01:56 Last Admin: 02/21/18 01:34 Dose: 0.5 mg Losartan Potassium (Cozaar) 50 mg PO DAILY [facility] Stop: 04/10/18 08:59 Last Admin: 02/20/18 12:21 Dose: Not Given Magnesium Oxide (Mag-Oxide) 400 mg PO DAILY [facility] Stop: 04/10/18 08:59 Last Admin: 02/20/18 12:00 Dose: 400 mg Montelukast Sodium (Singulair) 10 mg PO HS [facility] Stop: 04/10/18 20:59 Last Admin: 02/20/18 21:09 Dose: 10 mg Naproxen (Naprosyn) 500 mg PO BIDWM [facility] Stop: 04/19/18 17:59 Last Admin: 02/20/18 12:18 Dose: Not Given Oxycodone/Acetaminophen (Percocet 5/325mg Oral Tab) 1 tab PO Q6H PRN PRN Reason: moderate pain 4-6 Stop: 04/10/18 03:14 Last Admin: 02/20/18 21:56 Dose: 1 tab Pantoprazole Sodium (Protonix) 40 mg PO DAILY [facility] Stop: 04/10/18 08:59 Last Admin: 02/20/18 12:06 Dose: 40 mg Propafenone HCl (Rythmol) 225 mg PO Q8HR [facility] Stop: 04/10/18 12:59 Last Admin: 02/21/18 06:00 Dose: 225 mg Quetiapine Fumarate (Seroquel) 50 mg PO BID [facility] Stop: 04/16/18 16:59 Last Admin: 02/20/18 12:07 Dose: 50 mg Spironolactone (Aldactone) 25 mg PO DAILY [facility] Stop: 04/10/18 08:59 Last Admin: 02/20/18 12:06 Dose: 25 mg Zolpidem Tartrate (Ambien) 5 mg PO HS PRN PRN Reason: Insomnia Stop: 04/10/18 01:56 Last Admin: 02/17/18 21:19 Dose: 5 mg General: Alert, No acute distress HEENT: Atraumatic Neck: Supple Cardiovascular: Regular rate Lungs: Clear to auscultation Abdomen: Bowel sounds, Soft Extremities: Other (No edema, 4th toe of right leg has a 2 cm red area. ) Neurological: Other (Unstable gait) Skin: Other (warm and dry) Psych/Mental Status: Other (Confused, not oriented) - Procedures Procedures: Procedures Procedure Code Date DRAINAGE OF RIGHT AXILLA, OPEN APPROACH [id number] 04/21/16 DRAINAGE OF SKIN ABSCESS 66619 04/21/16 OTHER GROUP THERAPY 94.44 05/27/15 Assessment/Plan - Assessment Assessment: Patient is awake, alert, confused, not oriented. Dx: Increased in agitation, Cellulitis of 4th right toe, schizophrenia, DM, CAD, A-fib, HTN. - Plan Plan: Patient under psychiatric care, Bactrim is added to treatment . will continue with SNF meds. Nutritional Asmnt/Malnutr-PDOC - Dietary Evaluation Malnutrition Findings (Please click <Entered> for more info): Nutritional Asmnt/Malnutrition Start: 02/12/18 14: 02 Text: Status: Complete Freq: Document 02/12/18 14:02 [facility] (Rec: 02/12/18 14:12 [facility] [email or web address]) Nutritional Asmnt/Malnutrition Patient General Information Nutritional Screening Moderate Risk Diagnosis psychosis Pertinent Medical Hx/Surgical Hx CAD, CHF, HTN, psychosis, schizophrenia, DM, hypothyroidism Subjective Information Pt seen sitting up in bed having lunch, awake and alert. Pt reported good appetite and no known food allergy. Per EMR, PO intake 75-100%. Current Diet Order/ Nutrition Support cardiac Pertinent Medications colace, omega 3, folate, lasix , novolog, levemir, mag-oxide, protonix, seroquel Pertinent Labs 4/ K 3.4, glucose 213, POC 98 -118 4/3 glucose 138, POC 152, A1c 9.5 Nutritional Hx/Data Height 1.73 m Height (Calculated Centimeters) 172.7 Current Weight (lbs) 95.254 kg Weight (Calculated Kilograms) 95.3 Weight (Calculated Grams) 86996.4 [place] Body Weight 140 Body Mass Index (BMI) 31.9 Weight Status Obese GI Symptoms GI Symptoms None Last BM 4/6 Difficult in: None Usual diet at home pt stated no diet restriction. But pt came from care facility noted from H&P. Skin Integrity/Comment: intact, dryness, bruises Current %PO Good (75-100%) Estimated Nutritional Goals BEE in Kcals: Adj wt of IBW Calories/Kcals/Kg 25-30 Kcals Calculated 5474-5524 Protein: Adj wt of IBW Protein g/k-1.2 Protein Calculated 72-86 Fluid: ml 1800-2160ml (1ml/kcal) Nutritional Problem 1. Problem Problem altered nutrition related lab values Etiology hx of DM Signs/Symptoms: glucose 138-213, POC 98-347, A1c 9.5 Malnutrition Alert Protein-Calorie Malnutrition N/A Is there a minimum of two criteria No selected? Query Text:Check all the applicable criteria. A minimum of two criteria are recommended for diagnosis of either severe or non-severe malnutrition. Intervention/Recommendation Comments 1. Recommend adding CCHO-60gm diet for better glycemic control. RN notified. Explained diabetic diet to pt and pt is willing to follow it . 2. Monitor PO intake, wt, labs and skin integrity 3. F/U as moderate risk in 3-5 days, 02/15-02/17 Expected Outcomes/Goals Expected Outcomes/Goals 1. PO intake to meet at least 75% of nutritional needs. 2. Wt stability, skin to remain intact, labs to approach WNL.
[2018-02-21] MEDS: Insulin Detemir 100 units/mL 10mL Vial SUBQ SCH ×2 (09:48→20:24)
[2018-02-21] MEDS: APAP/Oxycodone 5/325mg Oral Tab PO PRN (12:13)
--- NOTE | 2018-02-22 02:35 | Progress Notes ---
DATE: 02/21/2018 SUBJECTIVE: Staff was spoken to. The patient is interviewed. Mood is noted to be less irritable. The patient's mood swings are coming under control. No side effects to the medications are noted. Insight and judgment are noted to be improving at this time. The patient has been on Depakote and Seroquel and has been able to tolerate. No side effects to the medications are noted. ASSESSMENT: The patient is stabilizing. PLAN: To continue the patient with the supportive therapy. I encouraged the patient to verbalize the concerns rather than to act out. Once the staff is able to find the placement for this patient, the patient is going to be possibly discharged for followup on outpatient basis. JOB# [id number]
[2018-02-22] MEDS: INSULIN ASPART SLIDING SCALE 100 UNITS/ML UNIT SUBQ SCH ×2 (07:01→12:12)
--- NOTE | 2018-02-22 09:06 | General Progress Note ---
Subjective - Review of Systems Service Date: 02/22/18 Subjective: I have pain in my toe. Objective - Results Result Diagrams: 02/11/18 07:17 02/11/18 07:17 Recent Labs: Laboratory Last Values WBC 6.5 Th/cmm (4.8-10.8) 02/11/18 07:17 RBC 4.36 Mil/cmm (3.80-5.20) 02/11/18 07:17 Hgb 13.0 gm/dL (12-16) 02/11/18 07:17 Hct 38.0 % (41.0-60) L 02/11/18 07:17 MCV 87.2 fl (81-100) 02/11/18 07:17 MCH 29.7 pg (27.0-31.0) 02/11/18 07:17 MCHC Differential 34.0 pg (28.0-36.0) 02/11/18 07:17 RDW 13.2 % (11.5-20.0) 02/11/18 07:17 Plt Count 178 Th/cmm (150-400) 02/11/18 07:17 MPV 9.2 fl 02/11/18 07:17 Neutrophils % 57.8 % (40.0-80.0) 02/11/18 07:17 Lymphocytes % 23.9 % (20.0-50.0) 02/11/18 07:17 Monocytes % 10.7 % (2.0-10.0) H 02/11/18 07:17 Eosinophils % 7.0 % (0.0-5.0) H 02/11/18 07:17 Basophils % 0.6 % (0.0-2.0) 02/11/18 07:17 Sodium 136 mEq/L (136-145) 02/11/18 07:17 Potassium 3.4 mEq/L (3.5-5.1) L 02/11/18 07:17 Chloride 103 mEq/L (98-107) 02/11/18 07:17 Carbon Dioxide 26.3 mEq/L (21.0-31.0) 02/11/18 07:17 Anion Gap 10.1 (7.0-16.0) 02/11/18 07:17 BUN 20 mg/dL (7-25) 02/11/18 07:17 Creatinine 0.9 mg/dL (0.6-1.2) 02/11/18 07:17 Est GFR ( Amer) TNP 02/11/18 07:17 Est GFR (Non-Af Amer) TNP 02/11/18 07:17 BUN/Creatinine Ratio 22.2 02/11/18 07:17 Glucose 213 mg/dL (70-105) H 02/11/18 07:17 POC Glucose 160 MG/DL (70 - 105) H 02/22/18 06:04 Hemoglobin A1c % 9.5 % (4.0-6.0) H 02/08/18 21:54 Calcium 9.2 mg/dL (8.6-10.3) 02/11/18 07:17 Total Bilirubin 0.7 mg/dL (0.3-1.0) 02/11/18 07:17 AST 12 U/L (13-39) L 02/11/18 07:17 ALT 9 U/L (7-52) 02/11/18 07:17 Alkaline Phosphatase 95 U/L (34-104) 02/11/18 07:17 Total Protein 6.9 gm/dL (6.0-8.3) 02/11/18 07:17 Albumin 3.6 gm/dL (3.7-5.3) L 02/11/18 07:17 Globulin 3.3 gm/dL 02/11/18 07:17 Albumin/Globulin Ratio 1.1 (1.0-1.8) 02/11/18 07:17 Triglycerides 107 mg/dL (<150) 02/08/18 21:54 Cholesterol 120 mg/dL (<200) 02/08/18 21:54 LDL Cholesterol Direct 68 mg/dL (75-193) L 02/08/18 21:54 HDL Cholesterol 34 mg/dL (23-92) 02/08/18 21:54 TSH 4.07 uIU/ml (0.34-5.60) 02/08/18 21:54 Salicylates < 25.0 mg/L (30.0-100.0) L 02/08/18 21:54 Acetaminophen < 10.0 ug/mL (10.0-30.0) L 02/08/18 21:54 Valproic Acid < 10.0 ug/mL (50.0-100.0) L 02/08/18 21:54 Ethyl Alcohol < 10 mg/dL (0-10) 02/08/18 21:54 RPR NONREACTIVE (NONREACTIVE) 02/08/18 21:54 - Physical Exam Vitals and I&O: Vital Signs Temp 96.8 F 02/22/18 06:20 Pulse 61 02/22/18 07:10 Resp 20 02/22/18 07:10 BP 133/58 02/22/18 06:20 Pulse Ox 96 02/22/18 07:10 Intake & Output 02/21/18 02/22/18 02/22/18 18:59 06:59 18:59 Intake Total 1600 360 Balance 1600 360 Intake: Oral 1600 360 Other: # Voids 4 2 # Bowel Movements 1 2 Stool Characteristics Soft Formed Formed Active Medications: Current Medications Acetaminophen (Tylenol) 650 mg PO Q4HR PRN PRN Reason: Mild Pain / Temp above 100 Stop: 04/10/18 01:56 Al Hydrox/Mg Hydrox/Simethicone (Maalox) 30 ml PO Q4HR PRN PRN Reason: GI DISTRESS Stop: 04/10/18 01:56 Last Admin: 02/10/18 12:08 Dose: 30 ml Aspirin (Aspirin Chewable) 81 mg PO DAILY [facility] Stop: 04/10/18 08:59 Last Admin: 02/21/18 08:59 Dose: 81 mg Atorvastatin Calcium (Lipitor) 40 mg PO HS [facility] PRN Reason: Protocol Stop: 04/10/18 20:59 Last Admin: 02/21/18 20:22 Dose: 40 mg Carvedilol (Coreg) 3.125 mg PO BID [facility] Stop: 04/10/18 08:59 Last Admin: 02/21/18 16:31 Dose: Not Given Clotrimazole (Lotrimin 1% Cream) 1 appl TP QSHIFT [facility] Stop: 04/21/18 19:59 Last Admin: 02/21/18 20:18 Dose: 1 appl Diltiazem HCl (Cardizem) 30 mg PO BID [facility] Stop: 04/10/18 08:59 Last Admin: 02/21/18 16:29 Dose: 30 mg Divalproex Sodium (Depakote Dr) 250 mg PO BID [facility] PRN Reason: Protocol Stop: 04/13/18 16:59 Last Admin: 04/16/18 16:32 Dose: 250 mg Docusate Sodium (Colace) 100 mg PO DAILY [facility] Stop: 04/10/18 08:59 Last Admin: 02/21/18 09:01 Dose: 100 mg Fish Oil ([place] 3) 1,000 mg PO BID [facility] Stop: 04/10/18 08:59 Last Admin: 02/21/18 16:30 Dose: 1,000 mg Folic Acid (Folate) 1 mg PO DAILY [facility] Stop: 04/10/18 08:59 Last Admin: 02/21/18 09:00 Dose: 1 mg Furosemide (Lasix) 20 mg PO DAILY [facility] Stop: 04/10/18 08:59 Last Admin: 02/21/18 09:00 Dose: 20 mg Gabapentin (Neurontin) 400 mg PO Q8H [facility] Stop: 04/14/18 05:59 Last Admin: 02/22/18 06:00 Dose: 400 mg Insulin Aspart (Novolog Insulin Sliding Scale) 0 units SUBQ ACHS [facility] PRN Reason: Protocol Stop: 04/10/18 11:29 Last Admin: 02/22/18 07:01 Dose: 2 units Insulin Detemir (Levemir Insulin) 40 units SUBQ Q12HR [facility] PRN Reason: Protocol Stop: 04/10/18 08:59 Last Admin: 02/21/18 20:24 Dose: 40 units Ipratropium [place] (Atrovent Neb 0.5mg/2.5ml) 0.5 mg HHN Q6HRT PRN PRN Reason: Shortness of Breath Stop: 04/10/18 06:44 Lorazepam (Ativan) 0.5 mg PO Q6HR PRN; Protocol PRN Reason: Anxiety Stop: 03/11/18 01:56 Last Admin: 02/21/18 01:34 Dose: 0.5 mg Losartan Potassium (Cozaar) 50 mg PO DAILY [facility] Stop: 04/10/18 08:59 Last Admin: 02/21/18 08:59 Dose: Not Given Magnesium Oxide (Mag-Oxide) 400 mg PO DAILY [facility] Stop: 04/10/18 08:59 Last Admin: 02/21/18 09:01 Dose: 400 mg Montelukast Sodium (Singulair) 10 mg PO HS [facility] Stop: 04/10/18 20:59 Last Admin: 02/21/18 20:22 Dose: 10 mg Naproxen (Naprosyn) 500 mg PO BIDWM [facility] Stop: 04/19/18 17:59 Last Admin: 02/21/18 09:02 Dose: 500 mg Oxycodone/Acetaminophen (Percocet 5/325mg Oral Tab) 1 tab PO Q6H PRN PRN Reason: moderate pain 4-6 Stop: 04/10/18 03:14 Last Admin: 02/21/18 12:13 Dose: 1 tab Pantoprazole Sodium (Protonix) 40 mg PO DAILY [facility] Stop: 04/10/18 08:59 Last Admin: 02/21/18 09:02 Dose: 40 mg Propafenone HCl (Rythmol) 225 mg PO Q8HR [facility] Stop: 04/10/18 12:59 Last Admin: 02/22/18 05:02 Dose: 225 mg Quetiapine Fumarate (Seroquel) 50 mg PO BID [facility] Stop: 04/16/18 16:59 Last Admin: 02/21/18 16:36 Dose: 50 mg Spironolactone (Aldactone) 25 mg PO DAILY [facility] Stop: 04/10/18 08:59 Last Admin: 02/21/18 09:02 Dose: 25 mg Zolpidem Tartrate (Ambien) 5 mg PO HS PRN PRN Reason: Insomnia Stop: 04/10/18 01:56 Last Admin: 02/17/18 21:19 Dose: 5 mg General: Alert, No acute distress HEENT: Atraumatic Neck: Supple Cardiovascular: Regular rate Lungs: Clear to auscultation Abdomen: Bowel sounds, Soft Extremities: Other (No edema, 4th toe of right leg has a 2 cm red area. ) Neurological: Other (Unstable gait) Skin: Other (warm and dry) Psych/Mental Status: Other (Confused, not oriented) - Procedures Procedures: Procedures Procedure Code Date DRAINAGE OF RIGHT AXILLA, OPEN APPROACH [id number] 04/21/16 DRAINAGE OF SKIN ABSCESS 42580 04/21/16 OTHER GROUP THERAPY 94.44 05/27/15 Assessment/Plan - Assessment Assessment: Patient is awake, alert, confused, not oriented. Dx: Increased in agitation, Cellulitis of 4th right toe, schizophrenia, DM, CAD, A-fib, HTN. - Plan Plan: Patient under psychiatric care, Bactrim is added to treatment . will continue with SNF meds. Nutritional Asmnt/Malnutr-PDOC - Dietary Evaluation Malnutrition Findings (Please click <Entered> for more info): Nutritional Asmnt/Malnutrition Start: 02/12/18 14: 02 Text: Status: Complete Freq: Document 02/12/18 14:02 [facility] (Rec: 02/12/18 14:12 [email or web address] [email or web address]) Nutritional Asmnt/Malnutrition Patient General Information Nutritional Screening Moderate Risk Diagnosis psychosis Pertinent Medical Hx/Surgical Hx CAD, CHF, HTN, psychosis, schizophrenia, DM, hypothyroidism Subjective Information Pt seen sitting up in bed having lunch, awake and alert. Pt reported good appetite and no known food allergy. Per EMR, PO intake 75-100%. Current Diet Order/ Nutrition Support cardiac Pertinent Medications colace, omega 3, folate, lasix , novolog, levemir, mag-oxide, protonix, seroquel Pertinent Labs 4/6 K 3.4, glucose 213, POC 98 -118 4/3 glucose 138, POC 152, A1c 9.5 Nutritional Hx/Data Height 1.73 m Height (Calculated Centimeters) 172.7 Current Weight (lbs) 95.254 kg Weight (Calculated Kilograms) 95.3 Weight (Calculated Grams) 18025.4 [place] Body Weight 140 Body Mass Index (BMI) 31.9 Weight Status Obese GI Symptoms GI Symptoms None Last BM 4/6 Difficult in: None Usual diet at home pt stated no diet restriction. But pt came from care facility noted from H&P. Skin Integrity/Comment: intact, dryness, bruises Current %PO Good (75-100%) Estimated Nutritional Goals BEE in Kcals: Adj wt of IBW Calories/Kcals/Kg 25-30 Kcals Calculated 0494-4333 Protein: Adj wt of IBW Protein g/k-1.2 Protein Calculated 72-86 Fluid: ml 1800-2160ml (1ml/kcal) Nutritional Problem 1. Problem Problem altered nutrition related lab values Etiology hx of DM Signs/Symptoms: glucose 138-213, POC 98-347, A1c 9.5 Malnutrition Alert Protein-Calorie Malnutrition N/A Is there a minimum of two criteria No selected? Query Text:Check all the applicable criteria. A minimum of two criteria are recommended for diagnosis of either severe or non-severe malnutrition. Intervention/Recommendation Comments 1. Recommend adding CCHO-60gm diet for better glycemic control. RN notified. Explained diabetic diet to pt and pt is willing to follow it . 2. Monitor PO intake, wt, labs and skin integrity 3. F/U as moderate risk in 3-5 days, 02/15-02/17 Expected Outcomes/Goals Expected Outcomes/Goals 1. PO intake to meet at least 75% of nutritional needs. 2. Wt stability, skin to remain intact, labs to approach WNL.
[2018-02-22] MEDS: Insulin Detemir 100 units/mL 10mL Vial SUBQ SCH (09:23)
[2018-02-22] MEDS: Pantoprazole 40 mg EC Tab PO SCH (09:29)
[2018-02-22] MEDS: Fish Oil 1,000 MG SGL PO SCH (09:29)
[2018-02-22] MEDS: Diltiazem 30 mg Tab PO SCH (09:30)
[2018-02-22] MEDS: Aspirin 81mg Chewable Tab PO SCH (09:30)
[2018-02-22] MEDS: Multivitamin w/ Minerals Tab PO SCH (09:31)
--- NOTE | 2018-02-22 10:49 | Discharge Summary ---
DATE OF DISCHARGE: 02/22/2018 IDENTIFYING DATA: The patient is an 82-year-old woman, resident of [facility]. REASON FOR HOSPITALIZATION: The patient is admitted on a 5150 as a danger to others, being gravely disabled. CHIEF COMPLAINT: "I should not be in here and get me out of here." DIAGNOSES AT THE TIME OF ADMISSION: AXIS I: Psychotic disorder, not otherwise specified, rule out schizoaffective disorder. AXIS II: None. AXIS III: As per Dr. Ann. HISTORY OF PRESENT ILLNESS: Please refer to the 02/09/2018 dictation done by me. Physical examination at the time of the admission was done by Dr. Emiliano Ann and is noted to be significant for diabetes mellitus and high blood pressure. HOSPITAL COURSE AND RESPONSE TO TREATMENT: The patient has been observed on inpatient unit, provided with supportive psychotherapy. The patient is encouraged to participate in the groups and verbalize the concern. The patient started fairly well and the patient has been closely monitored and the patient has been placed on the valproic acid 250 mg twice a day and gabapentin was given 400 mg q.8 hours, and the patient was discharged with Seroquel 50 mg twice a day. MENTAL STATUS EXAMINATION: At the time of discharge, the patient's mood is noted to be anxious. Affect is appropriate. Not suicidal or homicidal. Insight and judgment are noted to be improving. Impulse control seems to be fair. No side effects to medications are noted. The patient has been able to verbalize the concerns rather than to act out at the time of discharge. CONDITION: At the time of discharge is noted to be stable. DIAGNOSES AT THE TIME OF DISCHARGE: AXIS I: Schizoaffective disorder. AXIS II: None. AXIS III: Diabetes mellitus and hypertension. AFTERCARE PLAN: The patient is discharged to be followed up by Dr. Castelan on an outpatient basis. [facility]# [id number]
== END 2018-02-22 13:55 | DRG 885 ==
LOC: ER 17:06 → GERO 21:50
PROVIDERS: ADMIT Psychiatry & Neurology Psychiatry; ATTEND Psychiatry & Neurology Psychiatry
DX: F25.9 Schizoaffective disorder, unspecified (principal); I11.0 Hypertensive heart disease with heart failure; F29 Unspecified psychosis not due to a substance or known physiological condition; Z66 Do not resuscitate; E11.9 Type 2 diabetes mellitus without complications; I25.10 Atherosclerotic heart disease of native coronary artery without angina pectoris; I48.91 Unspecified atrial fibrillation; M19.90 Unspecified osteoarthritis, unspecified site; E78.5 Hyperlipidemia, unspecified; F31.9 Bipolar disorder, unspecified; I50.9 Heart failure, unspecified; R41.3 Other amnesia; R45.87 Impulsiveness; E03.9 Hypothyroidism, unspecified; F41.9 Anxiety disorder, unspecified; L03.031 Cellulitis of right toe; Z88.0 Allergy status to penicillin; Z90.710 Acquired absence of both cervix and uterus; Z86.73 Personal history of transient ischemic attack (TIA), and cerebral infarction without residual deficits; Z88.2 Allergy status to sulfonamides; Z82.49 Family history of ischemic heart disease and other diseases of the circulatory system; Z88.8 Allergy status to other drugs, medicaments and biological substances; Z88.1 Allergy status to other antibiotic agents; Z91.040 Latex allergy status
CPT/HCPCS: 36415-UA; 80053-TC; 80061-TC; 80164-TC; 80320-TC; 80329-TC; 82948-90; 83036-90; 84443-TC; 85025-TC; 86592-TC; 93005; 94760; J1200; J1630; J1815; J2060; Z7610